=== PATIENT | male | born 1960 | race Caucasian/White ===

== ENCOUNTER → 2020-08-05 16:09 | Outpatient (REF) | payer OTHER, SELFPAY | LOC: ANHLAB 16:09 | PROVIDERS: PCP Family Medicine; Visit Provider Nurse Practitioner | DX: C44.519 Basal cell carcinoma of skin of other part of trunk (principal) | CPT/HCPCS: 88305 ==

== ENCOUNTER → 2020-09-22 07:48 | Outpatient (REF) | payer OTHER, SELFPAY | LOC: ANHLAB 07:48 | PROVIDERS: PCP Family Medicine; Visit Provider Nurse Practitioner | DX: C44.519 Basal cell carcinoma of skin of other part of trunk (principal) | CPT/HCPCS: 88305; 88331 ==

== ENCOUNTER → 2021-01-26 14:00 | Outpatient (REF) | payer OTHER, SELFPAY | LOC: ANHLAB 14:00 | PROVIDERS: PCP Family Medicine; Visit Provider Nurse Practitioner | DX: C44.629 Squamous cell carcinoma of skin of left upper limb, including shoulder (principal) | CPT/HCPCS: 88305 ==

== ENCOUNTER → 2021-05-07 03:27 | Outpatient (CLI) | payer OTHER, SELFPAY ==
[2021-05-07 20:01] LABS: SARS-CoV-2 RNA PCR Negative
== END ==
PROVIDERS: PCP Family Medicine; Visit Provider Family Medicine
DX: R05 Cough (principal); Z20.822 Contact with and (suspected) exposure to COVID-19
CPT/HCPCS: C9803; U0003; U0005

== ENCOUNTER → 2021-08-11 13:52 | Outpatient (REF) | payer OTHER, SELFPAY | LOC: ANHLAB 13:52 | PROVIDERS: PCP Family Medicine; Visit Provider Nurse Practitioner | DX: C44.311 Basal cell carcinoma of skin of nose (principal); C44.529 Squamous cell carcinoma of skin of other part of trunk; C44.209 Unspecified malignant neoplasm of skin of left ear and external auricular canal; L57.0 Actinic keratosis | CPT/HCPCS: 88305 ==

== ENCOUNTER → 2021-09-14 09:08 | Outpatient (REF) | payer OTHER, SELFPAY | LOC: ANHLAB 09:08 | PROVIDERS: PCP Family Medicine; Visit Provider Nurse Practitioner | DX: C44.629 Squamous cell carcinoma of skin of left upper limb, including shoulder (principal); C44.529 Squamous cell carcinoma of skin of other part of trunk | CPT/HCPCS: 88305; 88331 ==

== ENCOUNTER → 2021-09-28 07:02 | Outpatient (REF) | payer OTHER, SELFPAY | LOC: ANHLAB 07:02 | PROVIDERS: PCP Family Medicine; Visit Provider Nurse Practitioner | DX: C44.311 Basal cell carcinoma of skin of nose (principal); C44.229 Squamous cell carcinoma of skin of left ear and external auricular canal | CPT/HCPCS: 88305; 88331 ==

== ENCOUNTER → 2021-12-14 16:55 | Outpatient (REF) | payer OTHER, SELFPAY | LOC: ANHLAB 16:55 | PROVIDERS: PCP Family Medicine; Visit Provider Nurse Practitioner | DX: L57.0 Actinic keratosis (principal) | CPT/HCPCS: 88305 ==

== ENCOUNTER → 2022-03-23 10:36 | Outpatient (REF) | payer OTHER, SELFPAY | LOC: ANHLAB 10:36 | PROVIDERS: PCP Family Medicine; Visit Provider Nurse Practitioner | DX: C44.622 Squamous cell carcinoma of skin of right upper limb, including shoulder (principal) | CPT/HCPCS: 88305 ==

== ENCOUNTER 2022-06-14 13:00 | Outpatient (NON) | payer OTHER, SELFPAY | END 2022-06-14 13:01 | disposition home or self-care (01) | PROVIDERS: PCP Family Medicine; Visit Provider Nurse Practitioner | DX: C44.529 Squamous cell carcinoma of skin of other part of trunk (principal) | CPT/HCPCS: 88305 ==

== ENCOUNTER 2022-07-26 12:34 | Outpatient (NON) | payer OTHER, SELFPAY | END 2022-07-26 12:35 | disposition home or self-care (01) | LOC: ANHLAB 12:35 | PROVIDERS: PCP Family Medicine; Visit Provider Nurse Practitioner | DX: C44.519 Basal cell carcinoma of skin of other part of trunk (principal) | CPT/HCPCS: 88305; 88331 ==

== ENCOUNTER 2022-10-12 08:00 | Outpatient (NON) | payer OTHER, SELFPAY | END 2022-10-12 08:01 | disposition home or self-care (01) | PROVIDERS: PCP Family Medicine; Visit Provider Nurse Practitioner | DX: C44.222 Squamous cell carcinoma of skin of right ear and external auricular canal (principal) | CPT/HCPCS: 88305 ==

== ENCOUNTER 2022-12-06 13:31 | Outpatient (NON) | payer OTHER, SELFPAY | END 2022-12-06 13:32 | disposition home or self-care (01) | LOC: ANHLAB 13:31 | PROVIDERS: PCP Family Medicine; Visit Provider Nurse Practitioner | DX: C44.222 Squamous cell carcinoma of skin of right ear and external auricular canal (principal) | CPT/HCPCS: 88305; 88331 ==

== ENCOUNTER 2022-12-21 10:12 | Outpatient (NON) | payer OTHER, SELFPAY | END 2022-12-21 10:13 | disposition home or self-care (01) | LOC: ANHLAB 12-22 10:13 | PROVIDERS: PCP Family Medicine; Visit Provider Nurse Practitioner | DX: D49.2 Neoplasm of unspecified behavior of bone, soft tissue, and skin (principal) | CPT/HCPCS: 88305 ==

== ENCOUNTER 2023-01-03 09:29 | Outpatient (NON) | payer OTHER, SELFPAY | END 2023-01-03 09:30 | disposition home or self-care (01) | LOC: ANHLAB 09:33 | PROVIDERS: PCP Family Medicine; Visit Provider Nurse Practitioner | DX: C44.319 Basal cell carcinoma of skin of other parts of face (principal) | CPT/HCPCS: 88305; 88331 ==

== ENCOUNTER 2023-04-05 11:56 | Outpatient (NON) | payer OTHER, SELFPAY | END 2023-04-05 11:57 | disposition home or self-care (01) | PROVIDERS: PCP Family Medicine; Visit Provider Nurse Practitioner | DX: C44.622 Squamous cell carcinoma of skin of right upper limb, including shoulder (principal) | CPT/HCPCS: 88305 ==

== ENCOUNTER 2023-06-01 12:36 | Outpatient (CLI) | payer OTHER, SELFPAY ==
[2023-06-01 13:30] LABS: Basophils Percent Auto 0.2 % (0.2-1.2); Eosinophils Percent Auto 0.6 % (0-4.4); Hematocrit 40.2 % (42.0-52.0); Hemoglobin 12.8 g/dL (14.0-18.0); Immature Granulocyte Absolute 0.04 K/mm3 (0.00-0.031); Immature Granulocyte Percent A 0.6 % (0-0.5); Lymphocytes Absolute Auto 2.47 K/mm3 (0.9-3.2); Lymphocytes Percent Auto 39.7 % (18.3-44.2); Mean Corpuscular HGB Conc 31.8 g/dl (32-36); Mean Corpuscular Hemoglobin 28.1 pg (26-34); Mean Corpuscular Volume 88.4 fl (80-100); Mean Platelet Volume 11.2 fl (7.4-10.4); Monocytes Absolute Auto 0.3 K/mm3 (0.1-0.6); Monocytes Percent Auto 5.3 % (2.6-8.5); Neutrophils Absolute Auto 3.3 K/mm3 (1.3-6.7); Neutrophils Percent Auto 53.6 % (45.5-73.1); Platelet Count Result 185 k/mm3 (150-375); Red Blood Count 4.55 M/mm3 (4.6-6.20); Red Cell Distribution Width 15.9 % (11.5-14.5); White Blood Count 6.2 K/mm3 (4.5-10.0)
[2023-06-01 20:05] LABS: Alanine Aminotransferase 31 U/L (6-50); Albumin Level 4.4 g/dL (3.5-5.1); Alkaline Phosphatase 75 U/L (38-126); Anion Gap 4 mmol/L (8-16); Aspartate Amino Transferase 36 U/L (17-59); Bilirubin,Total 0.9 mg/dL (0.2-1.3); Blood Urea Nitrogen 15 mg/dL (9-20); Calcium 9.3 mg/dL (8.4-10.2); Carbon Dioxide 30 mmol/L (22-30); Chloride 104 mmol/L (98-107); Cholesterol 154 mg/dL (0-200); Estimated Glomerular Filt Rate > 60; Glucose 86 mg/dL (65-110); HDL Direct 40 mg/dL; Potassium 4.1 mmol/L (3.4-5.0); Sodium 138 mmol/L (137-145); Triglycerides 169 mg/dL (<150)
[2023-06-01 20:16] LABS: LDL Cholesterol Direct 79 mg/dL
[2023-06-01 20:52] LABS: Thyroid Stimulating Hormone Reflex 0.791 uIU/mL (0.465-4.68)
[2023-06-01 21:03] LABS: Vitamin B12 > 1000.0 pg/mL (239-931)
[2023-06-03 18:08] LABS: Prostate Specific Antigen 2.8 ng/mL (< OR = 4.0)
[2023-06-05 16:47] LABS: Testosterone Free 49.4 pg/mL (35.0-155.0); Testosterone Total 494 ng/dL (250-1100)
== END 2023-06-01 12:37 | disposition home or self-care (01) ==
LOC: ANHGOSHLAB 12:39
PROVIDERS: PCP Family Medicine; Visit Provider Family Medicine
DX: Z00.00 Encounter for general adult medical examination without abnormal findings (principal); E78.5 Hyperlipidemia, unspecified; Z12.5 Encounter for screening for malignant neoplasm of prostate; E53.8 Deficiency of other specified B group vitamins; E55.9 Vitamin D deficiency, unspecified; G47.00 Insomnia, unspecified; Z13.29 Encounter for screening for other suspected endocrine disorder; R53.83 Other fatigue
CPT/HCPCS: 36415; 80053; 80061; 82306; 82607; 84153; 84402; 84403; 84443; 85025; G0103

== ENCOUNTER 2023-06-21 09:13 | Outpatient (CLI) | payer OTHER, SELFPAY ==
[2023-06-21 10:05] LABS: IFOB Positive Control Positive; Immunochemical Fecal Occult Bl Negative (N)
== END 2023-06-21 09:14 | disposition home or self-care (01) ==
LOC: ANHLAB 09:14
PROVIDERS: PCP Family Medicine; Visit Provider Nurse Practitioner Family
DX: K52.9 Noninfective gastroenteritis and colitis, unspecified (principal)
CPT/HCPCS: 82274; 87045; 87427; 87449

== ENCOUNTER 2023-07-07 02:24 | Day surgery (SDC) | payer OTHER, SELFPAY ==
[2023-06-30 11:17] VITALS: BMI 27.3
[2023-07-07 12:02] VITALS: BP 119/91; PULSE 98; RESP 18; TEMP 36.3; O2SAT 97
[2023-07-07] MEDS: LACTATED RINGERS 1,000 ML 150 ML IV CONT (12:15)
--- NOTE | 2023-07-07 12:27 | WPDHPUPDATE1 ---
History and Physical Update Update Date/Time: 07/07/23 12:27 History and Physical has been reviewed, including an updated exam of the patient. There are NO changes in the patient's condition. Risks, benefits, and alternatives have been discussed and questions answered. Patient agrees to proceed with procedure.
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
--- NOTE | 2023-07-07 13:33 | SUR.OPER ---
EGD: Start 13:22, End 13:25 Colonoscopy: Start 13:31, End 13:43
[2023-07-07 13:46] VITALS: BP 103/64; PULSE 80; RESP 18; O2SAT 93
[2023-07-07 13:56] VITALS: BP 105/70; PULSE 83; RESP 19; O2SAT 96
[2023-07-07 14:06] VITALS: BP 119/73; PULSE 72; RESP 19; O2SAT 96
== END 2023-07-07 14:30 | disposition home or self-care (01) ==
PROVIDERS: PCP Family Medicine; Visit Provider Internal Medicine Gastroenterology
PROC: 0DJ08ZZ Inspection of Upper Intestinal Tract, Via Natural or Artificial Opening Endoscopic (ICD-10-PCS; CPT 43235; principal; 2023-07-07 13:00)
DX: R19.7 Diarrhea, unspecified (principal); D12.3 Benign neoplasm of transverse colon; K63.5 Polyp of colon; K62.1 Rectal polyp; K64.8 Other hemorrhoids; K22.2 Esophageal obstruction; K21.00 Gastro-esophageal reflux disease with esophagitis, without bleeding; K29.80 Duodenitis without bleeding; J44.9 Chronic obstructive pulmonary disease, unspecified; Z79.51 Long term (current) use of inhaled steroids; F17.210 Nicotine dependence, cigarettes, uncomplicated
CPT/HCPCS: 45385; 45380; 43450; 43239; 88305; J2704; J7120

== ENCOUNTER 2023-08-10 10:39 | Outpatient (CLI) | payer OTHER, SELFPAY ==
--- NOTE | 2023-08-10 11:15 | NEURO_ITS ---
Impression: # Complains of inability to close left hand. # No Carpal Tunnel Syndrome. # Moderate left ulnar neuropathy across the elbow. # Mildly abnormal needle/EMG exam. Nerve Conduction Studies Anti Sensory Summary Table Stim Site NR Peak (ms) P-T Amp (?V) Site1 Site2 Delta-P (ms) Dist (cm) Eder (m/s) Left Median Anti Sensory (2-3nd Digit) Wrist 3.3 26.2 Wrist 2-3nd Digit 3.3 14.0 42 Wrist 3.2 23.6 Wrist 2-3nd Digit 3.3 14.0 42 Left Radial Anti Sensory (Base 1st Digit) Wrist 2.0 11.6 Wrist Base 1st Digit 2.0 0.0 Left Ulnar Anti Sensory (5th Digit) Wrist 2.3 18.8 Wrist 5th Digit 2.3 14.0 61 Motor Summary Table Stim Site NR Onset (ms) O-P Amp (mV) Site1 Site2 Delta-0 (ms) Dist (cm) Eder (m/s) Left Median Motor (Abd Poll Brev) Wrist 3.8 1.8 Elbow Wrist 5.0 30.0 60 Elbow 8.8 2.0 Left Ulnar Motor (Abd Dig Minimi) Wrist 2.5 7.8 A Elbow Wrist 6.6 32.0 48 A Elbow 9.1 5.9 B Elbow Wrist 4.0 24.0 60 B Elbow 6.5 6.5 F Wave Studies NR F-Lat (ms) L-R F-Lat (ms) Left Median (Mrkrs) (Abd Poll Brev) 26.86 Left Ulnar (Mrkrs) (Abd Dig Min) 30.28 EMG Side Muscle Nerve Root Ins Act Fibs Amp Dur Recrt Comment Left 1stDorInt Ulnar C8-T1 Nml Nml Nml >12ms Reduced Left Ext Indicis Radial (Post Int) C7-8 Nml Nml Nml Nml Nml Left Ext Digitorum Radial (Post Int) C7-8 Nml Nml Nml Nml Nml Left BrachioRad Radial C5-6 Nml Nml Nml Nml Nml Left PronatorTeres Median C6-7 Nml Nml Nml Nml Nml Left Abd Poll Brev Median C8-T1 Nml Nml Nml Nml Nml Left ABD Dig Min Ulnar C8-T1 Nml Nml Nml >12ms Reduced MTDD
== END 2023-08-10 10:40 | disposition home or self-care (01) ==
LOC: ANHNEURO 10:40
PROVIDERS: PCP Family Medicine; Visit Provider Physician Assistant
DX: G56.22 Lesion of ulnar nerve, left upper limb (principal)
CPT/HCPCS: 95886; 95909

== ENCOUNTER 2024-08-07 11:22 | Outpatient (CLI) | payer OTHER, SELFPAY ==
[2024-08-07 12:06] LABS: Basophils Percent Auto 0.4 % (0.2-1.2); Eosinophils Absolute Auto 0.1 K/mm3 (0-0.3); Eosinophils Percent Auto 1.2 % (0-4.4); Hematocrit 39.3 % (42.0-52.0); Hemoglobin 12.5 g/dL (14.0-18.0); Immature Granulocyte Absolute 0.03 K/mm3 (0.00-0.031); Immature Granulocyte Percent A 0.6 % (0-0.5); Lymphocytes Absolute Auto 1.84 K/mm3 (0.9-3.2); Lymphocytes Percent Auto 36.4 % (18.3-44.2); Mean Corpuscular HGB Conc 31.8 g/dl (32-36); Mean Corpuscular Hemoglobin 27.8 pg (26-34); Mean Corpuscular Volume 87.3 fl (80-100); Mean Platelet Volume 10.2 fl (7.4-10.4); Monocytes Absolute Auto 0.5 K/mm3 (0.1-0.6); Monocytes Percent Auto 8.9 % (2.6-8.5); Neutrophils Absolute Auto 2.7 K/mm3 (1.3-6.7); Neutrophils Percent Auto 52.5 % (45.5-73.1); Platelet Count Result 190 k/mm3 (150-375); Red Cell Distribution Width 15.9 % (11.5-14.5); White Blood Count 5.1 K/mm3 (4.5-10.0)
[2024-08-07 12:22] LABS: Alanine Aminotransferase 17 U/L (6-50); Albumin Level 4.1 g/dL (3.5-5.1); Alkaline Phosphatase 74 U/L (38-126); Anion Gap 4 mmol/L (4-12); Aspartate Amino Transferase 31 U/L (17-59); Bilirubin,Total 0.5 mg/dL (0.2-1.3); Blood Urea Nitrogen 14 mg/dL (9-20); Carbon Dioxide 29 mmol/L (22-30); Chloride 107 mmol/L (98-107); Cholesterol 185 mg/dL (0-200); Estimated Glomerular Filt Rate > 60; Glucose 103 mg/dL (65-110); HDL Direct 38 mg/dL; Potassium 4.1 mmol/L (3.4-5.0); Sodium 140 mmol/L (137-145); Triglycerides 310 mg/dL (<150)
[2024-08-07 12:34] LABS: LDL Cholesterol Direct 83 mg/dL
[2024-08-07 12:51] LABS: Prostate Specific Antigen 2.5 ng/mL (< OR = 4.0)
[2024-08-07 13:10] LABS: Vitamin D 25 Hydroxy 30.1 ng/mL
== END 2024-08-07 11:23 | disposition home or self-care (01) ==
LOC: ANHGOSHLAB 11:23
PROVIDERS: PCP Nurse Practitioner Family; Visit Provider Nurse Practitioner Family
DX: I10 Essential (primary) hypertension (principal); E55.9 Vitamin D deficiency, unspecified; Z12.5 Encounter for screening for malignant neoplasm of prostate; Z00.00 Encounter for general adult medical examination without abnormal findings; E78.5 Hyperlipidemia, unspecified
CPT/HCPCS: 36415; 80053; 80061; 82306; 84153; 84443; 85025; G0103

== ENCOUNTER 2024-10-04 15:19 | Outpatient (CLI) | payer OTHER, SELFPAY ==
--- NOTE | ~2024-10-04 | CT_ITS ---
EXAMINATION: CT soft tissue neck w con DATE: 10/04/2024 16:01 INDICATION: Localized enlarged lymph nodes. TECHNIQUE: Computed tomography (CT) of the neck was performed with 75 mL Omnipaque-350 intravenous co ntrast. Automated exposure control and iterative reconstruction technique were employed. The dose-angel gth product was 671.75 mGy-cm. COMPARISON: None FINDINGS: There is mild scarring at the lung apices. There is moderate emphysema. There is right high internal jugular chain lymphadenopathy with cystic areas with the largest node measuring 2.4 x 2.0 c m. There is asymmetric mucosal thickening in the pharynx on the right. There is plaque in the proxima l internal carotid arteries with less than 50% stenosis relative to normal distal artery lumen diamet ers. There is an old blowout fracture of floor of left orbit. There is mild mucosal thickening in the paranasal sinuses. The mastoid air cells are normal. There is severe cervical spondylosis. IMPRESSION: 1. 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 Ultr asound-guided core needle biopsy is recommended. Reviewed, dictated and finalized at location B. 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 Right internal jugular chain lymphadenopathy, most likely metastatic squamou s cell carcinoma. Ultrasound-guided core needle biopsy is recommended.
[2024-10-04 15:54] LABS: Estimated Glomerular Filt Rate > 60
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
== END 2024-10-04 15:20 | disposition home or self-care (01) ==
PROVIDERS: PCP Nurse Practitioner Family; Visit Provider Nurse Practitioner Family
DX: R59.0 Localized enlarged lymph nodes (principal)
CPT/HCPCS: 70491; Q9967

== ENCOUNTER 2024-10-25 12:21 | Outpatient (CLI) | payer OTHER, SELFPAY ==
--- NOTE | ~2024-10-25 | PE_ITS ---
EXAMINATION: PET skull to mid thigh DATE: 10/25/2024 14:03 INDICATION: Non-Hodgkin's lymphoma. TECHNIQUE: Blood glucose level was 97 mg/dL. 9.774 mCi of 18-fluorodeoxyglucose (18-FDG) was administ ered i.v. Low dose computed tomography (CT) images were acquired from the base of the brain to the pr oximal thighs for attenuation correction and anatomic localization. Automated exposure control was em ployed. Dose-length product (DLP) was 1242 mGy-cm. Positron emission tomography (PET) images were acq uired in the same distribution. COMPARISON: Neck CT 10/04/2024 FINDINGS: Head/neck: There is mucosal thickening in the oropharynx on the right with increased activity. There is high right internal jugular chain lymphadenopathy with increased activity. For example, a 2.1 x 1. 8 cm node demonstrates maximum SUV of 14.9. Chest: There is moderate emphysema. There is mild atelectasis bilaterally. No pleural effusion. The h eart size is normal. No pericardial effusion. Abdomen/pelvis/proximal thighs: The liver and spleen are normal. The gallbladder is contracted. The p ancreas, adrenal glands, and kidneys are normal. The prostate is moderately enlarged. There is divert iculosis of the colon without evidence of diverticulitis. There are no dilated loops of bowel. The ap pendix is normal. A penile prosthesis is noted. There are no pathologically enlarged lymph nodes. The re is no free intraperitoneal fluid. There is no osseous malignancy. There are changes of posterior f usion procedure in lumbar spine. IMPRESSION: 1. High right internal jugular chain lymphadenopathy with increased activity, most likely metastatic squamous cell carcinoma. Ultrasound-guided core needle biopsy is recommended. 2. Mucosal thickening with increased activity in the right oropharynx suspicious for primary squamous cell carcinoma. Reviewed, dictated and finalized at location [facility] IMPRESSION: 1. High right internal jugular chain lymphadenopathy with increased activity, m ost likely metastatic squamous cell carcinoma. Ultrasound-guided core needle bi opsy is recommended. 2. Mucosal thickening with increased activity in the right oropharynx suspiciou s for primary squamous cell carcinoma.
--- OUTSIDE RECORDS SUMMARY | 2024-10-25 12:25 | XMS_ITS | Encounter Summary ---
Author Organization [facility] Address [address] [place] [address] Care Team Providers Care Night Coordinator Name Role Phone Unavailable Primary Care Provider Unavailabl e Encounter Details Date Type Department Care Team (Late Contact Info) Description 10/25/2024 Orders Only [facility] [address] [place] [address] Markell Godfrey MD [facility] [employer] [address] [place] [phone] Lymphadenopathy of head and neck region (Primary Dx) Social History Tobacco Use Types Packs/Day Years Used Date Smoking Tobacco: Every Day Cigarettes 0.5 50 Started: 10/15/1974 Alcohol Use Standard Drinks/Week Comments Yes 0 (1 standard drink = 0.6 oz pur e alcohol) ONLY DURING HOLIDAYS Sex and Gender Information Value Date Recorded Sex Assigned at Not on file Legal Sex Male 1:20 PM COKE LOADER Gender Identity Not on file Sexual Orientation Not on file documented as of this encounter Plan of Treatment Upcoming Encounters Date Type Department Care Team (Late Contact Info) Description 11/01/2024 10:00 AM COKE LOADER Office Visit [facility] On[facility] Hematology - [place] [address] [place] [address] Markell Godfrey MD [facility] [employer] [address] [place] [phone] Scheduled Orders Name Type Priority Associated Diagnoses Orde r Schedule BIOPSY Procedures Routine Lymphadenopathy of head and neck region Expected: 10/25/2024, Expires: 10/25/2025 documented as of this encounter Visit Diagnoses Diagnosis Lymphadenopathy of head and neck region- Primary documented in this encounter
--- OUTSIDE RECORDS SUMMARY | 2024-10-25 12:25 | XMS_ITS | Referral Summary ---
Author Organization [facility] Address [address] [place] [address] Care Team Providers Care Automobile Sales Consultant Name Role Phone Mark Scott MD Primary Care Provider [phone] Encounters Date Type Department Care Team Description 09/20/2024 Orders Only [facility] [address] [place] [address] Unknown, Notinfile 08/08/2024 1:30 PM CROP CONSULTANT Office Visit [facility] Pulmonary at [address] [place] [address] Lisa Garcia NP Centrilobular emphysema (HCC) (Primary Dx); Cigarette nicotine dependence without complication from Last 3 Months Allergies Active Allergy Reactions Criticality Noted Date Comments Codeine Nausea & Vomiting Low 11/06/2018 Medications albuterol HFA (PROVENTIL HFA,VENTOLIN HFA,PROAIR HFA) 90 mcg/actuation inhaler Inhale 2 puffs every 6 (six) hours as needed for wheezing Active multivitamin tabletIndicatio ns:Vitamin Deficiency Prevention Take 1 tablet by mouth daily Active cholecalciferol (VITAMIN D3) 2,000 unit tablet Take 1 tablet (2,000 Units total) by mouth daily Active vitamin E 400 unit capsule Take 1 capsule (400 Units total) by mouth daily Active ascorbic acid (ascorbic acid with aubree hips) 500 mg tablet,chewable Take 1 tablet/chew tab (500 mg total) by mouth daily Active fluticasone-ume clidin-vilanter (Trelegy Ellipta) 200-62.5-25 mcg inhaler Inhale 1 puff daily Active albuterol 2.5 mg /3 mL (0.083 %) nebulizer solution Take 3 mL (2.5 mg total) by nebulization every 6 (six) hours as needed for wheezing Active losartan (COZAAR) 50 mg tablet Take 2 tablets (100 mg total) by mouth daily Active nicotine (NICODERM CQ) [address] 1 patch on the skin daily 3 Active fluticasone-ume clidin-vilanter (Trelegy Ellipta) 200-62.5-25 mcg inhalerIndicati ons:Centrilobul ar emphysema (HCC) Inhale 1 puff daily Rinse and spit after use 1 each 11 4 05/04/[address] (PROTONIX) 40 mg EC tablet Take 1 tablet (40 mg total) by mouth daily Active Active Problems Problem Noted Date Diagnosed Date Centrilobular emphysema 03/27/2024 Assessment & Plan (08/08/2024 3:04 PM CROP CONSULTANT): Continue Trelegy Ellipta 200 daily He has good bronchodilator response on pulmonary function testing, I do not have a recent CBC to assess eosinophilia Continue albuterol as needed only, we have discussed indications for use I continue to recommend pulmonary rehab after physical therapy is completed I filled out his papers for insurance after his last office visit and he anticipates this will need to be completed approximally every 3 months We have discussed signs and symptoms that would require earlier evaluation or change to his plan of care Assessment & Plan (05/04/2024 1:23 PM CDT): Continue Trelegy Ellipta 200 daily He has good bronchodilator response on pulmonary function testing, I am awaiting CBC to assess eosinophilia Continue albuterol as needed only, we have discussed indications for use I continue to recommend pulmonary rehab after physical therapy is completed Assessment & Plan (03/27/2024 11:43 AM CDT): Continue Trelegy Ellipta 200 once daily He has not had frequent exacerbations or pneumonias Requested CBC today, consider de-escalation of therapy Albuterol as needed PRN, discussed indications for use He is currently in physical therapy, I recommend ID after this is completed and he is released from his surgeon We have discussed that a return to his previous line of work will be unlikely Recheck PFT and walk testing Cigarette nicotine dependence without complicati on 03/27/2024 Assessment & Plan (08/08/2024 3:04 PM CROP CONSULTANT): He continues to smoke 1/2 to 3/4 pack cigarettes per day - Smoking cessation counseling and techniques reviewed at length - Avoid triggers and use distraction techniques - He is aware of the [place] Tobacco Quit line: 0-675-KBCG-YES for free services - 5 minutes spent discussing cessation He has nicotine patches at home and I have encouraged him to use these to cut down his current use He is due for annual lung cancer screening in December of 2024 Assessment & Plan (05/04/2024 1:24 PM CDT): - Smoking cessation counseling and techniques reviewed at length - Avoid triggers and use distraction techniques - He is aware of the [place] Tobacco Quit line: 5-648-LURM-YES for free services - 4 minutes spent discussing cessation He has nicotine patches at home He is due for annual lung cancer screening in December of 2024 Assessment & Plan (03/27/2024 11:43 AM CDT): - Smoking cessation counseling and techniques reviewed at length - Avoid triggers and use distraction techniques - Participate in support groups - Information given regarding [place] Tobacco Quit line: 0-560-HGEN-YES for free services - 4 minutes spent discussing cessation Continue nicotine patches, order sent today Annual LDCT due 12/2024 Dyspnea 02/22/2024 Social History Tobacco Use Types Packs/Day Years Used Date Smoking Tobacco: Every Day Cigarettes 0.5 52.1 Started: 1972 Smokeless Tobacco: Never Tobacco Cessation:Ready to Q uit: Not Asked; Counseling Given: Not Answered Alcohol Use Standard Drinks/Week Comments No 0 (1 standard drink = 0.6 oz pur e alcohol) Personal Safety Answer Date Recorded Have you ever been in or are you currently in a harmful physical or emotional relationship or is someone making you feel afraid or unsafe? Denies 03/06/2024 Sex and Gender Information Value Date Recorded Sex Assigned at Not on file Legal Sex Male 11:08 AM CROP CONSULTANT Gender Identity Not on file Sexual Orientation Not on file Last Filed Vital Signs Vital Sign Reading Time Taken Comments Blood Pressure 130/76 08/08/2024 1:38 PM CROP CONSULTANT Pulse 93 08/08/2024 1:38 PM CROP CONSULTANT Temperature 36.5 C (97.7 F) 08/08/2024 1:38 PM CROP CONSULTANT Respiratory Rate 18 03/06/2024 10:12 AM CDT Oxygen Saturation 94% 08/08/2024 1:38 PM CROP CONSULTANT Inhaled Oxygen Concentration - - Weight 91.7 kg (202 lb 1.6 oz) 08/08/2024 1:38 P M CROP CONSULTANT Height 175.3 cm (5' 9 ) 08/08/2024 1:38 PM CROP CONSULTANT Body Mass Index 29.84 08/08/2024 1:38 PM CROP CONSULTANT Plan of Treatment Not on file Medical Devices Implanted Type Area Simulation Specialist Device Identifier Shelf Expiration Date Model / Serial / Lot Coloplast Macy [id number] Titan Lock-Out Inflatable Self Contain Fluid Fill Tube Standard Latex Free - Sn/A - [id number] Implanted:Qty: 1 on 11/10/2018 by Rick Gil MD at [facility] Other - see comments N/A: Penis Coloplast Macy 07/11/2023 [id number] / N/A / [id number] Description:Assembly Kit Following select items implanted: Connectors Rear tip extenders Coloplast Macy [id number] Titan Coloplast Lock-Out Inflatable Self Contain Fluid Fill Valve Latex Free - Sn/A - [id number] Implanted:Qty: 1 on 11/10/2018 by Rick Gil MD at [facility] Other - see comments Right: Abdomen Coloplast Macy 08/17/2023 [id number] / N/A / [id number] Description:[place] Coloplast Macy [id number] Titan Coloplast Lock-Out 18cm Pump Set Inflatable Fluid Fill Soft Latex Free - Sn/A - [id number] Implanted:Qty: 1 on 11/10/2018 by Rick Gil MD at [facility] Other - see comments Right: Penis Coloplast Macy 02/13/2023 [id number] / N/A / [id number] Cordis Mynxgrip 5fr Balloon Catheter Integrate Sealant Lock Latex Free [id number] - [id number] Implanted:Qty: 1 on 03/06/2024 by Mat Byrne MD at [facility] 01/18/2026 [id number] / / [id number] Procedures Procedure Name Priority Date/Time Associated Diagnosis Comments SURGICAL PATHOLOGY Routine 09/20/2024 12 :00 AM CROP CONSULTANT from Last 3 Months Results * Surgical pathology (09/20/2024 12:00 AM CROP CONSULTANT) Skin, excision 09/20/2024 09/21/2024 8:35 AM CROP CONSULTANT Narrative 09/25/2024 1:05 PM CROP CONSULTANT EPIC results best viewed via link to PDF [facility] [address] [place] [address], [address], [place] [address] [email or web address] Note to Patients: This report may contain a detailed description of human tissue sent by a health care provider to the laboratory for pathologic evaluation. The content of this report is essential for diagnosis and may provide important critical findings. This information may be unfamiliar to patients to review without a medical professional present. It is advised that the patient review this report in the presence of a health care provider who can answer questions and explain the details. FINAL REPORT Patient Information: PATIENT NAME: ELIESER YOUNG SEX: M : 1960 (Age: 64) Specimen Information: COLLECTED: 09/20/2024 RECEIVED: 09/21/2024 REPORTED: 09/25/2024 Submitting Physician Information: Zamzam Plunkett [facility], [address] [place] [address], DERMATOPATHOLOGY REPORT RESULTS DIAGNOSIS: SKIN, STERNUM, EXCISION: SCAR FROM A PREVIOUS PROCEDURE Note: There is no evidence of malignancy. There is an incidental dermal melanocytic nevus. exr/lac By this signature, I attest that the above diagnosis is based upon my personal examination of the slides(and/or other material indicated in the diagnosis). Jackei Paris M.D. Report Electronically Reviewed and Signed Out By Jackie Paris M.D. 09/25/2024 13:05:14 CLINICAL INFORMATION WELL DIFFERENTIATED SCC SPECIMEN DATA MICROSCOPIC DESCRIPTION: There is a proliferation of fibroblasts aligned parallel to the skin surface interposed among linearly arranged, thickened collagen bundles and small blood vessels. There are uniform nests, cords and strands of small, monomorphous melanocytes within the dermis. (L90.5, D22.9) GROSS DESCRIPTION: Received in a formalin-containing bottle is an elliptical piece of pale donald, slightly wrinkled, mildly domed skin and adipose tissue measuring 2.8 by 1.3 by 0.3 cm. There is no orienting suture. The surgical margins are inked blue. The specimen is sectioned into 10 pieces and submitted in 4 cassettes with the tips in the first cassette. The tips are tagged orange for orienting purposes. Due to shrinkage, measurements may be different than those at time of procedure. exr/anc ICD-9 A; ZSD.808 ZSD.1387 Clerical Data A; 42936 The characteristics of special, immunohistochemical, and immunofluorescence stains and in-situ hybridization tests performed by the [facility] were deemed acceptable in ongoing quality rn measures and in compliance with regulations drawn from the Clinical Laboratory Improvement Act uj7656 (CLIA '88). Control reactions for all stains performed were deemed adequate and appropriate by a pathologist prior to evaluation of patient tissue. Some diagnoses were rendered with the assistance of laboratory-developed tests utilizing analyte-specific reagents; the performance characteristic of these tests were determined by [facility] and are not cleared or approved by the [place] Food an Drug administration. Laboratory developed test may only be performed in a facility that is certified by the [facility] as a high-complexity laboratory under CLIA '88. These tests are used for clinical purposes and are not investigational. us Notinfile Unknown LAB PATHOLOGY ORDERABLES Final Result from Last 3 Months Insurance [facility] Care Teams Automobile Sales Consultant Relationship Specialty Start Date End Date Mark Scott MD [address] [place] [address] PCP - General 11/10/18
--- OUTSIDE RECORDS SUMMARY | 2024-10-25 12:25 | XMS_ITS | Continuity of Care Document ---
Author Organization [facility] Address [address] [place] [address] Phone Care Team Providers Care Outpatient Dietitian Name Role Phone Drew WEIR, Usman Unavailable Unavaila ble Allergies, Adverse Reactions, Alerts Substance Reaction Status Criticality codeine Active No Information Medications Medication Instructions Dosage Effective Dates (start - stop) Status Comments oxycodone 10 mg tablet take 1 tablet by oral route every 4 - 6 hours as needed for Pain 10 MG - Active ondansetron [address] 1 tablet by translingual route 6 times every hours on top of the tongue where they will dissolve, then swallow as needed for nausea - Active Procedures Procedure Date REVISE ULNAR NERVE AT ELBOW OFFICE/OUTPATIENT VISIT EST OFFICE/OUTPATIENT VISIT EST POSTOP FOLLOW-UP VISIT POSTOP FOLLOW-UP VISIT POSTOP FOLLOW-UP VISIT ARTHROSCOP ROTATOR CUFF REPR Ultra Sling Advance Directives Directive Yes / No Effective Date File Name No Information Encounters Encounter Description Practice Location Reason(s) For Visit Diagnoses Date Provider Providers Copied on Encounter [facility], [address], [place], [address], [place] tel:[phone] [facility] Lesion of ulnar nerve, left upper limb 3 Drew Mary. [address], [place], [address]. tel:[phone] OFFICE/OUTPA TIENT VISIT EST [facility], [address], [place], [address], [place] tel:[phone] [facility] Cubital tunnel syndrome, leftBody mass index [BMI] 28.0-28.9, adult - 3 [address] Usman. [address], [place], [address]. tel:[phone] Referring Provider: Miguel Rene, [address] [facility] [address], [place], [address]. tel:[phone] OFFICE/OUTPA TIENT VISIT EST [facility], [address], [place], [address], [place] tel:[phone] [facility] S/P right rotator cuff repair 3 Cez[address] Wyman. [address], [place], [address]. tel:[phone] Referring Provider: Miguel Rene, [address] [facility] [address], [place], [address]. tel:[phone] [facility], [address], [place], [address], [place] tel:[phone] [facility] S/P right rotator cuff repair [address] Usman. [address], [place], [address]. tel:[phone] Referring Provider: Miguel Rene, [address] [facility] [address], [place], [address]. tel:[phone] [facility], [address], [place], [address], [place] tel:[phone] [facility] No Information [address] Usman. [address], [place], [address]. tel:[phone] [facility], [address], [place], [address], [place] tel:[phone] [facility] S/P right rotator cuff repair 3 Cezar Wyman. [address], [place], [address]. tel:[phone] Referring Provider: Miguel Rene [address] [place] [address] [address], [place], [address]. tel:[phone] [facility], [address], [place], [address], [place] tel:[phone] [facility] S/P right rotator cuff repair 3 [address], [place], [address]. tel:[phone] Referring Provider: Miguel Rene, [address] [facility] [address], [place], [address]. tel:[phone] [facility], [address], [place], [address], [place] tel:[phone] [facility] S/P right rotator cuff repair 3 Drew Mary. [address], [place], [address]. tel:[phone] [facility], [address] [address], [place], [address], [place] tel:[phone] [facility] Complete tear of right rotator cuff, unspecified whether traumaticRigh t bicipital tenosynovitis Degenerative superior labral kikalrsx-im-b osterior (SLAP) tear of right shoulderOther sprain of right shoulder joint, initial encounterStra in of muscle, fascia and tendon of long head of biceps, right arm, initial encounterImpi ngement syndrome of right shoulderOsteo phyte, right shoulder 3 Drew Mary. [address], [place], [address]. tel:[phone] [facility], [address], [place], [address], [place] tel:[phone] [facility] Incomplete tear of right rotator cuff, unspecified whether traumatic 3 Drew Mary. [address], [place], [address]. tel:[phone] [facility], [address] [facility] [address], [place], [address], [place] tel:[phone] [facility] Incomplete tear of right rotator cuff, unspecified whether traumaticBody mass index [BMI] 28.0-28.9, adult 3 Drew Mary. [address], [place], [address]. tel:[phone] Referring Provider: Miguel Rene, [address] [place] [address] [address], [place], [address]. tel:[phone] Family History Family Member Type Diagnosis Age At Onset No Information Payers Payer name Insurance type Covered republican ID [place] rosado(s) [facility] [employer] [facility] [place] [id number] Social History Type Description Quantity Date Captured Comments Alcohol Use Details Unknown Caffeine Use Details Unknown Tobacco Use Status Smoking Status No Information Sex Male Chief Complaint And Reason For Visit No Information Reason For Referral Reason For Referral No Information Plan Of Treatment Date Type Action Status Goal Tobacco cessation counseling completed History Of Present Illness Encounter Date Complaint History Of Prese nt Illness No Information Functional Status Date Functional Assessmen t No Information Instructions Date Instruction Additional Infor mation Weight loss from baseline weight Related to Body mass index [BMI] 28.0-28.9, adult Inform physician of any changes in symptoms or pain. Related to S/P right rotator cuff repair Take medications as directed. Re lated to S/P right rotator cuff repair Giving encouragement to exercise Related to Body mass index [BMI] 28.0-28.9, adult Assessments Type Assessment Date No Information Patient Care Teams Name Effective Dates (start - stop) Status Members No Information
--- OUTSIDE RECORDS SUMMARY | 2024-10-25 12:25 | XMS_ITS | Patient Health Record ---
Author Organization [facility] Billing Info Address [address] [place] [id number] Support Name Relationship Address Phone Lan Lucy Emergency Contact [address] [place] [address] Matias Benoit Guarantor Unknown Reason For Referral No Information Plan Of Treatment No Information
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
--- OUTSIDE RECORDS SUMMARY | 2024-10-25 12:25 | XMS_ITS | Patient Health Summary ---
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 kidneys enhance symmetrically. There is no evidence of hydronephrosis or nephrolithiasis. Gastrointestinal: The stomach is fluid-filled and moderately distended. The stomach and visualized loops of large and small bowel are otherwise unremarkable. Normal appendix. Mesentery/Peritoneum/Retroperitoneum: No free intraperitoneal air. No free fluid in the abdomen or pelvis. There is a implanted penile device, with the reservoir present within the rectus abdominis muscle within the right lower quadrant of the abdomen. The reservoir device appears to be rotated internally. There is some penial erection noted. Bladder: Normal. Reproductive Organs: The prostate is normal. Abdominal Vasculature: Atherosclerotic calcification of the aorta and its branch vessels. Bones: Bone windows demonstrate no suspicious lytic or blastic lesions. The visible osseous structures are intact. Degenerative changes are seen in the spine. Soft tissues: Normal. Procedure Note Angelina Squires MD - 07/19/2022 PROCEDURE: CT CHEST ABDOMEN PELVIS W CONT, DATE/TIME OF EXAM:07/19/2022 3:53 PM, LOCATION [facility] INDICATION: Trauma COMPARISON: None. TECHNIQUE: CT of the chest, abdomen, and pelvis was performed after the uneventful administration of 100 mL of Isovue 370 intravenous contrast according to standard protocol. Findings: Chest: Lower Neck and Axillae: There is a hypoattenuating right thyroid lobe nodule measuring approximately 7 mm in maximal diameter (series 3 image 10). Lungs: Centrilobular and paraseptal emphysema is present. No suspiciouspulmonary nodules are identified. No pleural fluid or pneumothorax is present. Heart and Pericardium: The cardiac chambers are normal in size. No pericardial fluid orthickening is present. Mediastinum and Maxine: No mediastinal hemorrhage is present. No enlarged lymph nodes arepresent. Thoracic Vasculature: No vascular abnormality is present. Abdomen/pelvis: Liver: Multiple subcentimeter hypoattenuating hepatic lesions are too small to characterize, but likely represent hepatic cysts. There is a focal hypoattenuation adjacent to the falciform ligament, likely representing focal fatty infiltration. Gallbladder and Bile Ducts: Normal. Spleen: Normal. Pancreas: Normal. Adrenals: Normal. Kidneys: Multiple subcentimeter hypoattenuating lesions in both kidneys are too small to characterize, but likely represent cysts. Otherwise, thebilateral kidneys enhance symmetrically. There is no evidence of hydronephrosis or nephrolithiasis. Gastrointestinal: The stomach is fluid-filled and moderately distended. The stomach and visualized loops of large and small bowel are otherwise unremarkable. Normal appendix. Mesentery/Peritoneum/Retroperitoneum: No free intraperitoneal air. No free fluid in the abdomen or pelvis.There is a implanted penile device, with the reservoir present within therectus abdominis muscle within the right lower quadrant of the abdomen. The reservoir device appears to be rotated internally. There is some penial erection noted. Bladder: Normal. Reproductive Organs: The prostate is normal. Abdominal Vasculature: Atherosclerotic calcification of the aorta and its branch vessels. Bones: Bone windows demonstrate no suspicious lytic or blastic lesions. The visible osseous structures are intact. Degenerative changes are seen inthe spine. Soft tissues: Normal. Impression: 1.No acute visceral, vascular, or osseus injury identified in the chest, abdomen, or pelvis. > Dictated by Guevara Banegas MD (president [employer]). I, Angelina Squires MD have personally reviewed and interpreted this examination/study. > Interpreting Provider: Angelina Squires MD on 24:10 PM Teo Steinberg MD CT ORDERABLES * CT LUMBAR SPINE WO CONTRAST - T/L-spine trauma, Spine fracture (07/19/2022 3:50 PM DATA ENTRY SUPERVISOR) Anatomical Region Laterality Modality Spine Computed Tomogra phy 07/19/2022 4:14 PM DATA ENTRY SUPERVISOR Impressions 07/19/2022 6:53 PM DATA ENTRY SUPERVISOR IMPRESSION: 1.No acute intracranial process. 2.No acute facial bone fractures identified. 3.No evidence of acute fracture in the cervical, thoracic, or lumbar spine. > Dictated by Larry Arce MD (advertising vice president) IGuevara MD have personally reviewed and interpreted this examination/study. > Interpreting Provider: Guevara Quintana MD on 07/19/2022 6:53 PM Narrative 07/19/2022 6:53 PM DATA ENTRY SUPERVISOR PROCEDURE: CT HEAD WO CONTRAST, CT FACIAL BONES WO CONTRAST, CT LUMBAR SPINE WO CONTRAST, CT THORACIC SPINE WO CONTRAST, CT CERVICAL SPINE WO CONTRAST, DATE/TIME OF EXAM: 07/19/2022 3:53 PM, LOCATION [facility] INDICATION: Trauma ADDITIONAL CLINICAL INFORMATION: Ordering Provider Reason For Exam: Trauma COMPARISON: None. TECHNIQUE: CT of the head, cervical spine, and maxillofacial bones, orbits, and paranasal sinuses was performed without contrast according to standard protocol. Reformatted axial, sagittal, and coronal images of the thoracic and lumbar spine were obtained by the technologist from a concurrently performed body CT and sent to the workstation for review. FINDINGS: Head: No acute intra- or extra-axial fluid collections are identified. The ventricles are of normal size, shape, and morphology. The basilar cisterns are patent. No mass effect or midline shift is seen. The lozada-white matter differentiation is normal. No acute calvarial fracture is identified. Maxillofacial: The orbits appear normal. There is mild paranasal sinus disease. The hard palate, mandible, and temporomandibular joints appear normal. No acute facial bone fractures are identified. There is a chronic left orbital floor fracture. The mastoid air cells are clear. There is mild soft tissue swelling in the left parietal and right frontal scalp. Chin laceration is noted. Cervical spine: Mild anterolisthesis of C2 on C3. Vertebral bodies are normal in height without evidence of acute fracture. Other than middle atlantoaxial joint osteoarthritis, the craniocervical junction appears normal. There is mild degenerative disc disease. No significant central canal stenosis is seen. There are varying degrees of mild facet osteoarthritis. The uncovertebral joints appear normal. No significant neural foraminal stenosis is seen. No soft tissue abnormality is identified. Thoracic spine: The alignment is normal. Vertebral bodies are normal in height without evidence of acute fracture. The intervertebral discs appear normal. No central canal stenosis is seen. The facets appear normal. No neural foraminal stenosis is seen. No soft tissue abnormality is identified. Lumbar spine: The alignment is normal. Vertebral bodies are normal in height without evidence of acute fracture. The intervertebral discs appear normal. No central canal stenosis is seen. The facets appear normal. No neural foraminal stenosis is seen. No soft tissue abnormality is identified. Implanted device seen between the L4 and L5 spinous processes. Procedure Note Guevara Quintana MD - 07/19/2022 PROCEDURE: CT HEAD WO CONTRAST, CT FACIAL BONES WO CONTRAST, CT LUMBAR SPINE WO CONTRAST, CT THORACIC SPINE WO CONTRAST, CT CERVICAL SPINE WO CONTRAST, DATE/TIME OF EXAM: 07/19/2022 3:53 PM, LOCATION [facility] INDICATION: Trauma ADDITIONAL CLINICAL INFORMATION: Ordering Provider Reason For Exam: Trauma COMPARISON: None. TECHNIQUE: CT of the head, cervical spine, and maxillofacial bones,orbits, and paranasal sinuses was performed without contrast according tostandard protocol. Reformatted axial, sagittal, and coronal images of thethoracic and lumbar spine were obtained by the technologist from a concurrently performed body CT and sent to the workstation for review. FINDINGS: Head: No acute intra- or extra-axial fluid collections are identified. The ventricles are of normal size, shape, and morphology. The basilarcisterns are patent. No mass effect or midline shift is seen. The lozada-whitematter differentiation is normal. No acute calvarial fracture is identified. Maxillofacial: The orbits appear normal. There is mild paranasal sinus disease. Thehard palate, mandible, and temporomandibular joints appear normal. No acute facial bone fractures are identified. There is a chronic left orbitalfloor fracture. The mastoid air cells are clear. There is mild soft tissue swelling in the left parietal and right frontal scalp. Chin lacerationis noted. Cervical spine: Mild anterolisthesis of C2 on C3. Vertebral bodies are normal in height without evidence of acute fracture. Other than middle atlantoaxial joint osteoarthritis, the craniocervical junction appears normal. There ismild degenerative disc disease. No significant central canal stenosis isseen. There are varying degrees of mild facet osteoarthritis. Theuncovertebral joints appear normal. No significant neural foraminal stenosis is seen.No soft tissue abnormality is identified. Thoracic spine: The alignment is normal. Vertebral bodies are normal in height without evidence of acute fracture. The intervertebral discs appear normal. No central canal stenosis is seen. The facets appear normal. No neural foraminal stenosis is seen. No soft tissue abnormality is identified. Lumbar spine: The alignment is normal. Vertebral bodies are normal in height without evidence of acute fracture. The intervertebral discs appear normal. No central canal stenosis is seen. The facets appear normal. No neural foraminal stenosis is seen. No soft tissue abnormality is identified. Implanted device seen between the L4 and L5 spinous processes. IMPRESSION: 1.No acute intracranial process. 2.No acute facial bone fractures identified. 3.No evidence of acute fracture in the cervical, thoracic, or lumbarspine. > Dictated by Larry Arce MD (advertising vice president) Guevara Melendez MD have personally reviewed and interpreted this examination/study. > Interpreting Provider: Guevara Quintana MD on 07/19/2022 6:53 PM Teo Steinberg MD CT ORDERABLES * CT THORACIC SPINE WO CONTRAST - T/L-spine trauma, spine fracture (07/19/2022 3:50 PM DATA ENTRY SUPERVISOR) Anatomical Region Laterality Modality Spine Computed Tomogra phy 07/19/2022 4:14 PM DATA ENTRY SUPERVISOR Impressions 07/19/2022 6:53 PM DATA ENTRY SUPERVISOR IMPRESSION: 1.No acute intracranial process. 2.No acute facial bone fractures identified. 3.No evidence of acute fracture in the cervical, thoracic, or lumbar spine. > Dictated by Larry Arce MD (advertising vice president) Guevara Melendez MD have personally reviewed and interpreted this examination/study. > Interpreting Provider: Guevara Quintana MD on 07/19/2022 6:53 PM Narrative 07/19/2022 6:53 PM DATA ENTRY SUPERVISOR PROCEDURE: CT HEAD WO CONTRAST, CT FACIAL BONES WO CONTRAST, CT LUMBAR SPINE WO CONTRAST, CT THORACIC SPINE WO CONTRAST, CT CERVICAL SPINE WO CONTRAST, DATE/TIME OF EXAM: 07/19/2022 3:53 PM, LOCATION [facility] INDICATION: Trauma ADDITIONAL CLINICAL INFORMATION: Ordering Provider Reason For Exam: Trauma COMPARISON: None. TECHNIQUE: CT of the head, cervical spine, and maxillofacial bones, orbits, and paranasal sinuses was performed without contrast according to standard protocol. Reformatted axial, sagittal, and coronal images of the thoracic and lumbar spine were obtained by the technologist from a concurrently performed body CT and sent to the workstation for review. FINDINGS: Head: No acute intra- or extra-axial fluid collections are identified. The ventricles are of normal size, shape, and morphology. The basilar cisterns are patent. No mass effect or midline shift is seen. The lozada-white matter differentiation is normal. No acute calvarial fracture is identified. Maxillofacial: The orbits appear normal. There is mild paranasal sinus disease. The hard palate, mandible, and temporomandibular joints appear normal. No acute facial bone fractures are identified. There is a chronic left orbital floor fracture. The mastoid air cells are clear. There is mild soft tissue swelling in the left parietal and right frontal scalp. Chin laceration is noted. Cervical spine: Mild anterolisthesis of C2 on C3. Vertebral bodies are normal in height without evidence of acute fracture. Other than middle atlantoaxial joint osteoarthritis, the craniocervical junction appears normal. There is mild degenerative disc disease. No significant central canal stenosis is seen. There are varying degrees of mild facet osteoarthritis. The uncovertebral joints appear normal. No significant neural foraminal stenosis is seen. No soft tissue abnormality is identified. Thoracic spine: The alignment is normal. Vertebral bodies are normal in height without evidence of acute fracture. The intervertebral discs appear normal. No central canal stenosis is seen. The facets appear normal. No neural foraminal stenosis is seen. No soft tissue abnormality is identified. Lumbar spine: The alignment is normal. Vertebral bodies are normal in height without evidence of acute fracture. The intervertebral discs appear normal. No central canal stenosis is seen. The facets appear normal. No neural foraminal stenosis is seen. No soft tissue abnormality is identified. Implanted device seen between the L4 and L5 spinous processes. Procedure Note Guevara Quintana MD - 07/19/2022 PROCEDURE: CT HEAD WO CONTRAST, CT FACIAL BONES WO CONTRAST, CT LUMBAR SPINE WO CONTRAST, CT THORACIC SPINE WO CONTRAST, CT CERVICAL SPINE WO CONTRAST, DATE/TIME OF EXAM: 07/19/2022 3:53 PM, LOCATION [facility] INDICATION: Trauma ADDITIONAL CLINICAL INFORMATION: Ordering Provider Reason For Exam: Trauma COMPARISON: None. TECHNIQUE: CT of the head, cervical spine, and maxillofacial bones,orbits, and paranasal sinuses was performed without contrast according tostandard protocol. Reformatted axial, sagittal, and coronal images of thethoracic and lumbar spine were obtained by the technologist from a concurrently performed body CT and sent to the workstation for review. FINDINGS: Head: No acute intra- or extra-axial fluid collections are identified. The ventricles are of normal size, shape, and morphology. The basilarcisterns are patent. No mass effect or midline shift is seen. The lozada-whitematter differentiation is normal. No acute calvarial fracture is identified. Maxillofacial: The orbits appear normal. There is mild paranasal sinus disease. Thehard palate, mandible, and temporomandibular joints appear normal. No acute facial bone fractures are identified. There is a chronic left orbitalfloor fracture. The mastoid air cells are clear. There is mild soft tissue swelling in the left parietal and right frontal scalp. Chin lacerationis noted. Cervical spine: Mild anterolisthesis of C2 on C3. Vertebral bodies are normal in height without evidence of acute fracture. Other than middle atlantoaxial joint osteoarthritis, the craniocervical junction appears normal. There ismild degenerative disc disease. No significant central canal stenosis isseen. There are varying degrees of mild facet osteoarthritis. Theuncovertebral joints appear normal. No significant neural foraminal stenosis is seen.No soft tissue abnormality is identified. Thoracic spine: The alignment is normal. Vertebral bodies are normal in height without evidence of acute fracture. The intervertebral discs appear normal. No central canal stenosis is seen. The facets appear normal. No neural foraminal stenosis is seen. No soft tissue abnormality is identified. Lumbar spine: The alignment is normal. Vertebral bodies are normal in height without evidence of acute fracture. The intervertebral discs appear normal. No central canal stenosis is seen. The facets appear normal. No neural foraminal stenosis is seen. No soft tissue abnormality is identified. Implanted device seen between the L4 and L5 spinous processes. IMPRESSION: 1.No acute intracranial process. 2.No acute facial bone fractures identified. 3.No evidence of acute fracture in the cervical, thoracic, or lumbarspine. > Dictated by Larry Arce MD (advertising vice president) IGuevara MD have personally reviewed and interpreted this examination/study. > Interpreting Provider: Guevara Quintana MD on 07/19/2022 6:53 PM Teo Steinberg MD CT ORDERABLES * CT CERVICAL SPINE WO CONTRAST - C-Spine Trauma, Spine fracture (07/19/2022 3:50 PM DATA ENTRY SUPERVISOR) Anatomical Region Laterality Modality Spine Computed Tomogra phy 07/19/2022 4:14 PM DATA ENTRY SUPERVISOR Impressions 07/19/2022 6:53 PM DATA ENTRY SUPERVISOR IMPRESSION: 1.No acute intracranial process. 2.No acute facial bone fractures identified. 3.No evidence of acute fracture in the cervical, thoracic, or lumbar spine. > Dictated by Larry Arce MD (advertising vice president) I, Guevara Quintana MD have personally reviewed and interpreted this examination/study. > Interpreting Provider: Guevara Quintana MD on 07/19/2022 6:53 PM Narrative 07/19/2022 6:53 PM DATA ENTRY SUPERVISOR PROCEDURE: CT HEAD WO CONTRAST, CT FACIAL BONES WO CONTRAST, CT LUMBAR SPINE WO CONTRAST, CT THORACIC SPINE WO CONTRAST, CT CERVICAL SPINE WO CONTRAST, DATE/TIME OF EXAM: 07/19/2022 3:53 PM, LOCATION [facility] INDICATION: Trauma ADDITIONAL CLINICAL INFORMATION: Ordering Provider Reason For Exam: Trauma COMPARISON: None. TECHNIQUE: CT of the head, cervical spine, and maxillofacial bones, orbits, and paranasal sinuses was performed without contrast according to standard protocol. Reformatted axial, sagittal, and coronal images of the thoracic and lumbar spine were obtained by the technologist from a concurrently performed body CT and sent to the workstation for review. FINDINGS: Head: No acute intra- or extra-axial fluid collections are identified. The ventricles are of normal size, shape, and morphology. The basilar cisterns are patent. No mass effect or midline shift is seen. The lozada-white matter differentiation is normal. No acute calvarial fracture is identified. Maxillofacial: The orbits appear normal. There is mild paranasal sinus disease. The hard palate, mandible, and temporomandibular joints appear normal. No acute facial bone fractures are identified. There is a chronic left orbital floor fracture. The mastoid air cells are clear. There is mild soft tissue swelling in the left parietal and right frontal scalp. Chin laceration is noted. Cervical spine: Mild anterolisthesis of C2 on C3. Vertebral bodies are normal in height without evidence of acute fracture. Other than middle atlantoaxial joint osteoarthritis, the craniocervical junction appears normal. There is mild degenerative disc disease. No significant central canal stenosis is seen. There are varying degrees of mild facet osteoarthritis. The uncovertebral joints appear normal. No significant neural foraminal stenosis is seen. No soft tissue abnormality is identified. Thoracic spine: The alignment is normal. Vertebral bodies are normal in height without evidence of acute fracture. The intervertebral discs appear normal. No central canal stenosis is seen. The facets appear normal. No neural foraminal stenosis is seen. No soft tissue abnormality is identified. Lumbar spine: The alignment is normal. Vertebral bodies are normal in height without evidence of acute fracture. The intervertebral discs appear normal. No central canal stenosis is seen. The facets appear normal. No neural foraminal stenosis is seen. No soft tissue abnormality is identified. Implanted device seen between the L4 and L5 spinous processes. Procedure Note Guevara Quintana MD - 07/19/2022 PROCEDURE: CT HEAD WO CONTRAST, CT FACIAL BONES WO CONTRAST, CT LUMBAR SPINE WO CONTRAST, CT THORACIC SPINE WO CONTRAST, CT CERVICAL SPINE WO CONTRAST, DATE/TIME OF EXAM: 07/19/2022 3:53 PM, LOCATION [facility] INDICATION: Trauma ADDITIONAL CLINICAL INFORMATION: Ordering Provider Reason For Exam: Trauma COMPARISON: None. TECHNIQUE: CT of the head, cervical spine, and maxillofacial bones,orbits, and paranasal sinuses was performed without contrast according tostandard protocol. Reformatted axial, sagittal, and coronal images of thethoracic and lumbar spine were obtained by the technologist from a concurrently performed body CT and sent to the workstation for review. FINDINGS: Head: No acute intra- or extra-axial fluid collections are identified. The ventricles are of normal size, shape, and morphology. The basilarcisterns are patent. No mass effect or midline shift is seen. The lozada-whitematter differentiation is normal. No acute calvarial fracture is identified. Maxillofacial: The orbits appear normal. There is mild paranasal sinus disease. Thehard palate, mandible, and temporomandibular joints appear normal. No acute facial bone fractures are identified. There is a chronic left orbitalfloor fracture. The mastoid air cells are clear. There is mild soft tissue swelling in the left parietal and right frontal scalp. Chin lacerationis noted. Cervical spine: Mild anterolisthesis of C2 on C3. Vertebral bodies are normal in height without evidence of acute fracture. Other than middle atlantoaxial joint osteoarthritis, the craniocervical junction appears normal. There ismild degenerative disc disease. No significant central canal stenosis isseen. There are varying degrees of mild facet osteoarthritis. Theuncovertebral joints appear normal. No significant neural foraminal stenosis is seen.No soft tissue abnormality is identified. Thoracic spine: The alignment is normal. Vertebral bodies are normal in height without evidence of acute fracture. The intervertebral discs appear normal. No central canal stenosis is seen. The facets appear normal. No neural foraminal stenosis is seen. No soft tissue abnormality is identified. Lumbar spine: The alignment is normal. Vertebral bodies are normal in height without evidence of acute fracture. The intervertebral discs appear normal. No central canal stenosis is seen. The facets appear normal. No neural foraminal stenosis is seen. No soft tissue abnormality is identified. Implanted device seen between the L4 and L5 spinous processes. IMPRESSION: 1.No acute intracranial process. 2.No acute facial bone fractures identified. 3.No evidence of acute fracture in the cervical, thoracic, or lumbarspine. > Dictated by Larry Arce MD (advertising vice president) Guevara Melendez MD have personally reviewed and interpreted this examination/study. > Interpreting Provider: Guevara Quintana MD on 07/19/2022 6:53 PM Teo Steinberg MD CT ORDERABLES * CT FACIAL BONES WO CONTRAST - Facial trauma, fx suspected, blunt (07/19/2022 3:50 PM DATA ENTRY SUPERVISOR) Anatomical Region Laterality Modality Head Computed Tomogra phy 07/19/2022 4:14 PM DATA ENTRY SUPERVISOR Impressions 07/19/2022 6:53 PM DATA ENTRY SUPERVISOR IMPRESSION: 1.No acute intracranial process. 2.No acute facial bone fractures identified. 3.No evidence of acute fracture in the cervical, thoracic, or lumbar spine. > Dictated by Larry Arce MD (advertising vice president) Guevara Melendez MD have personally reviewed and interpreted this examination/study. > Interpreting Provider: Guevara Quintana MD on 07/19/2022 6:53 PM Narrative 07/19/2022 6:53 PM DATA ENTRY SUPERVISOR PROCEDURE: CT HEAD WO CONTRAST, CT FACIAL BONES WO CONTRAST, CT LUMBAR SPINE WO CONTRAST, CT THORACIC SPINE WO CONTRAST, CT CERVICAL SPINE WO CONTRAST, DATE/TIME OF EXAM: 07/19/2022 3:53 PM, LOCATION [facility] INDICATION: Trauma ADDITIONAL CLINICAL INFORMATION: Ordering Provider Reason For Exam: Trauma COMPARISON: None. TECHNIQUE: CT of the head, cervical spine, and maxillofacial bones, orbits, and paranasal sinuses was performed without contrast according to standard protocol. Reformatted axial, sagittal, and coronal images of the thoracic and lumbar spine were obtained by the technologist from a concurrently performed body CT and sent to the workstation for review. FINDINGS: Head: No acute intra- or extra-axial fluid collections are identified. The ventricles are of normal size, shape, and morphology. The basilar cisterns are patent. No mass effect or midline shift is seen. The lozada-white matter differentiation is normal. No acute calvarial fracture is identified. Maxillofacial: The orbits appear normal. There is mild paranasal sinus disease. The hard palate, mandible, and temporomandibular joints appear normal. No acute facial bone fractures are identified. There is a chronic left orbital floor fracture. The mastoid air cells are clear. There is mild soft tissue swelling in the left parietal and right frontal scalp. Chin laceration is noted. Cervical spine: Mild anterolisthesis of C2 on C3. Vertebral bodies are normal in height without evidence of acute fracture. Other than middle atlantoaxial joint osteoarthritis, the craniocervical junction appears normal. There is mild degenerative disc disease. No significant central canal stenosis is seen. There are varying degrees of mild facet osteoarthritis. The uncovertebral joints appear normal. No significant neural foraminal stenosis is seen. No soft tissue abnormality is identified. Thoracic spine: The alignment is normal. Vertebral bodies are normal in height without evidence of acute fracture. The intervertebral discs appear normal. No central canal stenosis is seen. The facets appear normal. No neural foraminal stenosis is seen. No soft tissue abnormality is identified. Lumbar spine: The alignment is normal. Vertebral bodies are normal in height without evidence of acute fracture. The intervertebral discs appear normal. No central canal stenosis is seen. The facets appear normal. No neural foraminal stenosis is seen. No soft tissue abnormality is identified. Implanted device seen between the L4 and L5 spinous processes. Procedure Note Guevara Quintana MD - 07/19/2022 PROCEDURE: CT HEAD WO CONTRAST, CT FACIAL BONES WO CONTRAST, CT LUMBAR SPINE WO CONTRAST, CT THORACIC SPINE WO CONTRAST, CT CERVICAL SPINE WO CONTRAST, DATE/TIME OF EXAM: 07/19/2022 3:53 PM, LOCATION [facility] INDICATION: Trauma ADDITIONAL CLINICAL INFORMATION: Ordering Provider Reason For Exam: Trauma COMPARISON: None. TECHNIQUE: CT of the head, cervical spine, and maxillofacial bones,orbits, and paranasal sinuses was performed without contrast according tostandard protocol. Reformatted axial, sagittal, and coronal images of thethoracic and lumbar spine were obtained by the technologist from a concurrently performed body CT and sent to the workstation for review. FINDINGS: Head: No acute intra- or extra-axial fluid collections are identified. The ventricles are of normal size, shape, and morphology. The basilarcisterns are patent. No mass effect or midline shift is seen. The lozada-whitematter differentiation is normal. No acute calvarial fracture is identified. Maxillofacial: The orbits appear normal. There is mild paranasal sinus disease. Thehard palate, mandible, and temporomandibular joints appear normal. No acute facial bone fractures are identified. There is a chronic left orbitalfloor fracture. The mastoid air cells are clear. There is mild soft tissue swelling in the left parietal and right frontal scalp. Chin lacerationis noted. Cervical spine: Mild anterolisthesis of C2 on C3. Vertebral bodies are normal in height without evidence of acute fracture. Other than middle atlantoaxial joint osteoarthritis, the craniocervical junction appears normal. There ismild degenerative disc disease. No significant central canal stenosis isseen. There are varying degrees of mild facet osteoarthritis. Theuncovertebral joints appear normal. No significant neural foraminal stenosis is seen.No soft tissue abnormality is identified. Thoracic spine: The alignment is normal. Vertebral bodies are normal in height without evidence of acute fracture. The intervertebral discs appear normal. No central canal stenosis is seen. The facets appear normal. No neural foraminal stenosis is seen. No soft tissue abnormality is identified. Lumbar spine: The alignment is normal. Vertebral bodies are normal in height without evidence of acute fracture. The intervertebral discs appear normal. No central canal stenosis is seen. The facets appear normal. No neural foraminal stenosis is seen. No soft tissue abnormality is identified. Implanted device seen between the L4 and L5 spinous processes. IMPRESSION: 1.No acute intracranial process. 2.No acute facial bone fractures identified. 3.No evidence of acute fracture in the cervical, thoracic, or lumbarspine. > Dictated by Larry Arce MD (advertising vice president) Guevara Melendez MD have personally reviewed and interpreted this examination/study. > Interpreting Provider: Guevara Quintana MD on 07/19/2022 6:53 PM Teo Steinberg MD CT ORDERABLES * CT HEAD WO CONTRAST - Head Trauma, CSF leak, mental status changes (07/19/2022 3:50 PM DATA ENTRY SUPERVISOR) Anatomical Region Laterality Modality Head Computed Tomogra phy 07/19/2022 4:14 PM DATA ENTRY SUPERVISOR Impressions 07/19/2022 6:53 PM DATA ENTRY SUPERVISOR IMPRESSION: 1.No acute intracranial process. 2.No acute facial bone fractures identified. 3.No evidence of acute fracture in the cervical, thoracic, or lumbar spine. > Dictated by Larry Arce MD (advertising vice president) Guevara Melendez MD have personally reviewed and interpreted this examination/study. > Interpreting Provider: Guevara Quintana MD on 07/19/2022 6:53 PM Narrative 07/19/2022 6:53 PM DATA ENTRY SUPERVISOR PROCEDURE: CT HEAD WO CONTRAST, CT FACIAL BONES WO CONTRAST, CT LUMBAR SPINE WO CONTRAST, CT THORACIC SPINE WO CONTRAST, CT CERVICAL SPINE WO CONTRAST, DATE/TIME OF EXAM: 07/19/2022 3:53 PM, LOCATION [facility] INDICATION: Trauma ADDITIONAL CLINICAL INFORMATION: Ordering Provider Reason For Exam: Trauma COMPARISON: None. TECHNIQUE: CT of the head, cervical spine, and maxillofacial bones, orbits, and paranasal sinuses was performed without contrast according to standard protocol. Reformatted axial, sagittal, and coronal images of the thoracic and lumbar spine were obtained by the technologist from a concurrently performed body CT and sent to the workstation for review. FINDINGS: Head: No acute intra- or extra-axial fluid collections are identified. The ventricles are of normal size, shape, and morphology. The basilar cisterns are patent. No mass effect or midline shift is seen. The lozada-white matter differentiation is normal. No acute calvarial fracture is identified. Maxillofacial: The orbits appear normal. There is mild paranasal sinus disease. The hard palate, mandible, and temporomandibular joints appear normal. No acute facial bone fractures are identified. There is a chronic left orbital floor fracture. The mastoid air cells are clear. There is mild soft tissue swelling in the left parietal and right frontal scalp. Chin laceration is noted. Cervical spine: Mild anterolisthesis of C2 on C3. Vertebral bodies are normal in height without evidence of acute fracture. Other than middle atlantoaxial joint osteoarthritis, the craniocervical junction appears normal. There is mild degenerative disc disease. No significant central canal stenosis is seen. There are varying degrees of mild facet osteoarthritis. The uncovertebral joints appear normal. No significant neural foraminal stenosis is seen. No soft tissue abnormality is identified. Thoracic spine: The alignment is normal. Vertebral bodies are normal in height without evidence of acute fracture. The intervertebral discs appear normal. No central canal stenosis is seen. The facets appear normal. No neural foraminal stenosis is seen. No soft tissue abnormality is identified. Lumbar spine: The alignment is normal. Vertebral bodies are normal in height without evidence of acute fracture. The intervertebral discs appear normal. No central canal stenosis is seen. The facets appear normal. No neural foraminal stenosis is seen. No soft tissue abnormality is identified. Implanted device seen between the L4 and L5 spinous processes. Procedure Note Guevara Quintana MD - 07/19/2022 PROCEDURE: CT HEAD WO CONTRAST, CT FACIAL BONES WO CONTRAST, CT LUMBAR SPINE WO CONTRAST, CT THORACIC SPINE WO CONTRAST, CT CERVICAL SPINE WO CONTRAST, DATE/TIME OF EXAM: 07/19/2022 3:53 PM, LOCATION [facility] INDICATION: Trauma ADDITIONAL CLINICAL INFORMATION: Ordering Provider Reason For Exam: Trauma COMPARISON: None. TECHNIQUE: CT of the head, cervical spine, and maxillofacial bones,orbits, and paranasal sinuses was performed without contrast according tostandard protocol. Reformatted axial, sagittal, and coronal images of thethoracic and lumbar spine were obtained by the technologist from a concurrently performed body CT and sent to the workstation for review. FINDINGS: Head: No acute intra- or extra-axial fluid collections are identified. The ventricles are of normal size, shape, and morphology. The basilarcisterns are patent. No mass effect or midline shift is seen. The lozada-whitematter differentiation is normal. No acute calvarial fracture is identified. Maxillofacial: The orbits appear normal. There is mild paranasal sinus disease. Thehard palate, mandible, and temporomandibular joints appear normal. No acute facial bone fractures are identified. There is a chronic left orbitalfloor fracture. The mastoid air cells are clear. There is mild soft tissue swelling in the left parietal and right frontal scalp. Chin lacerationis noted. Cervical spine: Mild anterolisthesis of C2 on C3. Vertebral bodies are normal in height without evidence of acute fracture. Other than middle atlantoaxial joint osteoarthritis, the craniocervical junction appears normal. There ismild degenerative disc disease. No significant central canal stenosis isseen. There are varying degrees of mild facet osteoarthritis. Theuncovertebral joints appear normal. No significant neural foraminal stenosis is seen.No soft tissue abnormality is identified. Thoracic spine: The alignment is normal. Vertebral bodies are normal in height without evidence of acute fracture. The intervertebral discs appear normal. No central canal stenosis is seen. The facets appear normal. No neural foraminal stenosis is seen. No soft tissue abnormality is identified. Lumbar spine: The alignment is normal. Vertebral bodies are normal in height without evidence of acute fracture. The intervertebral discs appear normal. No central canal stenosis is seen. The facets appear normal. No neural foraminal stenosis is seen. No soft tissue abnormality is identified. Implanted device seen between the L4 and L5 spinous processes. IMPRESSION: 1.No acute intracranial process. 2.No acute facial bone fractures identified. 3.No evidence of acute fracture in the cervical, thoracic, or lumbarspine. > Dictated by Larry Arce MD (advertising vice president) I, Guevara Quintana MD have personally reviewed and interpreted this examination/study. > Interpreting Provider: Guevara Quintana MD on 07/19/2022 6:53 PM Teo Steinberg MD CT ORDERABLES * XR PELVIS 1 OR 2VW (07/19/2022 3:25 PM DATA ENTRY SUPERVISOR) Anatomical Region Laterality Modality Pelvis Radiographic Ana ging 07/19/2022 5:00 PM DATA ENTRY SUPERVISOR Impressions 07/19/2022 5:18 PM DATA ENTRY SUPERVISOR IMPRESSION: No acute fracture identified. Report dictated by Larry Arce MD (president college or [employer]). Angelina Melendez MD have personally reviewed and interpreted this examination/study. > Interpreting Provider: Angelina Squires MD on 07/19/2022 5:18 PM Narrative 07/19/2022 5:18 PM DATA ENTRY SUPERVISOR PROCEDURE: XR PELVIS 1 OR 2VW, DATE/TIME OF EXAM: 07/19/2022 3:25 PM, LOCATION [facility] INDICATION: Trauma Fracture suspected COMPARISON: CT chest abdomen pelvis from the same day. FINDINGS: Redemonstrated implanted penile device. No acute fracture is identified. The femoral heads appear well-seated within their respective acetabula. The pubic symphysis is intact. Bone density and texture are normal. The sacroiliac joints are normal. Procedure Note Angelina Squires MD - 07/19/2022 PROCEDURE: XR PELVIS 1 OR 2VW, DATE/TIME OF EXAM: 07/19/2022 3:25 PM, LOCATION [facility] INDICATION: Trauma Fracture suspected COMPARISON: CT chest abdomen pelvis from the same day. FINDINGS: Redemonstrated implanted penile device. No acute fracture is identified. The femoral heads appear well-seated within their respective acetabula.The pubic symphysis is intact. Bone density and texture are normal. The sacroiliac joints are normal. IMPRESSION: No acute fracture identified. Report dictated by Larry Arce MD (president college or [employer]). Angelina Melendez MD have personally reviewed and interpreted this examination/study. > Interpreting Provider: Angelina Squires MD on 25:18 PM Teo Steinberg MD DIAGNOSTIC IMAGING ORDERABLES * XR CHEST 1VW PORTABLE (07/19/2022 3:25 PM DATA ENTRY SUPERVISOR) Anatomical Region Laterality Modality Chest Radiographic Ana ging 07/19/2022 3:26 PM DATA ENTRY SUPERVISOR Narrative 07/19/2022 4:01 PM DATA ENTRY SUPERVISOR PROCEDURE: XR CHEST 1VW PORTABLE, DATE/TIME OF EXAM: 07/19/2022 3:25 PM, LOCATION [facility] INDICATION: Trauma ADDITIONAL CLINICAL INFORMATION: Ordering Provider Reason For Exam: Trauma COMPARISON: 07/07/2011. FINDINGS/IMPRESSION: There is no focal consolidation, pleural effusion, or pneumothorax. The cardiomediastinal silhouette is normal. The visible bony thorax is intact. Report dictated by Louis Pascal DO (president college or [employer]). Shelley Melendez MD have personally reviewed and interpreted this examination/study. > Interpreting Provider: Shelley Cassidy MD on 07/19/2022 4:01 PM Procedure Note Shelley Cassidy MD - 07/19/2022 PROCEDURE: XR CHEST 1VW PORTABLE, DATE/TIME OF EXAM: 07/19/2022 3:25PM, LOCATION [facility] INDICATION: Trauma ADDITIONAL CLINICAL INFORMATION: Ordering Provider Reason For Exam: Trauma COMPARISON: 07/07/2011. FINDINGS/IMPRESSION: There is no focal consolidation, pleural effusion, or pneumothorax. The cardiomediastinal silhouette is normal. The visible bony thorax isintact. Report dictated by Louis Pascal DO (president college or [employer]). Shelley Melendez MD have personally reviewed and interpreted this examination/study. > Interpreting Provider: Shelley Cassidy MD on 07/19/2022 4:01 PM Teo Steinberg MD DIAGNOSTIC IMAGING ORDERABLES * PTT [facility] (07/19/2022 3:18 PM DATA ENTRY SUPERVISOR) APTT 25.7 23.0 - 38.4 Seconds 07/19/2022 4:00 PM DATA ENTRY SUPERVISOR [facility] Comment:Suggested therapeuti c range for full dose I.V. unfractionated heparin therapy for venous thromboembolism is 71 to 109 seconds. Blood BLOOD SPECIMEN / Unknown Venipuncture / Unknown 07/19/2022 3:18 PM DATA ENTRY SUPERVISOR 07/19/2022 3:36 PM DATA ENTRY SUPERVISOR Teo Steinberg MD LAB - COAGULATION O RDERABLES [facility] [address] [place] [address], [facility] [phone] * (ABNORMAL) PT-INR [facility] (07/19/2022 3:18 PM DATA ENTRY SUPERVISOR) Pathologist [facility] PT 11.1(L) 12.1 - 14.8 Seconds 07/19/2022 3:59 PM DATA ENTRY SUPERVISOR [facility] INR 0.8 See Comment 07/19/2022 3:59 PM DATA ENTRY SUPERVISOR [facility] Comment:The suggested therap eutic range for standard coumadin (warfarin) therapy is an INR of 2.0-3.0. For high-risk patients (Mechanical Mitral Valve Prosthesis, etc.), the suggested prophylactic therapeutic range is an INR of 2.5-3.5. Blood BLOOD SPECIMEN / Unknown Venipuncture / Unknown 07/19/2022 3:18 PM DATA ENTRY SUPERVISOR 07/19/2022 3:36 PM DATA ENTRY SUPERVISOR Teo Steinberg MD LAB - COAGULATION O RDERABLES Performing Organization Address [facility]/ZIP Co de Phone Number [facility] [address] [place] [address], [facility] [phone] * TYPE + SCREEN PANEL (07/19/2022 3:18 PM DATA ENTRY SUPERVISOR) [facility] Antibody Screen NEG 4:21 PM DATA ENTRY SUPERVISOR [facility] ABO Rh A POS 07/19/2022 4:21 PM DATA ENTRY SUPERVISOR [facility] Blood Bank BLOOD SPECIMEN / Unknown Venipuncture / Unknown 07/19/2022 3:18 PM DATA ENTRY SUPERVISOR 07/19/2022 3:38 PM DATA ENTRY SUPERVISOR Teo Steinberg MD LAB - BLOOD BANK OR DERABLES Performing Organization Address [facility]/ZIP Co de Phone Number [facility] [address] [place] [address], [facility] [phone] * (ABNORMAL) CBC W AUTO DIFFERENTIAL (07/19/2022 3:18 PM DATA ENTRY SUPERVISOR) [facility] WBC 7.1 3.5 - 10.5 10 3/uL 07/19/2022 3:40 PM [facility] RBC 4.66 4.30 - 5.70 10 6/uL 07/19/2022 3:40 PM [facility] Hemoglobin 12.9 12.0 - 17.6 g/dL 07/19/2022 3:40 PM [facility] Hematocrit 40.1 35.2 - 51.7 % 07/19/2022 3:40 PM [facility] MCV 86.1 80.7 - 98.3 fL 07/19/2022 3:40 PM [facility] MCH 27.7 26.7 - 34.0 pg 07/19/2022 3:40 PM [facility] MCHC 32.2 30.8 - 35.9 g/dL 07/19/2022 3:40 PM [facility] RDW-SD 49.6 36.0 - 50.0 fL 07/19/2022 3:40 PM [facility] RDW-CV 15.8(H) 11.2 - 14.8 % 07/19/2022 3:40 PM [facility] Platelet Count 184 150 - 400 10 3/uL 07/19/2022 3:40 PM [facility] MPV 10.6 9.4 - 12.9 fL 07/19/2022 3:40 PM [facility] nRBC Absolute 0.00 0 10 3/uL 07/19/2022 3:40 PM [facility] nRBC Auto 0.0 0 /100 WBC 07/19/2022 3:40 PM [facility] Neutrophils % 55.5 35.0 - 70.0 % 07/19/2022 3:40 PM [facility] Lymphocytes % 38.6 20.0 - 43.0 % 07/19/2022 3:40 PM [facility] Monocytes % 4.7(L) 5.0 - 13.0 % 07/19/2022 3:40 PM [facility] Eosinophils % 0.8 0.0 - 6.0 % 07/19/2022 3:40 PM [facility] Basophil % 0.1 0.0 - 2.0 % 07/19/2022 3:40 PM [facility] Neutrophils Absolute 3.92 1.60 - 7.00 10 3/uL 07/19/2022 3:40 PM [facility] Lymphocyte Absolute 2.73 1.10 - 3.90 10 3/uL 07/19/2022 3:40 PM [facility] Monocytes Absolute 0.33 0.26 - 1.07 10 3/uL 07/19/2022 3:40 PM [facility] Eosinophils Absolute 0.06 0.00 - 0.47 10 3/uL 07/19/2022 3:40 PM [facility] Basophils Absolute 0.01 0.00 - 0.08 10 3/uL 07/19/2022 3:40 PM [facility] Immature Granulocytes % 0.3 0.0 - 1.0 % 07/19/2022 3:40 PM [facility] Immature Granulocytes Absolute 0.02 07/19/2022 3:40 PM [facility] Blood BLOOD SPECIMEN / Unknown Venipuncture / Unknown 07/19/2022 3:18 PM DATA ENTRY SUPERVISOR 07/19/2022 3:36 PM DATA ENTRY SUPERVISOR Teo Steinberg MD LAB - HEMATOLOGY OR DERABLES Performing Organization Address City/State/[facility] Co de Phone Number [facility] [address] [place] [address], [facility] [phone] * (ABNORMAL) BASIC METABOLIC PANEL (CALCIUM TOTAL) (07/19/2022 3:18 PM DATA ENTRY SUPERVISOR) BUN 13 7 - 26 mg/dL 07/19/2022 4:04 PM [facility] Creatinine 1.17(H) 0.71 - 1.16 mg/dL 07/19/2022 4:04 PM [facility] Sodium 140 136 - 145 mmol/L 07/19/2022 4:04 PM [facility] Potassium 3.9 3.5 - 4.5 mmol/L 07/19/2022 4:04 PM [facility] Chloride 108(H) 98 - 107 mmol/L 07/19/2022 4:04 PM [facility] CO2 23 22 - 29 mmol/L 07/19/2022 4:04 PM [facility] Glucose 95 70 - 115 mg/dL 07/19/2022 4:04 PM [facility] Calcium 9.1 8.4 - 10.2 mg/dL 07/19/2022 4:04 PM [facility] Anion Gap 13 8 - 18 07/19/2022 4:04 PM [facility] BUN/Creatinine Ratio 11 7 - 23 07/19/2022 4:04 PM [facility] Osmolality Calculated 290 270 - 300 mOsm/kg 07/19/2022 4:04 PM [facility] eGFR by CKD-EPI 70(L) >=90 mL/min/1.7 3 m2 07/19/2022 4:04 PM [facility] Blood BLOOD SPECIMEN / Unknown Venipuncture / Unknown 07/19/2022 3:18 PM DATA ENTRY SUPERVISOR 07/19/2022 3:36 PM [facility] Teo Steinberg MD LAB - CHEMISTRY ORD ERABLES [address] [address], [facility] [phone] * ALCOHOL ETHYL BLOOD (07/19/2022 3:18 PM DATA ENTRY SUPERVISOR) Ethanol (mg/dL) <10 <10 mg/dL 4:04 PM [facility] Ethanol Calculated (g/dL) <0.010 <=0.010 g/dL 07/19/2022 4:04 PM [facility] Blood BLOOD SPECIMEN / Unknown Venipuncture / Unknown 07/19/2022 3:18 PM DATA ENTRY SUPERVISOR 07/19/2022 3:36 PM [facility] - 07/19/2022 4:04 PM [facility] Ethanol Interp <10: None Detected. Depression of [employer]UCK [employer]: >100 mg/dl Potentially Critical: >250 mg/dl Potentially Fatal >400 mg/dl Ethanol in the patient's blood will contribute to the osmolar gap. Ethanol's contribution to the osmolar gap can be estimated by dividing the concentration of ethanol in mg/dL by 4.6. This test is for clinical use only and does not equal a ROD for legal purposes. Teo Steinberg MD LAB - CHEMISTRY ORD ERABLES [facility] [address] [place] [address], [facility] [phone] * PROSTATE SPECIFIC ANTIGEN SCREEN (08/31/2016 11:35 AM DATA ENTRY SUPERVISOR) Only the most recent of2 resultswithin the time period is included. PSA Total 0.6 < OR = 4.0 ng/mL [facility] Comment: This test was performed using the Siemens chemiluminescent method. Values obtained from different assay methods cannot be used interchangeably. PSA levels, regardless of value, should not be interpreted as absolute evidence of the presence or absence of disease. REPORT COMMENT: PLEASE FAX RESULTS TO [phone]! Test Performed at: [facility] [address] [place] [address] DEMARCO BEYER DO,MPH Venous blood specimen (specimen) 08/31/2016 11:35 AM DATA ENTRY SUPERVISOR 08/31/2016 11:36 AM DATA ENTRY SUPERVISOR Narrative [facility]) - 09/01/2016 6:00 AM DATA ENTRY SUPERVISOR PLEASE FAX RESULTS TO [phone]! Giuseppe Norton MD LAB - CHEMIS TRY ORDERABLES Performing Organization Address City/[facility]/ZIP Co de Phone Number [facility]) * URINALYSIS AUTO - POINT OF CARE (AMB) [facility] (08/23/2016 1:56 PM DATA ENTRY SUPERVISOR) Only the most recent of4 resultswithin the time period is included. Glucose UA neg [facility] Bilirubin UA POCT neg [facility] Ketones UA POCT neg [facility] Specific [place] UA 1.030 [facility] Blood Urine POCT neg [facility] pH UA 6.0 [facility] Protein UA neg [facility] Urobilinogen UA 3.5 [facility] Nitrite UA neg [facility] WBC UA neg [facility] Urine specimen (specimen) 08/23/2016 1:56 PM DATA ENTRY SUPERVISOR Giuseppe Norton MD LAB - POINT OF CARE ORDERABLES [facility] * URINALYSIS - POINT OF CARE (AMB) [facility] (09/01/2015) Glucose UA NEG [facility] Bilirubin UA POCT NEG [facility] Ketones UA POCT 0.5 [facility] Specific [place] UA 1.030 [facility] Blood Urine POCT NEG [facility] pH UA 5.5 [facility] Protein UA NEG [facility] Urobilinogen UA 3.5 [facility] Nitrite UA NEG [facility] WBC UA NEG [facility] Urine specimen (specimen) 09/01/2015 Giuseppe Norton MD LAB - POINT OF CARE ORDERABLES [facility] * PATHOLOGY REPORTS - [facility] HISTORICAL (01/05/2010 6:54 AM CDT) 01/05/2010 6:54 AM CDT Narrative [facility] - 01/05/2010 6:54 AM CDT Ean Conway MD LAB - PATHOLOGY/CYTO LOGY ORDERABLES [facility] Care Teams Zoology Teacher Relationship Specialty Start Date End Date Paul Rene MD [address] [place] [address] PCP - General 07/01/22
--- OUTSIDE RECORDS SUMMARY | 2024-10-25 12:25 | XMS_ITS | Clinical Summary ---
Author Organization [facility] [employer] Address [address] [place] [address] Care Team Providers Care Life Underwriter Name Role Phone Paul Rene MD Primary Care Provider Source Comments [facility] [employer],non-owned Affiliates and Associated Physician Practices is amultiple site organization consisting of ambulatory clinics and hospital sitesin [place], [place], [place] and [place]. This disclosure is being madepursuant to the Care Everywhere program and may not contain all information available regarding this patient. Last updated 18.[facility] [employer] Allergies Active Allergy Reactions Criticality Noted Date [...] Comments Blood Pressure 145/82 07/21/2022 12:24 PM DANCING MASTER Pulse 50 07/21/2022 12:24 PM DANCING MASTER Temperature 36.4 C (97.6 F) 07/21/2022 12:24 PM DANCING MASTER Respiratory Rate 18 07/21/2022 12:2 4 PM DANCING MASTER Oxygen Saturation 91% 07/21/2022 12: 24 PM DANCING MASTER Inhaled Oxygen Concentration - - Weight 86.1 kg (189 lb 13.1 oz) 07/20/2022 8:44 PM DANCING MASTER Height 173.5 cm (5' 8.31 ) 07/20/2022 8:44 PM CS T Body Mass Index 28.6 07/20/2022 8:44 PM DANCING MASTER Plan of Treatment Health Maintenance Due Date Last Done Comments COLOGUARD (AGES 45-75) - COL ON CA SCREENING 1960 COLON MONITORING 1960 COLONOSCOPY - COLON CA SCREENING 1960 CT COLONOGRAPHY - COLON CA SCREENING 1960 Colorectal Cancer Screening 1960 FIT - COLON CA SCREENING 1960 FLEX SIG - COLON CA SCREENING 1960 LIPID TESTING 1960 HIV SCREENING 01/10/1975 HEPATITIS C SCREENING 01/06/1978 PNEUMOCOCCAL VACCINE 50+ (1 of 2 - PCV) 01/10/1979 PNEUMOCOCCAL VACCINE (1 of 2 - PCV) 01/10/1979 ZOSTER VACCINE (1 of 2) 01/10/2010 COVID-19 VACCINE (2 - 2023-2 5 season) 2024 11/14/2020 INFLUENZA VACCINE (#1) 2024 0, 08/13/2014 DEPRESSION SCREENING 09/12/2024 SCREENING FOR DIABETES 07/19/2025 07/19/2022 DTAP/TDAP/TD VACCINES (2 - T d or Tdap) 07/19/2032 07/19/2022 Respiratory Syncytial Virus (RSV) Vaccine Pt: or over 60 yrs (1 - 1-dose 75+ series) 01/10/2035 HEPATITIS B VACCINE Aged Out No longe r eligible based on patient's age to complete this topic HIB VACCINE Aged Out No longer eligi ble based on patient's age to complete this topic HPV VACCINE Aged Out No longer eligi ble based on patient's age to complete this topic MENINGOCOCCAL (Group B) VACCINE Aged Out No longer eligible b ased on patient's age to complete this topic MENINGOCOCCAL VACCINE Aged Out No christy brenda eligible based on patient's age to complete this topic Procedures Procedure Name Priority Date/Time Associated Diagnosis Comments BASIC METABOLIC PANEL (CALCIUM TOTAL) STAT 07/19/2022 3:18 PM DANCING MASTER from Last 3 Months or Most Recently Relevant to Health Maintenance Results * (ABNORMAL) BASIC METABOLIC PANEL (CALCIUM TOTAL) (07/19/2022 3:18 PM DANCING MASTER) BUN 13 7 - 26 mg/dL 07/19/2022 4:04 PM [facility] Creatinine 1.17(H) 0.71 - 1.16 mg/dL 07/19/2022 4:04 PM [facility] Sodium 140 136 - 145 mmol/L 07/19/2022 4:04 PM [facility] Potassium 3.9 3.5 - 4.5 mmol/L 07/19/2022 4:04 PM [facility] Chloride 108(H) 98 - 107 mmol/L 07/19/2022 4:04 PM [facility] CO2 23 22 - 29 mmol/L 07/19/2022 4:04 PM [facility] Glucose 95 70 - 115 mg/dL 07/19/2022 4:04 PM [facility] Calcium 9.1 8.4 - 10.2 mg/dL 07/19/2022 4:04 PM [facility] Anion Gap 13 8 - 18 07/19/2022 4:04 PM [facility] BUN/Creatinine Ratio 11 07/19/2022 4:04 PM [facility] Osmolality Calculated 290 270 - 300 mOsm/kg 07/19/2022 4:04 PM [facility] eGFR by CKD-EPI 70(L) >=90 mL/min/1.7 3 m2 07/19/2022 4:04 PM [facility] Blood BLOOD SPECIMEN / Unknown Venipuncture / Unknown 07/19/2022 3:18 PM DANCING MASTER 07/19/2022 3:36 PM [facility] Teo Steinberg MD LAB - CHEMISTRY ORD ERABLES [facility] [address] [place] [address], [facility] [phone] from Last 3 Months or Most Recently Relevant to Health Maintenance Advance Directives * Full Code (Latest Code Status on File) Date Activated Date Inactivated Comments 07/20/2022 12:23 AM 07/21/2022 6:10 PM Care Teams Life Underwriter Relationship Specialty Start Date End Date Paul Rene MD [address] [place] [address] PCP - General 07/01/22
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
--- OUTSIDE RECORDS SUMMARY | 2024-10-25 12:25 | XMS_ITS | Continuity of Care Document ---
Author Organization [facility] Address [address] [place] [address] [address] [place] [address] Phone Care Team Providers Care Core Laying Machine Operator Name Role Phone Louann Hernandez Unavailable Unavailable Procedures Procedure Date Eye Exam & Treatment Refraction Advance Directives Directive Yes / No Effective Date File Name No Information Encounters Encounter Description Practice Location Reason(s) For Visit Diagnoses Date Provider Providers Copied on Encounter [facility], [address] [place] [address] [address], [place], [place], [address], [place] tel:[phone] [facility] No Information [address] Mary Lew. [address] , [address], [place], [address], [place]. tel:[phone] Family History Family Member Type Diagnosis Age At Onset No Information Payers Payer name Insurance type Covered republican ID Authoriza tion(s) [employer] SOI [id number] Social History Type Description Quantity Date Captured Comments Sex Male Smoking Status No Information Chief Complaint And Reason For Visit No Information Reason For Referral Reason For Referral No Information History Of Present Illness Encounter Date Complaint History Of Prese nt Illness No Information Functional Status Date Functional Assessmen t No Information Instructions Date Instruction Additional Infor mation No Information Assessments Type Assessment Date No Information Patient Care Teams Name Effective Dates (start - stop) Status Members No Information
--- OUTSIDE RECORDS SUMMARY | 2024-10-25 12:25 | XMS_ITS | Clinical Summary ---
Author Organization [facility] Address [address] [place] [address] Care Team Providers Care Applied Computer Science Professor Name Role Phone Mark Scott MD Primary Care Provider [phone]- [phone] Allergies Active Allergy Reactions Criticality Noted Date [...] 03/27/2024 Assessment & Plan (08/08/2024 3:04 PM VP PRODUCT): Continue Trelegy Ellipta 200 daily He has [...] is currently in physical therapy, I recommend [place] after this is completed and he is released from his surgeon We have discussed that a return to his previous line of work will be unlikely Recheck PFT and walk testing Cigarette nicotine dependence without complicati on 03/27/2024 Assessment & Plan (08/08/2024 3:04 PM VP PRODUCT): He continues to smoke 1/2 to 3/4 pack cigarettes per day - Smoking cessation counseling and techniques reviewed at length - Avoid triggers and use distraction techniques - He is aware of the [place] Tobacco Quit line: 2-808-YSWN-YES for free services - 5 minutes spent [...] techniques - He is aware of the [place] Tobacco Quit line: 1-228-JVJV-YES for free services - 4 minutes spent discussing cessation He has nicotine patches at home He is due for annual lung cancer screening in December of 2024 Assessment & Plan (03/27/2024 11:43 AM CDT): - Smoking cessation counseling and techniques reviewed at length - Avoid triggers and use distraction techniques - Participate in support groups - Information given regarding [place] Tobacco Quit line: 7-791-JDDH-YES for free services - 4 minutes spent discussing cessation Continue nicotine patches, order sent today Annual LDCT due 12/2024 Dyspnea 02/22/2024 Encounters Date Type Department Care Team Description 09/20/2024 Orders Only [facility] [address] [place] [address] Unknown, Notinfile 08/08/2024 1:30 PM VP PRODUCT Office Visit [facility] Pulmonary at [address] [place] [phone] Lisa Garcia NP Centrilobular emphysema (HCC) (Primary Dx); Cigarette nicotine dependence without complication from Last 3 Months Surgical History Surgery Date Site/Laterality Comments FOOT FRACTURE SURGERY Left WRIST FRACTURE SURGERY Right SKIN CANCER EXCISION back Medical History Medical History Date Comments COPD (chronic obstructive pulmonary disease) (HC C) Tobacco abuse Skin cancer Erectile dysfunction Asthma Hypertension Family History Medical History Relation Name Comments Arthritis Mother Relation Name Status Comments Mother Social History Tobacco Use Types Packs/Day Years [...] on file Legal Sex Male 11:08 AM VP PRODUCT Gender Identity Not on file Sexual Orientation Not on file Obstetrics History Last Filed Vital Signs Vital Sign Reading Time Taken Comments Blood Pressure 130/76 08/08/2024 1:38 PM VP PRODUCT Pulse 93 08/08/2024 1:38 PM VP PRODUCT Temperature 36.5 C (97.7 F) 08/08/2024 1:38 PM VP PRODUCT Respiratory Rate 18 03/06/2024 10:12 AM CDT Oxygen Saturation 94% 08/08/2024 1:38 PM VP PRODUCT Inhaled Oxygen Concentration - - Weight 91.7 kg (202 lb 1.6 oz) 08/08/2024 1:38 P M VP PRODUCT Height 175.3 cm (5' 9 ) 08/08/2024 1:38 PM VP PRODUCT Body Mass Index 29.84 08/08/2024 1:38 PM VP PRODUCT Plan of Treatment Health Maintenance Due Date Last Done Comments Colon Cancer Screening-Colonoscopy 1960 Depression Screening 1960 Hepatitis C Screening 1960 Prostate Cancer Screening-PSA 1960 Hepatitis B Screening 01/10/1978 Regular Well Visit/Exam 18-64 01/10/1978 Lung Cancer Screening 01/10/2010 Covid-19 Vaccine ( - season) 05/13/202401/2021 Influenza Vaccine (#1) 2024 , 06/23/2020, 08/13/2014 DTaP/Tdap/Td Vaccine (2 - Td or Tdap) 07/19/203203/2022 Pneumococcal vaccine <65 Completed 07/05/2023 Zoster Vaccine Completed 09/14/2023, 07/05/2023 Medical Devices Implanted Type Area Roll Panner Device Identifier Shelf Expiration Date Model / Serial / Lot Coloplast Macy [id number] Titan Lock-Out Inflatable Self Contain Fluid Fill Tube Standard Latex Free - Sn/A - [id number] Implanted:Qty: 1 on 11/10/2018 by Rick Gil MD at [facility] Other - see comments N/A: Penis Coloplast Macy 07/11/2023 [id number] / N/A / [id number] Description:Assembly Kit Following select items implanted: Connectors Rear tip extenders Coloplast Macy [id number] Titan Coloplast Lock-Out Inflatable Self Contain Fluid Fill Valve Latex Free - Sn/A - [id number] Implanted:Qty: 1 on 11/10/2018 by Rick Gil MD at [facility] Other - see comments Right: Abdomen Coloplast Macy 08/17/2023 [id number] / N/A / [id number] Description:[place] Coloplast Macy [id number] Titan Coloplast Lock-Out 18cm Pump Set Inflatable Fluid Fill Soft Latex Free - Sn/A - [id number] Implanted:Qty: 1 on 11/10/2018 by Rick Gil MD at [facility] Other - see comments Right: Penis Coloplast Macy 02/13/2023 [id number] / N/A / [id number] Cordis Mynxgrip 5fr Balloon Catheter Integrate Sealant Lock Latex Free [id number] - [id number] Implanted:Qty: 1 on 03/06/2024 by Mat Byrne MD at [facility] 01/18/2026 [id number] / / [id number] Procedures Procedure Name Priority Date/Time Associated Diagnosis Comments SURGICAL PATHOLOGY Routine 09/20/2024 12 :00 AM VP PRODUCT from Last 3 Months Results * Surgical pathology (09/20/2024 12:00 AM VP PRODUCT) Skin, excision 09/20/2024 09/21/2024 8:35 AM VP PRODUCT Narrative 09/25/2024 1:05 PM VP PRODUCT EPIC results best viewed via link to PDF [facility], [address], [place] [address] [email or web address] Note to Patients: This report may contain [...] 09/21/2024 REPORTED: 09/25/2024 Submitting Physician Information: Zamzam Plunkett, [facility] Skin [facility], [address] [place] [address], DERMATOPATHOLOGY REPORT RESULTS DIAGNOSIS: SKIN, STERNUM, EXCISION: SCAR FROM A PREVIOUS PROCEDURE Note: There is no evidence of malignancy. There is an incidental dermal melanocytic nevus. exr/lac By this signature, I attest that the above diagnosis is based upon my personal examination of the slides(and/or other material indicated in the diagnosis). Jackie Paris M.D. Report Electronically Reviewed and Signed [...] ICD-9 A; ZSD.808 ZSD.1387 Clerical Data A; 69853 The characteristics of special, immunohistochemical, and immunofluorescence stains and in-situ hybridization tests performed by the [facility] were deemed acceptable in ongoing quality assurance specialist measures and in compliance with regulations drawn from the Clinical Laboratory Improvement Act gj5784 (CLIA '88). Control reactions for all stains performed were deemed adequate and appropriate by a pathologist prior to evaluation of patient tissue. Some diagnoses were rendered with the assistance of laboratory-developed tests utilizing analyte-specific reagents; the performance characteristic of these tests were determined by [facility] and are not cleared or approved by the [place] Food an Drug administration. Laboratory developed test may only be performed in a facility that is certified by the [facility] as a high-complexity laboratory under CLIA '88. These tests are used for clinical purposes and are not investigational. us Notinfile Unknown LAB PATHOLOGY ORDERABLES Final Result from Last 3 Months Insurance [facility] Care Teams Applied Computer Science Professor Relationship Specialty Start Date End Date Mark Scott MD [address] [place] [address] PCP - General 11/10/18
--- OUTSIDE RECORDS SUMMARY | 2024-10-25 12:25 | XMS_ITS | Clinical Summary ---
Author Organization [facility] Herbie asencio Joshanthonywendi Address [address] [place] [address] Care Team Providers Care Marketing Analytics Specialist Name Role Phone Unavailable Primary Care Provider Unavailabl e Allergies Active Allergy Reactions Criticality Noted Date Comments Codeine Nausea and Vomiting High 11/06/2018 Medications ASCORBIC ACID, VITAMIN C, ORAL Take by mouth. Active acyclovir (ZOVIRAX) 400 mg tablet TAKE 1 TABLET BY MOUTH DAILY FOR RASH 10/07/19 25 Active albuterol (PROVENTIL,CORNELIUS JORDEN) 2.5 mg /3 mL (0.083 %) Solution for Nebulization Take 2.5 mg by inhalation. Active amLODIPine (NORVASC) 10 mg tablet amlodipine 10 mg tablet 09/21/19 25 Active cholecalciferol, Vitamin D3, 50 mcg (2,000 unit) Tablet Take 2,000 Units by mouth daily. Active clobetasoL (TEMOVATE) 0.05 % Cream Apply to affected area. 10/15/19 25 Active Trelegy Ellipta 200-62.5-25 mcg Disk with Device INHALE 1 PUFF DAILY DIRECTED Active multivitamin (DAILY-MARIYA) tablet Take 1 Tablet by mouth daily. Active nicotine (NICODERM CQ) 21 mg/24 hr patch Apply 1 Patch to skin as directed every 24 hours. Active pantoprazole (PROTONIX) 40 mg Tablet, Delayed Release (E.C.) Take 40 mg by mouth daily. Active losartan (COZAAR) 100 mg tablet Take 100 mg by mouth daily. Active hydroCHLOROthiaz rianna 25 mg tablet Take 25 mg by mouth daily. Active CALCIUM CARBONATE-VITAMI N D3 ORAL Take by mouth. 025 Discontinu ed(Alterna te therapy prescribed ) Active Problems No known active problems Encounters Date Type Department Care Team Description 10/25/2024 Orders Only [facility] Oncology and Hematology - [address] [place] [address] Markell Godfrey MD Lymphadenopathy of head and neck region (Primary Dx) 10/18/2024 Orders Only [facility] Oncology and Hematology - [address] [place] [address] Markell Godfrey MD Lymphadenopathy of head and neck region (Primary Dx) 10/18/2024 Orders Only [facility] Oncology and Hematology - [address] [place] [address] Markell Godfrey MD Lymphadenopathy of head and neck region (Primary Dx); Non-Hodgkin's lymphoma, unspecified body region, unspecified non-Hodgkin lymphoma type (CMS/HCC) 10/16/2024 External Device Data ST[facility] ABSTRACTION Provider, Abstract 10/16/2024 External Device Data STL ABSTRACTION Provider, Abstract 10/16/2024 External Device Data STL ABSTRACTION Provider, Abstract 10/15/2024 1:30 PM SHOE CEMENTER Office Visit [facility] Oncology and Hematology [facility] [address] [place] [address] Markell Godfrey MD Non-Hodgkin's lymphoma, unspecified body region, unspecified non-Hodgkin lymphoma type (CMS/HCC) (Primary Dx); Lymphadenopathy of head and neck region from Last 3 Months Family History Medical History Relation Name Comments No Known Problems Brother No Known Problems Child No Known Problems Father No Known Problems Mother No Known Problems Sister Relation Name Status Comments Brother Alive Child Alive Father Alive Mother Alive Sister Alive Social History Tobacco Use Types Packs/Day Years Used Date Smoking Tobacco: Every Day Cigarettes 0.5 50 Started: 10/15/1974 Alcohol Use Standard Drinks/Week Comments Yes 0 (1 standard drink = 0.6 oz pur e alcohol) ONLY DURING HOLIDAYS Sex and Gender Information Value Date Recorded Sex Assigned at Not on file Legal Sex Male 1:20 PM SHOE CEMENTER Gender Identity Not on file Sexual Orientation Not on file Last Filed Vital Signs Vital Sign Reading Time Taken Comments Blood Pressure 101/71 10/15/2024 1:25 PM SHOE CEMENTER Pulse 93 10/15/2024 1:25 PM SHOE CEMENTER Temperature 36.4 C (97.6 F) 10/15/2024 1:25 PM SHOE CEMENTER Respiratory Rate 16 10/15/2024 1:25 PM SHOE CEMENTER Oxygen Saturation 90% 10/15/2024 1:25 PM SHOE CEMENTER Inhaled Oxygen Concentration - - Weight 94.3 kg (208 lb) 10/15/2024 1:25 PM SHOE CEMENTER Height 175.3 cm (5' 9 ) 10/15/2024 1:25 PM SHOE CEMENTER Body Mass Index 30.72 10/15/2024 1:25 PM SHOE CEMENTER Plan of Treatment Upcoming Encounters Date Type Department Care Team (Late st Contact Info) Description 11/01/2024 10:00 AM SHOE CEMENTER Office Visit [facility] Oncology and Hematology - [place] [address] [facility] [address] [place] [address] Markell Godfrey MD [address] [facility] [address] [place] [address] Health Maintenance Due Date Last Done Comments Pre-Diabetes and Diabetes Screening 1960 Preventative Visit-Managed Medicaid 01/10/1979 COLORECTAL SCREENING 01/10/2005 Colorectal Cancer Screening 01/10/2005 FIT-DNA Q 3 years 01/10/2005 FIT/FOBT Q 1 year 01/10/2005 Flex Sig/CT Colonography Q 5 years 01/10/2005 Lung Cancer Screening 01/10/2010 ZOSTER VACCINE (1 of 2) 01/10/2010 RSV VACCINE (60+ or ) (1 - Risk 60-74 years 1-dose series) 2020 INFLUENZA VACCINE (#1) 2024 DTAP/TDAP/TD VACCINES (2 - Td or Tdap) 07/19/2032 Insurance MEDICAID [place]
[2024-10-25 12:41] LABS: Glucose Point of Care 97 mg/dl (65-105)
== END 2024-10-25 12:22 | disposition home or self-care (01) ==
LOC: ANHIMG 12:22
PROVIDERS: PCP Nurse Practitioner Family; Visit Provider Internal Medicine Hematology & Oncology
DX: K13.6 Irritative hyperplasia of oral mucosa (principal); R59.0 Localized enlarged lymph nodes; C85.90 Non-Hodgkin lymphoma, unspecified, unspecified site
CPT/HCPCS: 78815; A9552

== ENCOUNTER 2024-11-01 09:51 | Outpatient (CLI) | payer OTHER, SELFPAY ==
--- NOTE | ~2024-11-01 | US_ITS ---
EXAMINATION: US biopsy lymph node DATE: 11/01/2024 11:05 INDICATION: Cervical lymphadenopathy TECHNIQUE: The procedure including the risks and benefits was discussed with the patient. Risks discu ssed included bleeding and infection. The patient understood the risks and agreed to proceed. The sk in overlying the right neck was prepped and draped in usual sterile fashion. Anesthetic was administ ered with 1% lidocaine subcutaneously. An 18 gauge core biopsy needle was advanced under continuous ultrasound observation to the lesion of interest. 5 core biopsy specimens were obtained. The needle was removed and the entry site was cleaned and dressed. Post procedure ultrasound demonstrated no h emorrhage. FINDINGS: Ultrasound images demonstrate a couple enlarged right jugular chain lymph nodes with hypoec hoic solid component and anechoic fluid component suggesting either necrotic or suppurative lymph nod es. Subsequent images demonstrate the biopsy needle advanced into the more caudal of the 2 nodules wh ich measures 2.2 x 1.4 cm. IMPRESSION: 1. Successful Ultrasound-guided biopsy of an enlarged right jugular chain lymph node. Reviewed, dictated and finalized at location A. APPLIANCE WASHING MACHINE MECHANIC
--- OUTSIDE RECORDS SUMMARY | 2024-11-01 10:13 | XMS_ITS | Clinical Summary ---
Author Organization [facility] Address [address] [place] [address] Care Team Providers Care Puddler Pile Driving Name Role Phone Mark Scott MD Primary Care Provider +1- [phone] Allergies Active Allergy Reactions Criticality Noted Date [...] 03/27/2024 Assessment & Plan (08/08/2024 3:04 PM HEALTH SERVICE COORDINATOR): Continue Trelegy Ellipta 200 daily He has [...] is currently in physical therapy, I recommend [place] after this is completed and he is released from his surgeon We have discussed that a return to his previous line of work will be unlikely Recheck PFT and walk testing Cigarette nicotine dependence without complicati on 03/27/2024 Assessment & Plan (08/08/2024 3:04 PM HEALTH SERVICE COORDINATOR): He continues to smoke 1/2 to 3/4 pack cigarettes per day - Smoking cessation counseling and techniques reviewed at length - Avoid triggers and use distraction techniques - He is aware of the [place] Tobacco Quit line: 5-581-BTRQ-YES for free services - 5 minutes spent [...] techniques - He is aware of the [place] Tobacco Quit line: 6-076-SPYW-YES for free services - 4 minutes spent discussing cessation He has nicotine patches at home He is due for annual lung cancer screening in December of 2024 Assessment & Plan (03/27/2024 11:43 AM CDT): - Smoking cessation counseling and techniques reviewed at length - Avoid triggers and use distraction techniques - Participate in support groups - Information given regarding [place] Tobacco Quit line: 7-126-TEUU-YES for free services - 4 minutes spent discussing cessation Continue nicotine patches, order sent today Annual LDCT due 12/2024 Dyspnea 02/22/2024 Encounters Date Type Department Care Team Description 09/20/2024 Orders Only [facility] [address] [place] [address] Unknown, Notinfile 08/08/2024 1:30 PM HEALTH SERVICE COORDINATOR Office Visit [facility] Medical Group Pulmonary at [address] [place] [phone] Lisa Garcia NP Centrilobular emphysema (HCC) [...] on file Legal Sex Male 11:08 AM HEALTH SERVICE COORDINATOR Gender Identity Not on file Sexual Orientation Not on file Obstetrics History Last Filed Vital Signs Vital Sign Reading Time Taken Comments Blood Pressure 130/76 08/08/2024 1:38 PM HEALTH SERVICE COORDINATOR Pulse 93 08/08/2024 1:38 PM HEALTH SERVICE COORDINATOR Temperature 36.5 C (97.7 F) 08/08/2024 1:38 PM HEALTH SERVICE COORDINATOR Respiratory Rate 18 03/06/2024 10:12 AM CDT Oxygen Saturation 94% 08/08/2024 1:38 PM HEALTH SERVICE COORDINATOR Inhaled Oxygen Concentration - - Weight 91.7 kg (202 lb 1.6 oz) 08/08/2024 1:38 P M HEALTH SERVICE COORDINATOR Height 175.3 cm (5' 9 ) 08/08/2024 1:38 PM HEALTH SERVICE COORDINATOR Body Mass Index 29.84 08/08/2024 1:38 PM HEALTH SERVICE COORDINATOR Plan of Treatment Health Maintenance Due Date [...] 09/14/2023, 07/05/2023 Medical Devices Implanted Type Area Senior Gis Analyst Device Identifier Shelf Expiration Date Model / Serial / Lot Coloplast Macy [id number] Titan Lock-Out Inflatable Self Contain Fluid Fill Tube Standard Latex Free - Sn/A - [id number] Implanted:Qty: 1 on 11/10/2018 by Rick Gil MD at [facility] Other - see comments N/A: Penis Coloplast Macy 07/11/2023 [id number] / N/A / [id number] Description:Assembly Kit Following select items implanted: Connectors Rear tip extenders Coloplast Macy [id number] Titan Coloplast Lock-Out Inflatable Self Contain Fluid Fill Valve Latex Free - Sn/A - [id number] Implanted:Qty: 1 on 11/10/2018 by Rick Gil MD at [facility] Other - see comments Right: Abdomen Coloplast Macy 08/17/2023 [id number] / N/A / [id number] Description:[place] Coloplast Macy [id number] Titan Coloplast Lock-Out 18cm Pump Set Inflatable Fluid Fill Soft Latex Free - Sn/A - [id number] Implanted:Qty: 1 on 11/10/2018 by Rick Gil MD at [facility] Other - see comments Right: Penis Coloplast Macy 02/13/2023 [id number] / N/A / [id number] Cordis Mynxgrip 5fr Balloon Catheter Integrate Sealant Lock Latex Free [id number] - [id number] Implanted:Qty: 1 on 03/06/2024 by Mat Byrne MD at [facility] 01/18/2026 [id number] / / [id number] Procedures Procedure Name Priority Date/Time Associated Diagnosis Comments SURGICAL PATHOLOGY Routine 09/20/2024 12 :00 AM HEALTH SERVICE COORDINATOR from Last 3 Months Results * Surgical pathology (09/20/2024 12:00 AM HEALTH SERVICE COORDINATOR) Skin, excision 09/20/2024 09/21/2024 8:35 AM HEALTH SERVICE COORDINATOR Narrative 09/25/2024 1:05 PM HEALTH SERVICE COORDINATOR EPIC results best viewed via link to PDF [facility], [address], [place] [address] [email or web address] Note to Patients: This report may contain [...] REPORTED: 09/25/2024 Submitting Physician Information: Zamzam Plunkett, [facility] Skin Care Center [facility], [address] [place] [address], DERMATOPATHOLOGY REPORT RESULTS DIAGNOSIS: SKIN, STERNUM, EXCISION: [...] ICD-9 A; ZSD.808 ZSD.1387 Clerical Data A; 93243 The characteristics of special, immunohistochemical, and immunofluorescence stains and in-situ hybridization tests performed by the [facility] were deemed acceptable in ongoing quality control assessor measures and in compliance with regulations drawn from the Clinical Laboratory Improvement Act ap6512 (CLIA '88). Control reactions for all stains performed were deemed adequate and appropriate by a pathologist prior to evaluation of patient tissue. Some diagnoses were rendered with the assistance of laboratory-developed tests utilizing analyte-specific reagents; the performance characteristic of these tests were determined by [facility] and are not cleared or approved by the [place] Food an Drug administration. Laboratory developed test may only be performed in a facility that is certified by the [facility] as a high-complexity laboratory under CLIA '88. These tests are used for clinical purposes and are not investigational. us Notinfile Unknown LAB PATHOLOGY ORDERABLES Final Result from Last 3 Months Insurance [facility] Care Teams Puddler Pile Driving Relationship Specialty Start Date End Date Mark Scott MD [address] [place] [address] PCP - General 11/10/18
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
--- OUTSIDE RECORDS SUMMARY | 2024-11-01 10:13 | XMS_ITS | Patient Health Summary ---
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 07/19/2022 3:25 PM, LOCATION [facility] INDICATION: Trauma ADDITIONAL CLINICAL INFORMATION: Ordering Provider Reason For Exam: Trauma COMPARISON: 07/07/2011. FINDINGS/IMPRESSION: There is no focal consolidation, pleural effusion, or pneumothorax. The cardiomediastinal silhouette is normal. The visible bony thorax is intact. Report dictated by Louis Pascal DO (residential remodeling subcontractor). Shelley Melendez MD have personally reviewed and interpreted this examination/study. > Interpreting Provider: Shelley Cassidy MD on 07/19/2022 4:01 PM Procedure Note Shelley Cassidy MD - 07/19/2022 PROCEDURE: XR CHEST 1VW PORTABLE, DATE/TIME OF EXAM: 07/19/2022 3:25PM, LOCATION [facility] INDICATION: Trauma ADDITIONAL CLINICAL INFORMATION: Ordering Provider Reason For Exam: Trauma COMPARISON: 07/07/2011. FINDINGS/IMPRESSION: There is no focal consolidation, pleural effusion, or pneumothorax. The cardiomediastinal silhouette is normal. The visible bony thorax isintact. Report dictated by Louis Pascal DO (residential remodeling subcontractor). Shelley Melendez MD have personally reviewed and interpreted this examination/study. > Interpreting Provider: Shelley Cassidy MD on 07/19/2022 4:01 PM Teo Steinberg MD DIAGNOSTIC IMAGING ORDERABLES * PTT [facility] (07/19/2022 3:18 PM BLACKJACK SUPERVISOR) APTT 25.7 23.0 - 38.4 Seconds 07/19/2022 4:00 PM BLACKJACK SUPERVISOR [facility] Comment:Suggested therapeuti c range for full dose I.V. unfractionated heparin therapy for venous thromboembolism is 71 to 109 seconds. Blood BLOOD SPECIMEN / Unknown Venipuncture / Unknown 07/19/2022 3:18 PM BLACKJACK SUPERVISOR 07/19/2022 3:36 PM BLACKJACK SUPERVISOR Teo Steinberg MD LAB - COAGULATION O RDERABLES [facility] LABORATORY [facility] [address] [place] [address], [facility] [phone] * (ABNORMAL) PT-INR [facility] (07/19/2022 3:18 PM BLACKJACK SUPERVISOR) Pathologist [facility] PT 11.1(L) 12.1 - 14.8 Seconds 07/19/2022 3:59 PM BLACKJACK SUPERVISOR [facility] LABORATORY [facility] INR 0.8 See Comment 07/19/2022 3:59 PM BLACKJACK SUPERVISOR [facility] Comment:The suggested therap eutic range for standard coumadin (warfarin) therapy is an INR of 2.0-3.0. For high-risk patients (Mechanical Mitral Valve Prosthesis, etc.), the suggested prophylactic therapeutic range is an INR of 2.5-3.5. Blood BLOOD SPECIMEN / Unknown Venipuncture / Unknown 07/19/2022 3:18 PM BLACKJACK SUPERVISOR 07/19/2022 3:36 PM BLACKJACK SUPERVISOR Teo Steinberg MD LAB - COAGULATION O RDERABLES Performing Organization Address [facility]/ZIP Co de Phone Number [facility] [address] [place] [address], [facility] [phone] * TYPE + SCREEN PANEL (07/19/2022 3:18 PM BLACKJACK SUPERVISOR) [facility] Antibody Screen NEG 4:21 PM BLACKJACK SUPERVISOR [facility] BLOOD BANK LAB ABO Rh A POS 07/19/2022 4:21 PM BLACKJACK SUPERVISOR [facility] BLOOD BANK LAB Blood Bank BLOOD SPECIMEN / Unknown Venipuncture / Unknown 07/19/2022 3:18 PM BLACKJACK SUPERVISOR 07/19/2022 3:38 PM BLACKJACK SUPERVISOR Teo Steinberg MD LAB - BLOOD BANK OR DERABLES Performing Organization Address [facility]/ZIP Co de Phone Number [facility] BLOOD BANK LAB [address] [place] [address], [facility] [phone] * (ABNORMAL) CBC W AUTO DIFFERENTIAL (07/19/2022 3:18 PM BLACKJACK SUPERVISOR) [facility] WBC 7.1 3.5 - 10.5 10 3/uL 07/19/2022 3:40 PM [facility] RBC 4.66 4.30 - 5.70 10 6/uL 07/19/2022 3:40 PM [facility] Hemoglobin 12.9 12.0 - 17.6 g/dL 07/19/2022 3:40 PM [facility] Hematocrit 40.1 35.2 - 51.7 % 07/19/2022 3:40 PM [facility] MCV 86.1 80.7 - 98.3 fL 07/19/2022 3:40 PM [facility] MCH 27.7 26.7 - 34.0 pg 07/19/2022 3:40 PM [facility] MCHC 32.2 30.8 - 35.9 g/dL 07/19/2022 3:40 PM [facility] RDW-SD 49.6 36.0 - 50.0 fL 07/19/2022 3:40 PM [facility] RDW-CV 15.8(H) 11.2 - 14.8 % 07/19/2022 3:40 PM [facility] Platelet Count 184 150 - 400 10 3/uL 07/19/2022 3:40 PM [facility] MPV 10.6 9.4 - 12.9 fL 07/19/2022 3:40 PM [facility] nRBC Absolute 0.00 0 10 3/uL 07/19/2022 3:40 PM [facility] nRBC Auto 0.0 0 /100 WBC 07/19/2022 3:40 PM [facility] Neutrophils % 55.5 35.0 - 70.0 % 07/19/2022 3:40 PM [facility] Lymphocytes % 38.6 20.0 - 43.0 % 07/19/2022 3:40 PM [facility] Monocytes % 4.7(L) 5.0 - 13.0 % 07/19/2022 3:40 PM [facility] Eosinophils % 0.8 0.0 - 6.0 % 07/19/2022 3:40 PM [facility] Basophil % 0.1 0.0 - 2.0 % 07/19/2022 3:40 PM [facility] Neutrophils Absolute 3.92 1.60 - 7.00 10 3/uL 07/19/2022 3:40 PM [facility] Lymphocyte Absolute 2.73 1.10 - 3.90 10 3/uL 07/19/2022 3:40 PM [facility] Monocytes Absolute 0.33 0.26 - 1.07 10 3/uL 07/19/2022 3:40 PM [facility] Eosinophils Absolute 0.06 0.00 - 0.47 10 3/uL 07/19/2022 3:40 PM [facility] Basophils Absolute 0.01 0.00 - 0.08 10 3/uL 07/19/2022 3:40 PM [facility] Immature Granulocytes % 0.3 0.0 - 1.0 % 07/19/2022 3:40 PM [facility] Immature Granulocytes Absolute 0.02 07/19/2022 3:40 PM [facility] Blood BLOOD SPECIMEN / Unknown Venipuncture / Unknown 07/19/2022 3:18 PM BLACKJACK SUPERVISOR 07/19/2022 3:36 PM BLACKJACK SUPERVISOR Teo Steinberg MD LAB - HEMATOLOGY OR DERABLES Performing Organization Address City/State/[facility] Co de Phone Number [facility] [address] [place] [address], [facility] [phone] * (ABNORMAL) BASIC METABOLIC PANEL (CALCIUM TOTAL) (07/19/2022 3:18 PM BLACKJACK SUPERVISOR) BUN 13 7 - 26 mg/dL 07/19/2022 4:04 PM [facility] Creatinine 1.17(H) 0.71 - 1.16 mg/dL 07/19/2022 4:04 PM [facility] Sodium 140 136 - 145 mmol/L 07/19/2022 4:04 PM [facility] Potassium 3.9 3.5 - 4.5 mmol/L 07/19/2022 4:04 PM [facility] Chloride 108(H) 98 - 107 mmol/L 07/19/2022 4:04 PM [facility] CO2 23 22 - 29 mmol/L 07/19/2022 4:04 PM [facility] Glucose 95 70 - 115 mg/dL 07/19/2022 4:04 PM [facility] Calcium 9.1 8.4 - 10.2 mg/dL 07/19/2022 4:04 PM [facility] Anion Gap 13 8 - 18 07/19/2022 4:04 PM [facility] BUN/Creatinine Ratio 11 7 - 23 07/19/2022 4:04 PM [facility] Osmolality Calculated 290 270 - 300 mOsm/kg 07/19/2022 4:04 PM [facility] eGFR by CKD-EPI 70(L) >=90 mL/min/1.7 3 m2 07/19/2022 4:04 PM [facility] Blood BLOOD SPECIMEN / Unknown Venipuncture / Unknown 07/19/2022 3:18 PM BLACKJACK SUPERVISOR 07/19/2022 3:36 PM [facility] Teo Steinberg MD LAB - CHEMISTRY ORD ERABLES [address] [address], [facility] [phone] * ALCOHOL ETHYL BLOOD (07/19/2022 3:18 PM BLACKJACK SUPERVISOR) Ethanol (mg/dL) <10 <10 mg/dL 4:04 PM [facility] Ethanol Calculated (g/dL) <0.010 <=0.010 g/dL 07/19/2022 4:04 PM [facility] Blood BLOOD SPECIMEN / Unknown Venipuncture / Unknown 07/19/2022 3:18 PM BLACKJACK SUPERVISOR 07/19/2022 3:36 PM [facility] - 07/19/2022 4:04 PM [facility] Ethanol Interp <10: None Detected. Depression of GREEN BUILDING ARCHITECT: >100 mg/dl Potentially Critical: >250 mg/dl Potentially [...] Steinberg MD LAB - CHEMISTRY ORD ERABLES [facility] [address] [place] [address], [facility] [phone] * PROSTATE SPECIFIC ANTIGEN SCREEN (08/31/2016 11:35 AM BLACKJACK SUPERVISOR) Only the most recent of2 resultswithin the time period is included. PSA Total 0.6 < OR = 4.0 ng/mL [facility] ([facility]) Comment: This test was performed using the Siemens chemiluminescent method. Values obtained from different assay methods cannot be used interchangeably. PSA levels, regardless of value, should not be interpreted as absolute evidence of the presence or absence of disease. REPORT COMMENT: PLEASE FAX RESULTS TO [phone]! Test Performed at: [facility] [address] [place] [address] DEMARCO BEYER DO,MPH Venous blood specimen (specimen) 08/31/2016 11:35 AM BLACKJACK SUPERVISOR 08/31/2016 11:36 AM BLACKJACK SUPERVISOR Narrative [facility] ([facility]) - 09/01/2016 6:00 AM BLACKJACK SUPERVISOR PLEASE FAX RESULTS TO [phone]! Giuseppe Norton MD LAB - CHEMIS TRY ORDERABLES Performing Organization Address City/[facility]/ZIP Co de Phone Number [facility] ([facility]) * URINALYSIS AUTO - POINT OF CARE (AMB) [facility] (08/23/2016 1:56 PM BLACKJACK SUPERVISOR) Only the most recent of4 resultswithin the time period is included. Glucose UA neg [facility] Bilirubin UA POCT neg [facility] Ketones UA POCT neg [facility] Specific Atlantic UA 1.030 [facility] Blood Urine POCT neg [facility] pH UA 6.0 [facility] Protein UA neg [facility] Urobilinogen UA 3.5 [facility] Nitrite UA neg [facility] WBC UA neg [facility] Urine specimen (specimen) 08/23/2016 1:56 PM BLACKJACK SUPERVISOR Giuseppe Norton MD LAB - POINT OF CARE ORDERABLES [facility] * URINALYSIS - POINT OF CARE (AMB) [facility] (09/01/2015) Glucose UA NEG [facility] Bilirubin UA POCT NEG [facility] Ketones UA POCT 0.5 [facility] Specific [place] UA 1.030 [facility] Blood Urine POCT NEG [facility] pH UA 5.5 [facility] Protein UA NEG [facility] Urobilinogen UA 3.5 [facility] Nitrite UA NEG [facility] WBC UA NEG [facility] Urine specimen (specimen) 09/01/2015 Giuseppe Norton MD LAB - POINT OF CARE ORDERABLES [facility] * PATHOLOGY REPORTS - [facility] (01/05/2010 6:54 AM CDT) 01/05/2010 6:[address] [facility] - 01/05/2010 6:54 AM CDT Ean Conway MD LAB - PATHOLOGY/CYTO LOGY ORDERABLES [facility] Care Teams Medical Transcription Editor Relationship Specialty Start Date End Date Paul Rene MD [address] [place] [address] PCP - General 07/01/22
--- OUTSIDE RECORDS SUMMARY | 2024-11-01 10:13 | XMS_ITS | Referral Summary ---
Author Organization [facility] Address [address] [place] [address] Care Team Providers Care Bath Steward/Stewardess Name Role Phone Mark Scott MD Primary Care Provider [phone] Encounters Date Type Department Care Team Description 09/20/2024 Orders Only [facility] [address] [place] [address] Unknown, Notinfile 08/08/2024 1:30 PM PASTRY BAKER Office Visit [facility] Pulmonary at [address] [place] [address] Lisa Garcia NP Centrilobular emphysema [...] 03/27/2024 Assessment & Plan (08/08/2024 3:04 PM PASTRY BAKER): Continue Trelegy Ellipta 200 daily He has [...] is currently in physical therapy, I recommend AL after this is completed and he is released from his surgeon We have discussed that a return to his previous line of work will be unlikely Recheck PFT and walk testing Cigarette nicotine dependence without complicati on 03/27/2024 Assessment & Plan (08/08/2024 3:04 PM PASTRY BAKER): He continues to smoke 1/2 to 3/4 pack cigarettes per day - Smoking cessation counseling and techniques reviewed at length - Avoid triggers and use distraction techniques - He is aware of the [place] Tobacco Quit line: 2-847-HWLP-YES for free services - 5 minutes spent [...] aware of the [place] Tobacco Quit line: 3-705-PQPI-YES for free services - 4 minutes spent discussing cessation He has nicotine patches at home He is due for annual lung cancer screening in December of 2024 Assessment & Plan (03/27/2024 11:43 AM CDT): - Smoking cessation counseling and techniques reviewed at length - Avoid triggers and use distraction techniques - Participate in support groups - Information given regarding [place] Tobacco Quit line: 7-754-FTOH-YES for free services - 4 minutes spent [...] on file Legal Sex Male 11:08 AM PASTRY BAKER Gender Identity Not on file Sexual Orientation Not on file Last Filed Vital Signs Vital Sign Reading Time Taken Comments Blood Pressure 130/76 08/08/2024 1:38 PM PASTRY BAKER Pulse 93 08/08/2024 1:38 PM PASTRY BAKER Temperature 36.5 C (97.7 F) 08/08/2024 1:38 PM PASTRY BAKER Respiratory Rate 18 03/06/2024 10:12 AM CDT Oxygen Saturation 94% 08/08/2024 1:38 PM PASTRY BAKER Inhaled Oxygen Concentration - - Weight 91.7 kg (202 lb 1.6 oz) 08/08/2024 1:38 P M PASTRY BAKER Height 175.3 cm (5' 9 ) 08/08/2024 1:38 PM PASTRY BAKER Body Mass Index 29.84 08/08/2024 1:38 PM PASTRY BAKER Plan of Treatment Not on file Medical Devices Implanted Type Area Rn House Supervisor Device Identifier Shelf Expiration Date Model / Serial / Lot Coloplast Macy [id number] Titan Lock-Out Inflatable Self Contain Fluid Fill Tube Standard Latex Free - Sn/A - [id number] Implanted:Qty: 1 on 11/10/2018 by Rick Gil MD at [facility] Other - see comments N/A: Penis Coloplast Macy 07/11/2023 [id number] / N/A / [id number] Description:Assembly Kit Following select items implanted: Connectors Rear tip extenders Coloplast Macy [id number] Titan Coloplast Lock-Out Inflatable Self Contain Fluid Fill Valve Latex Free - Sn/A - [id number] Implanted:Qty: 1 on 11/10/2018 by Rick Gil MD at [facility] Other - see comments Right: Abdomen Coloplast Macy 08/17/2023 [id number] / N/A / [id number] Description:[place] Coloplast Macy [id number] Titan Coloplast Lock-Out 18cm Pump Set Inflatable Fluid Fill Soft Latex Free - Sn/A - [id number] Implanted:Qty: 1 on 11/10/2018 by Rick Gil MD at [facility] Other - see comments Right: Penis Coloplast Macy 02/13/2023 [id number] / N/A / [id number] Cordis Mynxgrip 5fr Balloon Catheter Integrate Sealant Lock Latex Free [id number] - [id number] Implanted:Qty: 1 on 03/06/2024 by Mat Byrne MD at [facility] 01/18/2026 [id number] / / [id number] Procedures Procedure Name Priority Date/Time Associated Diagnosis Comments SURGICAL PATHOLOGY Routine 09/20/2024 12 :00 AM PASTRY BAKER from Last 3 Months Results * Surgical pathology (09/20/2024 12:00 AM PASTRY BAKER) Skin, excision 09/20/2024 09/21/2024 8:35 AM PASTRY BAKER Narrative 09/25/2024 1:05 PM PASTRY BAKER EPIC results best viewed via link to PDF [facility] [address] [place] [address], [address], [place] [address] [email or web address] Note to Patients: This report may contain [...] REPORTED: 09/25/2024 Submitting Physician Information: Zamzam Plunkett [facility], [address] [place] [address], DERMATOPATHOLOGY REPORT RESULTS DIAGNOSIS: SKIN, STERNUM, EXCISION: [...] ICD-9 A; ZSD.808 ZSD.1387 Clerical Data A; 46171 The characteristics of special, immunohistochemical, and immunofluorescence stains and in-situ hybridization tests performed by the [facility] were deemed acceptable in ongoing quality process lead measures and in compliance with regulations drawn from the Clinical Laboratory Improvement Act mi6290 (CLIA '88). Control reactions for all stains performed were deemed adequate and appropriate by a pathologist prior to evaluation of patient tissue. Some diagnoses were rendered with the assistance of laboratory-developed tests utilizing analyte-specific reagents; the performance characteristic of these tests were determined by [facility] and are not cleared or approved by the [place] Food an Drug administration. Laboratory developed test may only be performed in a facility that is certified by the [facility] as a high-complexity laboratory under CLIA '88. These tests are used for clinical purposes and are not investigational. us Notinfile Unknown LAB PATHOLOGY ORDERABLES Final Result from Last 3 Months Insurance [facility] Care Teams Bath Steward/Stewardess Relationship Specialty Start Date End Date Mark Scott MD [address] [place] [address] PCP - General 11/10/18
--- OUTSIDE RECORDS SUMMARY | 2024-11-01 10:14 | XMS_ITS | Referral Summary ---
Author Organization [facility] Ram[facility] Address [address] [place] [address] Care Team Providers Care Labor Contractor Name Role Phone Paul Rene MD Primary Care Provider Source Comments [facility],non-owned Affiliates and Associated Physician Practices is amultiple site organization consisting of ambulatory clinics and hospital sitesin [place], [place], [place] and [place]. This disclosure is being madepursuant to the Care Everywhere program and may not contain all information available regarding this patient. Last updated 18.[facility] Allergies Active Allergy Reactions Criticality Noted Date [...] Comments Blood Pressure 145/82 07/21/2022 12:24 PM PLY BANDER Pulse 50 07/21/2022 12:24 PM PLY BANDER Temperature 36.4 C (97.6 F) 07/21/2022 12:24 PM PLY BANDER Respiratory Rate 18 07/21/2022 12:2 4 PM PLY BANDER Oxygen Saturation 91% 07/21/2022 12: 24 PM PLY BANDER Inhaled Oxygen Concentration - - Weight 86.1 kg (189 lb 13.1 oz) 07/20/2022 8:44 PM PLY BANDER Height 173.5 cm (5' 8.31 ) 07/20/2022 8:44 PM CS T Body Mass Index 28.6 07/20/2022 8:44 PM PLY BANDER Plan of Treatment Not on file Procedures Procedure Name Priority Date/Time Associated Diagnosis Comments BASIC METABOLIC PANEL (CALCIUM TOTAL) STAT 07/19/2022 3:18 PM PLY BANDER from Last 3 Months or Most Recently Relevant to Health Maintenance Results * (ABNORMAL) BASIC METABOLIC PANEL (CALCIUM TOTAL) (07/19/2022 3:18 PM PLY BANDER) BUN 13 7 - 26 mg/dL 07/19/2022 4:04 PM [facility] Creatinine 1.17(H) 0.71 - 1.16 mg/dL 07/19/2022 4:04 PM [facility] Sodium 140 136 - 145 mmol/L 07/19/2022 4:04 PM [facility] Potassium 3.9 3.5 - 4.5 mmol/L 07/19/2022 4:04 PM PLY BANDER [facility] Chloride 108(H) 98 - 107 mmol/L 07/19/2022 4:04 PM [facility] CO2 23 22 - 29 mmol/L 07/19/2022 4:04 PM [facility] Glucose 95 70 - 115 mg/dL 07/19/2022 4:04 PM [facility] Calcium 9.1 8.4 - 10.2 mg/dL 07/19/2022 4:04 PM [facility] Anion Gap 13 8 - 18 07/19/2022 4:04 PM [facility] BUN/Creatinine Ratio 11 7 - 23 07/19/2022 4:04 PM [facility] Osmolality Calculated 290 270 - 300 mOsm/kg 07/19/2022 4:04 PM [facility] eGFR by CKD-EPI 70(L) >=90 mL/min/1.7 3 m2 07/19/2022 4:04 PM [facility] Blood BLOOD SPECIMEN / Unknown Venipuncture / Unknown 07/19/2022 3:18 PM PLY BANDER 07/19/2022 3:36 PM PLY BANDER Teo Steinberg MD LAB - CHEMISTRY ORD ERABLES [facility] [address] [place] [address], [facility] [phone] from Last 3 Months or Most Recently Relevant to Health Maintenance Advance Directives * Full Code (Latest Code Status on File) Date Activated Date Inactivated Comments 07/20/2022 12:23 AM 07/21/2022 6:10 PM Care Teams Labor Contractor Relationship Specialty Start Date End Date Paul Rene MD [address] [place] [address] PCP - General 07/01/22
--- OUTSIDE RECORDS SUMMARY | 2024-11-01 10:14 | XMS_ITS | Clinical Summary ---
Author Organization [facility] Address [address] [place] [address] Care Team Providers Care Snow Blower Name Role Phone Paul Rene MD Primary Care Provider Source Comments [facility],non-owned Affiliates and Associated Physician Practices is amultiple site organization consisting of ambulatory clinics and hospital sitesin [place], [place], [place] and [place]. This disclosure is being madepursuant to the Care Everywhere program and may not contain all information available regarding this patient. Last updated 18.[facility] Allergies Active Allergy Reactions Criticality Noted Date [...] Comments Blood Pressure 145/82 07/21/2022 12:24 PM FORMING MACHINE UPKEEP MECHANIC Pulse 50 07/21/2022 12:24 PM FORMING MACHINE UPKEEP MECHANIC Temperature 36.4 C (97.6 F) 07/21/2022 12:24 PM FORMING MACHINE UPKEEP MECHANIC Respiratory Rate 18 07/21/2022 12:2 4 PM FORMING MACHINE UPKEEP MECHANIC Oxygen Saturation 91% 07/21/2022 12: 24 PM FORMING MACHINE UPKEEP MECHANIC Inhaled Oxygen Concentration - - Weight 86.1 kg (189 lb 13.1 oz) 07/20/2022 8:44 PM FORMING MACHINE UPKEEP MECHANIC Height 173.5 cm (5' 8.31 ) 07/20/2022 8:44 PM CS T Body Mass Index 28.6 07/20/2022 8:44 PM FORMING MACHINE UPKEEP MECHANIC Plan of Treatment Health Maintenance Due Date [...] PANEL (CALCIUM TOTAL) STAT 07/19/2022 3:18 PM FORMING MACHINE UPKEEP MECHANIC from Last 3 Months or Most Recently Relevant to Health Maintenance Results * (ABNORMAL) BASIC METABOLIC PANEL (CALCIUM TOTAL) (07/19/2022 3:18 PM FORMING MACHINE UPKEEP MECHANIC) BUN 13 7 - 26 mg/dL 07/19/2022 4:04 PM [facility] Creatinine 1.17(H) 0.71 - 1.16 mg/dL 07/19/2022 4:04 PM [facility] Sodium 140 136 - 145 mmol/L 07/19/2022 4:04 PM [facility] Potassium 3.9 3.5 - 4.5 mmol/L 07/19/2022 4:04 PM [facility] Chloride 108(H) 98 - 107 mmol/L 07/19/2022 4:04 PM [facility] CO2 23 22 - 29 mmol/L 07/19/2022 4:04 PM [facility] Glucose 95 70 - 115 mg/dL 07/19/2022 4:04 PM [facility] Calcium 9.1 8.4 - 10.2 mg/dL 07/19/2022 4:04 PM [facility] Anion Gap 13 8 - 18 07/19/2022 4:04 PM [facility] BUN/Creatinine Ratio 11 07/19/2022 4:04 PM [facility] Osmolality Calculated 290 270 - 300 mOsm/kg 07/19/2022 4:04 PM [facility] eGFR by CKD-EPI 70(L) >=90 mL/min/1.7 3 m2 07/19/2022 4:04 PM [facility] Blood BLOOD SPECIMEN / Unknown Venipuncture / Unknown 07/19/2022 3:18 PM FORMING MACHINE UPKEEP MECHANIC 07/19/2022 3:36 PM [facility] Teo Steinberg MD LAB - CHEMISTRY ORD ERABLES [facility] [address] [place] [address], [facility] [phone] from Last 3 Months or Most Recently Relevant to Health Maintenance Advance Directives * Full Code (Latest Code Status on File) Date Activated Date Inactivated Comments 07/20/2022 12:23 AM 07/21/2022 6:10 PM Care Teams Snow Blower Relationship Specialty Start Date End Date Paul Rene MD [address] [place] [address] PCP - General 07/01/22
--- OUTSIDE RECORDS SUMMARY | 2024-11-01 10:14 | XMS_ITS | Continuity of Care Document ---
Author Organization [facility] Address [address] [place] [address] Phone Care Team Providers Care Observation Assistant Name Role Phone Drew WEIR, Usman Unavailable [...] Providers Copied on Encounter [facility], [address], [place], [address], [place] tel:[phone] [facility] Lesion of ulnar nerve, left upper limb 3 Drew Mary. [address], [place], [address]. tel:[phone] OFFICE/OUTPA TIENT VISIT EST [facility], [address], [place], [address], [place] tel:[phone] [facility] Cubital tunnel syndrome, leftBody mass index [BMI] 28.0-28.9, adult - 3 Pinnamaneni Usman. [address], [place], [address]. tel:[phone] Referring Provider: Miguel Rene, [address] [facility] [address], [place], [address]. tel:[phone] OFFICE/OUTPA TIENT VISIT EST [facility], [address], [place], [address], [place] tel:[phone] [facility] S/P right rotator cuff repair 3 Cezar Wyman. [address], [place], [address]. tel:[phone] Referring Provider: Miguel Rene, [address] [facility] [address], [place], [address]. tel:[phone] [facility], [address], [place], [address], [place] tel:[phone] [facility] S/P right rotator cuff repair 3 [address] Usman. [address], [place], [address]. tel:[phone] Referring Provider: Miguel Rene, [address] [facility] [address], [place], [address]. tel:[phone] [facility], [address], [place], [address], [place] tel:[phone] [facility] No Information 3 Pinn[address] Usman. [address], [place], [address]. tel:[phone] [facility], [address], [place], [address], [place] tel:[phone] [facility] S/P right rotator cuff repair 3 Cezar Wyman. [address], [place], [address]. tel:[phone] Referring Provider: Miguel Rene [address] [place] [address] [address], [place], [address]. tel:[phone] [facility], [address], [place], [address], [place] tel:[phone] [facility] S/P right rotator cuff repair 3 [address] W[address], [place], [address]. tel:[phone] Referring Provider: Miguel Rene, [address] [facility] [address], [place], [address]. tel:[phone] [facility], [address], [place], [address], [place] tel:[phone] [facility] S/P right rotator cuff repair 3 Drew Mary. [address], [place], [address]. tel:[phone] [facility], [address] [address], [place], [address], [place] tel:[phone] [facility] Complete tear of right rotator cuff, unspecified whether traumaticRigh t bicipital tenosynovitis Degenerative superior labral hwehaytl-qx-q osterior (SLAP) tear of right shoulderOther sprain of right shoulder joint, initial encounterStra in of muscle, fascia and tendon of long head of biceps, right arm, initial encounterImpi ngement syndrome of right shoulderOsteo phyte, right shoulder 3 Drew Mary. [address], [place], [address]. tel:[phone] [facility], [address], [place], [address], [place] tel:[phone] [facility] Incomplete tear of right rotator cuff, unspecified whether traumatic 3 Drew Mary. [address], [place], [address]. tel:[phone] [facility], [address] [facility] [address], [place], [address], [place] tel:[phone] [facility] Incomplete tear of right rotator cuff, unspecified whether traumaticBody mass index [BMI] 28.0-28.9, adult 3 Drew Mary. [address], [place], [address]. tel:[phone] Referring Provider: Miguel Rene, [address] [place] [address] [address], [place], [address]. tel:[phone] Family History Family Member Type Diagnosis Age At Onset No Information Payers Payer name Insurance type Covered green party ID [place] rosado(s) [facility] OT [id number] Social History Type Description Quantity Date [...]
--- OUTSIDE RECORDS SUMMARY | 2024-11-01 10:14 | XMS_ITS | Clinical Summary ---
Author Organization [facility] Herbie asencio Wilberanthonywendi Address [address] [place] [address] Care Team Providers Care Nitro Worker Name Role Phone Unavailable Primary Care Provider [...] Department Care Team Description 10/25/2024 Orders Only [facility] Oncology and Hematology - [address] [place] [address] Markell Godfrey MD Lymphadenopathy of head and neck region (Primary Dx) 10/18/2024 Orders Only [facility] Oncology and Hematology - [address] [place] [address] Markell Godfrey MD Lymphadenopathy of head and neck region (Primary Dx) 10/18/2024 Orders Only [facility] Oncology and Hematology - [address] [place] [address] Markell Godfrey MD Lymphadenopathy of head and neck region (Primary Dx); Non-Hodgkin's lymphoma, unspecified body region, unspecified non-Hodgkin lymphoma type (CMS/HCC) 10/16/2024 External Device Data STL ABSTRACTION Provider, Abstract 10/16/2024 External Device Data STL ABSTRACTION Provider, Abstract 10/16/2024 External Device Data STL ABSTRACTION Provider, Abstract 10/15/2024 1:30 PM DEPLOYMENT MANAGER Office Visit [facility] Oncology and Hematology [facility] [address] [place] [address] Markell Godfrey MD Non-Hodgkin's lymphoma, unspecified body [...] on file Legal Sex Male 1:20 PM DEPLOYMENT MANAGER Gender Identity Not on file Sexual Orientation Not on file Last Filed Vital Signs Vital Sign Reading Time Taken Comments Blood Pressure 101/71 10/15/2024 1:25 PM DEPLOYMENT MANAGER Pulse 93 10/15/2024 1:25 PM DEPLOYMENT MANAGER Temperature 36.4 C (97.6 F) 10/15/2024 1:25 PM DEPLOYMENT MANAGER Respiratory Rate 16 10/15/2024 1:25 PM DEPLOYMENT MANAGER Oxygen Saturation 90% 10/15/2024 1:25 PM DEPLOYMENT MANAGER Inhaled Oxygen Concentration - - Weight 94.3 kg (208 lb) 10/15/2024 1:25 PM DEPLOYMENT MANAGER Height 175.3 cm (5' 9 ) 10/15/2024 1:25 PM DEPLOYMENT MANAGER Body Mass Index 30.72 10/15/2024 1:25 PM DEPLOYMENT MANAGER Plan of Treatment Upcoming Encounters Date Type Department Care Team (Late st Contact Info) Description 11/12/2024 2:45 PM DEPLOYMENT MANAGER Office Visit [facility] Oncology and Hematology [facility] [address] [facility] [address] [place] [address] Markell Godfrey MD [address] [facility] [address] [place] [address] Health Maintenance Due Date Last [...] (2 - Td or Tdap) 07/19/2032 Insurance [facility] MEDICAID
--- OUTSIDE RECORDS SUMMARY | 2024-11-01 10:14 | XMS_ITS | Continuity of Care Document ---
Author Organization [facility] Address [address] [place] [address] [address] [place] [address] Phone Care Team Providers Care Plant And Instrument Engineer Name Role Phone Louann Hernandez Unavailable Unavailable Procedures Procedure Date Eye Exam & Treatment Refraction Advance Directives Directive Yes / No Effective Date File Name No Information Encounters Encounter Description Practice Location Reason(s) For Visit Diagnoses Date Provider Providers Copied on Encounter [facility], [address] [place] [address] [address], [place], [place], [address], [place] tel:[phone] [facility] No Information [address] Mary Lew. [address], [place], [address], [place]. tel:[phone] Family History Family Member Type Diagnosis Age At Onset No Information Payers Payer name Insurance type Covered republican ID Authoriza tion(s) [employer]I [id number] Social History Type Description Quantity Date Captured [...]
== END 2024-11-01 09:52 | disposition home or self-care (01) ==
LOC: ANHIMG 09:57
PROVIDERS: PCP Nurse Practitioner Family; Visit Provider Internal Medicine Hematology & Oncology
DX: R59.0 Localized enlarged lymph nodes (principal)
CPT/HCPCS: 38505; 76942; 88305; 88342

== ENCOUNTER 2024-11-30 00:31 | Day surgery (SDC) | payer OTHER, SELFPAY ==
[2024-11-27 14:15] VITALS: BMI 29.5
--- NOTE | 2024-11-27 14:21 | SUR.PREOP ---
Report to the Outpatient Waiting Room, entrance under the green pavilion located off [facility], at time _0800_ on date 11/30/24. Planned Procedure Time: _1000__.? Time changes happen often and if your time is changed the preop area will call you the afternoon before. - You and your visitor will be asked to self-screen and do not enter if you have any COVID symptoms. Please call surgeon if you need to reschedule. - A mask is optional within the hospital at this time. Patients may have clear liquids (water, carbonated beverages, clear teas, apple juice) until 3 hours prior to surgery with a maximum of 20 ounces. - No food from midnight until time of surgery and no smoking, or chewing tobacco (or any form of nicotine). No chewing gum, candy or mints. - Infants may have breast milk until 4 hours before surgery, infant formula 6 hours prior to surgery. - Children will be allowed to drink immediately following surgery.? If applicable, please bring a bottle or sippy cup to assist with drinking. Juice, water, soda, and popsicles are readily available.? For infants on formula, please bring formula the day of surgery.? Pacifiers are allowed. Take only the following medications with a SIP of water on the morning of surgery: ____NA DO NOT STOP ANY OF YOUR OTHER PRESCRIPTION MEDICATIONS PRIOR TO SURGERY EXCEPT THE FOLLOWING Hold all vitamins and supplements for 3 days per anesthesiologist. Medications to discontinue per physician __LOSARTAN AND PROPANOLOL MORNING OF SURGERY Date to take last dose Please no make-up, nail faroese, hairspray, perfume, deodorant, or body powder the day of surgery.? No jewelry (including any body piercings) or valuables the day of surgery, leave them at home.? Please take a shower or bath the night before, or the morning of, surgery with an antibacterial soap.? Wear comfortable, loose fitting clothing.? Children are encouraged to wear pajamas. - Jewelry must be removed prior to entering the operating room.? Rings and piercings that are not removed may be cut off. - The hospital will not accept responsibility for valuables.? - Please leave all valuables, including medications, at home the day of surgery. If you are going home after surgery, a licensed driver manager must drive you home.? - NO public transportation without another adult if you receive anesthesia. - We recommend that an adult stay with you for 24 hours following discharge. - We also recommend that you do not drive, make important decision, drink alcoholic beverages, or take any drugs that were not prescribed by your health care provider for at least 24 hours after your discharge time. For Pediatric surgeries, we recommend two adults accompany the child home. Follow any additional instructions given to you from your surgeon. Telephone instructions given to __PATIENT___and asked if any additional questions and then verbalized understanding. Patient advised to call surgeon office or pre surgery nurse liaison [phone] if any additional questions.
[2024-11-30] VITALS (7 sets, daily range): BP systolic 119–143; BP diastolic 76–90; PULSE 69–78; RESP 11–18; TEMP 36.1–36.2; O2SAT 94–100
--- OUTSIDE RECORDS SUMMARY | 2024-11-30 00:33 | XMS_ITS | Continuity of Care Document ---
Author Organization [facility] Address [address] [place] [address] Phone Care Team Providers Care Radio Host Name Role Phone Drew WEIR, Usman Unavailable [...] Providers Copied on Encounter [facility], [address], [place], [address], [place] tel:[phone] [facility] Lesion of ulnar nerve, left upper limb 3 Drew Mary. [address], [place], [address]. tel:[phone] OFFICE/OUTPA TIENT VISIT EST [facility], [address], [place], [address], [place] tel:[phone] [facility] Cubital tunnel syndrome, leftBody mass index [BMI] 28.0-28.9, adult - 3 Pinn[address] Usman. [address], [place], [address]. tel:[phone] Referring Provider: Miguel Rene, [address] [facility] [address], [place], [address]. tel:[phone] OFFICE/OUTPA TIENT VISIT EST [facility], [address], [place], [address], [place] tel:[phone] [facility] S/P right rotator cuff repair 3 Cez[address] Wyman. [address], [place], [address]. tel:[phone] Referring Provider: Miguel Rene, [address] [facility] [address], [place], [address]. tel:[phone] [facility], [address], [place], [address], [place] tel:[phone] [facility] S/P right rotator cuff repair 3 [address] Usman. [address], [place], [address]. tel:[phone] Referring Provider: Miguel Rene, [address] [facility] [address], [place], [address]. tel:[phone] [facility], [address], [place], [address], [place] tel:[phone] [facility] No Information 3 [address] Usman. [address], [place], [address]. tel:[phone] [facility], [address], [place], [address], [place] tel:[phone] [facility] S/P right rotator cuff repair 3 Cez[address] Wyman. [address], [place], [address]. tel:[phone] Referring Provider: Miguel Rene [address] [place] [address] [address], [place], [address]. tel:[phone] [facility], [address] [facility] [address], [place], [address], [place] tel:[phone] [facility] S/P right rotator cuff repair 3 [address] Wyman. [address], [place], [address]. tel:[phone] Referring Provider: Miguel Rene, [address] [facility] [address], [place], [address]. tel:[phone] [facility], [address] [facility] [facility] [address], [place], [address], [place] tel:[phone] [facility] S/P right rotator cuff repair 3 Drew Mary. [address], [place], [address]. tel:[phone] [facility], [address] [address], [place], [address], [place] tel:[phone] [facility] Complete tear of right rotator cuff, unspecified whether traumaticRigh t bicipital tenosynovitis Degenerative superior labral rbweaotb-yg-z osterior (SLAP) tear of right shoulderOther sprain of right shoulder joint, initial encounterStra in of muscle, fascia and tendon of long head of biceps, right arm, initial encounterImpi ngement syndrome of right shoulderOsteo phyte, right shoulder 3 Drew Mary. [address], [place], [address]. tel:[phone] [facility], [address] [facility] [address], [place], [address], [place] tel:[phone] [facility] Incomplete tear of right rotator cuff, unspecified whether traumatic 3 Drew Mary. [address], [place], [address]. tel:[phone] [facility], [address] [facility] [address], [place], [address], [place] tel:[phone] [facility] Incomplete tear of right rotator cuff, unspecified whether traumaticBody mass index [BMI] 28.0-28.9, adult 3 Drew Mary. [address], [place], [address]. tel:[phone] Referring Provider: Miguel Rene, [address] [place] [address] [address], [place], [address]. tel:[phone] Family History Family Member Type Diagnosis Age At Onset No Information Payers Payer name Insurance type Covered libertarian ID [place] rosado(s) [facility] OT [id number] Social History Type Description Quantity Date [...] to Body mass index [BMI] 28.0-28.9, adult Take medications as directed. Re lated to S/P right rotator cuff repair Inform physician of any changes in symptoms or pain. Related to S/P right rotator cuff repair Giving encouragement to exercise Related to Body mass index [BMI] 28.0-28.9, adult Assessments Type Assessment Date No Information Patient Care Teams Name Effective Dates (start - stop) Status Members No Information
--- OUTSIDE RECORDS SUMMARY | 2024-11-30 00:33 | XMS_ITS | Clinical Summary ---
Author Organization [facility] Address [address] [place] [address] Care Team Providers Care Land Surveying Survey Worker Name Role Phone Mark Scott MD Primary Care Provider [phone] Allergies Active Allergy Reactions Criticality Noted Date [...] 03/27/2024 Assessment & Plan (08/08/2024 3:04 PM AIRPLANE CLEANER): Continue Trelegy Ellipta 200 daily He has [...] is currently in physical therapy, I recommend [place] after this is completed and he is released from his surgeon We have discussed that a return to his previous line of work will be unlikely Recheck PFT and walk testing Cigarette nicotine dependence without complicati on 03/27/2024 Assessment & Plan (08/08/2024 3:04 PM AIRPLANE CLEANER): He continues to smoke 1/2 to 3/4 pack cigarettes per day - Smoking cessation counseling and techniques reviewed at length - Avoid triggers and use distraction techniques - He is aware of the [place] Tobacco Quit line: 0-077-EIXC-YES for free services - 5 minutes spent [...] techniques - He is aware of the [place] Tobacco Quit line: 9-232-TOQP-YES for free services - 4 minutes spent discussing cessation He has nicotine patches at home He is due for annual lung cancer screening in December of 2024 Assessment & Plan (03/27/2024 11:43 AM CDT): - Smoking cessation counseling and techniques reviewed at length - Avoid triggers and use distraction techniques - Participate in support groups - Information given regarding [place] Tobacco Quit line: 8-679-DXCR-YES for free services - 4 minutes spent discussing cessation Continue nicotine patches, order sent today Annual LDCT due 12/2024 Dyspnea 02/22/2024 Encounters Date Type Department Care Team Description 09/20/2024 Orders Only [facility] [address] [place] [address] Unknown, Notinfile from Last 3 Months Surgical History Surgery [...] Date Smoking Tobacco: Every Day Cigarettes 0.5 52.2 Started: 1972 Smokeless Tobacco: Never Tobacco Cessation:Ready [...] on file Legal Sex Male 11:08 AM AIRPLANE CLEANER Gender Identity Not on file Sexual Orientation Not on file Obstetrics History Last Filed Vital Signs Vital Sign Reading Time Taken Comments Blood Pressure 130/76 08/08/2024 1:38 PM AIRPLANE CLEANER Pulse 93 08/08/2024 1:38 PM AIRPLANE CLEANER Temperature 36.5 C (97.7 F) 08/08/2024 1:38 PM AIRPLANE CLEANER Respiratory Rate 18 03/06/2024 10:12 AM CDT Oxygen Saturation 94% 08/08/2024 1:38 PM AIRPLANE CLEANER Inhaled Oxygen Concentration - - Weight 91.7 kg (202 lb 1.6 oz) 08/08/2024 1:38 P M AIRPLANE CLEANER Height 175.3 cm (5' 9 ) 08/08/2024 1:38 PM AIRPLANE CLEANER Body Mass Index 29.84 08/08/2024 1:38 PM AIRPLANE CLEANER Plan of Treatment Health Maintenance Due Date Last Done Comments Colon Cancer Screening-Colonoscopy 1960 Depression Screening 1960 Hepatitis C Screening 1960 Prostate Cancer Screening-PSA 1960 Hepatitis B Screening 01/10/1978 Regular Well Visit/Exam 18-64 01/10/1978 Lung Cancer Screening 01/10/2010 Covid-19 Vaccine ( season) 05/13/202401/2021 Influenza Vaccine (#1) 2024 , 06/23/2020, 08/13/2014 DTaP/Tdap/Td Vaccine (2 - Td or Tdap) 07/19/203203/2022 Pneumococcal vaccine <65 Completed 07/05/2023 Zoster Vaccine Completed 09/14/2023, 07/05/2023 Medical Devices Implanted Type Area Research Nurse Device Identifier Shelf Expiration Date Model / Serial / Lot Coloplast Macy [id number] Titan Lock-Out Inflatable Self Contain Fluid Fill Tube Standard Latex Free - Sn/A - [id number] Implanted:Qty: 1 on 11/10/2018 by Rick Gil MD at [facility] Other - see comments N/A: Penis Coloplast Macy 07/11/2023 [id number] / N/A / [id number] Description:Assembly Kit Following select items implanted: Connectors Rear tip extenders Coloplast Macy [id number] Titan Coloplast Lock-Out Inflatable Self Contain Fluid Fill Valve Latex Free - Sn/A - [id number] Implanted:Qty: 1 on 11/10/2018 by Rick Gil MD at [facility] Other - see comments Right: Abdomen Coloplast Macy 08/17/2023 [id number] / N/A / [id number] Description:[place] Coloplast Macy [id number] Titan Coloplast Lock-Out 18cm Pump Set Inflatable Fluid Fill Soft Latex Free - Sn/A - [id number] Implanted:Qty: 1 on 11/10/2018 by Rick Gil MD at [facility] Other - see comments Right: Penis Coloplast Macy 02/13/2023 [id number] / N/A / [id number] Cordis Mynxgrip 5fr Balloon Catheter Integrate Sealant Lock Latex Free [id number] - [id number] Implanted:Qty: 1 on 03/06/2024 by Mat Byrne MD at [facility] 01/18/2026 [id number] / / [id number] Procedures Procedure Name Priority Date/Time Associated Diagnosis Comments SURGICAL PATHOLOGY Routine 09/20/2024 12 :00 AM AIRPLANE CLEANER from Last 3 Months Results * Surgical pathology (09/20/2024 12:00 AM AIRPLANE CLEANER) Skin, excision 09/20/2024 09/21/2024 8:35 AM AIRPLANE CLEANER Narrative 09/25/2024 1:05 PM AIRPLANE CLEANER EPIC results best viewed via link to PDF [facility] [address] [place] [address], [address], [place] [address] [email or web address] Note to Patients: This report may contain [...] REPORTED: 09/25/2024 Submitting Physician Information: Zamzam Plunkett, [facility], [address] [place] [address], DERMATOPATHOLOGY REPORT RESULTS DIAGNOSIS: SKIN, STERNUM, EXCISION: [...] ICD-9 A; ZSD.808 ZSD.1387 Clerical Data A; 40005 The characteristics of special, immunohistochemical, and immunofluorescence stains and in-situ hybridization tests performed by the [facility] were deemed acceptable in ongoing fuel quality tech measures and in compliance with regulations drawn from the Clinical Laboratory Improvement Act pt3218 (CLIA '88). Control reactions for all stains performed were deemed adequate and appropriate by a pathologist prior to evaluation of patient tissue. Some diagnoses were rendered with the assistance of laboratory-developed tests utilizing analyte-specific reagents; the performance characteristic of these tests were determined by [facility] and are not cleared or approved by the [place] Food an Drug administration. Laboratory developed test may only be performed in a facility that is certified by the [facility] as a high-complexity laboratory under CLIA '88. These tests are used for clinical purposes and are not investigational. us Notinfile Unknown LAB PATHOLOGY ORDERABLES Final Result from Last 3 Months Insurance [facility] Care Teams Land Surveying Survey Worker Relationship Specialty Start Date End Date Mark Scott MD [address], [place] [id number] (work) PCP - General 11/10/18
--- OUTSIDE RECORDS SUMMARY | 2024-11-30 00:33 | XMS_ITS | Continuity of Care Document ---
Author Organization [facility] Address [address] [place] [address] [address] [place] [address] Phone Care Team Providers Care Operating Room Assistant Name Role Phone Louann Hernandez Unavailable Unavailable Procedures Procedure Date Eye Exam & Treatment Refraction Advance Directives Directive Yes / No Effective Date File Name No Information Encounters Encounter Description Practice Location Reason(s) For Visit Diagnoses Date Provider Providers Copied on Encounter [facility], [address] [place] [address] [address], [place], [place], [id number], [place] tel:[phone] [facility] No Information [address] , [address], [place], [address], [place]. tel:[phone] Family History Family Member Type Diagnosis Age At Onset No Information Payers Payer name Insurance type Covered libertarian ID Authoriza tion(s) [employer] SOI [id number] Social History Type Description Quantity Date Captured [...]
--- OUTSIDE RECORDS SUMMARY | 2024-11-30 00:33 | XMS_ITS | CONTINUITY OF CARE DOCUMENT ---
Author Name scott chavez Address Unknown Organization [facility] Address [address] [address] [place] [address] Phone [phone] Care Team Providers Care Furniture Finisher Apprentice Name Role Phone Mat Byrne MD Unavailable [phone] Paul Rene MD Unavailable Paul Rene MD Unavailable PROBLEMS Condition Status Date Provider Notes Shortness of breath active Mat Byrne MD COPD active Mat Byrne MD Edema active Mat Byrne MD Hypertension active Mat Byrne MD Tobacco abuse active Mat Byrne MD ENCOUNTERS Date Type Provider Location Encounter Diag nosis 0 - 1 In-person encounter Office Visit Mat Byrne MD [facility] Office 6 - 6 In-person encounter Office Visit Mat Byrne MD [place] [facility] 1 - 1 In-person encounter Office Visit Mat Byrne MD [place] [facility] 2 - 2 In-person encounter Office Visit Mat Byrne MD [place] [facility] 0 - 2 In-person encounter Office Visit Mat Byrne MD [place] [facility] Shortness of breathCOPDEdemaHypertensionTobacco abuse VITAL SIGNS Date Observation Value Provider Body Mass Index (Ratio) 30.06 kg/m2 Mat Byrne MD blood pressure, diastolic 84 mm[Hg] Girma cob t blood pressure, systolic 126 mm[Hg] Miller ob Nacht oxygen saturation, oximetry 98 % [facility] 95 /min Jairo Nacht weight E&M 203.6 [lb_av] Jairo Nacht height E&M 69 [in_i] [facility] Body Mass Index (Ratio) 29.24 kg/m2 Mat Byrne MD blood pressure, diastolic 104 mm[Hg] Malia yla [facility] blood pressure, systolic 168 mm[Hg] Freida la [facility] oxygen saturation, oximetry 95 % Scarlet [facility] weight E&M 198 [lb_av] Scarlet [facility] pulse rate 77 /min Scarlet [facility] blood pressure, cuff size regular Malia campos [facility] height E&M 69 [in_i] Scarlet [facility] Body Mass Index (Ratio) 28.65 kg/m2 Tomás Fernandez blood pressure, diastolic 87 mm[Hg] Girma rret blood pressure, systolic 129 mm[Hg] Jar ret pulse rate 91 /min Arnie y blood pressure, cuff size regular Girma rret oxygen saturation, oximetry 95 % Arnie respiratory rate E&M 16 /min Arnie weight E&M 194 [lb_av] Arnie y height E&M 69 [in_i] Arnie y Body Mass Index (Ratio) 29.24 kg/m2 Tomás Fernandez blood pressure, diastolic 66 mm[Hg] An di Delgado blood pressure, systolic 143 mm[Hg] Any a Danny pulse rate 84 /min Elisha Danny weight E&M 198 [lb_av] Elisha Danny oxygen saturation, oximetry 93 % Elisha Danny blood pressure, cuff size large An ya Danny height E&M 69 [in_i] Elisha Danny Body Mass Index (Ratio) 28.79 kg/m2 Tesha chavarria Soledad blood pressure, cuff size regular Fa [facility] blood pressure, diastolic 115 mm[Hg] Fa [facility] blood pressure, systolic 158 mm[Hg] [facility] 84 /min [facility] oxygen saturation, oximetry 95 % [facility] respiratory rate E&M 14 /min Vani Mackey iller weight E&M 195 [lb_av] [facility] height E&M 69 [in_i] [facility] ALLERGIES Allergy Name Onset Date Reaction Criticality Status CODEINE High Criticality active HISTORY OF MEDICATION USE Medication Status Instructions Dates Provider Indications Com ments hydrochlorothiazide 25 mg tablet active Take 1 tablet by mouth once a day Jairo Recio amlodipine 10 mg tablet active Take 1 t ablet by mouth once a day Jairo Recio losartan 100 mg tablet active TAKE 1 TA BLET BY MOUTH EVERY DAY DIRECTED Mat [place] Ellipta 200-62.5-25 mcg blister with device active INHALE 1 PUFF BY MOUTH EVERY DAY DIRECTED Mat Byrne MD pantoprazole 40 mg tablet,delayed release (DR/EC) active TAKE 1 TABLET BY MOUTH DAILY Mat Byrne MD SOCIAL HISTORY Date Observation Value Provider oral tobacco use per day nicotine patch Maureen Byrne MD chewing tobacco use Current Mat mariscal MD smoking status Current every day smoker Maureen Byrne MD oral tobacco use per day nicotine patch Arthur Fernandez chewing tobacco use Current Ventura beltran smoking status Current every day smoker D rachna Fernandez oral tobacco use per day nicotine patch A ac Delgado chewing tobacco use Current Elisha crenshaw smoking status Current every day smoker A ac Danny smoking status Current every day smoker G saman Rowe oral tobacco use per day nicotine patch F gee Marcelino chewing tobacco use Current [facility] INSURANCE PROVIDERS Payer name Policy type / Coverage type Devol red green party ID [employer] MEDICAID (2) Medicaid [id number] ADVANCE DIRECTIVES Name Date DISCUSSED - NO DECISION MADE TREATMENT PLAN Date Name Performer Cardiology:Monitor B P at home BP today: 168/104 P rior BP: 129/87 (03/12/2024) His updated medication list for this problem includes: Losartan 100 Mg Tablet (Losartan) ..... Take 1 tablet by mouth every day as directed Mat Byrne MD Cardiology:Reviewed cessation Tomasa Byrne MD Cardiology:following pulmonary G erna Byrne MD Cardiology: R +L heart cath were normal and cannot explain SOB. Pulmonary etiology Mat Byrne MD Cardiology:The Patient was reenc ouraged to stop smoking. Ventura Fernandez Cardiology:Bp 129/87 , we will increase losartan to 100 for better BP control. H is updated medication list for this problem includes: Losartan 100 Mg Tablet (Losartan) ..... Take 1 tablet by mouth every day as directed This visit has been a part of the consistent, comprehensive, and ongoing management of the chronic medical condition(s) listed above for the patient. Ventura Fernandez Cardiology Ventura Fernandez Cardiology:R+L heart cath were normal and cannot explain SOB. We will obtain PFT. He is going to see pulmonary organization development consultant on 03/27/2024. Ventura Fernandez Cardiology:He report ed progressive dyspnea with minimal exertion. Per pulmonary organization development consultant, COPD cannot explain his symptoms. We will schedule right and left heart cath to assess for possible CAD and proceed to revascularization if CAD is found. Ventura Fernandez Cardiology: B P today: 143/66 P rior BP: 158/115 (12/21/2023) His updated medication list for this problem includes: Losartan 50 Mg Tablet (Losartan) ..... Take 1 tablet by mouth once daily Ventura Wellingtoneris Cardiology Ventura Fernandez Cardiology:He was reencourraged to stop smoking Ventura Fernandez Cardiology:The Patie nt was reencouraged to stop smoking. Cristóbal Soledad Cardiology Cristóbal Soledad Cardiology:complains of shortness of breath at rest, dyspnea on exertion, orthopnea and edema, O btain echo, routine stress test, and lab work Cristóbal Crespoinari Cardiology:START Los roni 50mg daily for BP control B P today: 158/115 His updated medication list for this problem includes: Losartan 50 Mg Tablet (Losartan) ..... Take 1 tablet by mouth once daily Cristóbal Rowe Date Name DLCO - 84455 FRC - 81039 FVC - 66961 PROTHROMBIN TIME WIT H INR LIPID PANEL CBC (INCLUDES DIFF/P LT) BASIC METABOLIC PANE L W/EGFR CRP, high sensitivit y Lipoprotein (a) LIPID PANEL PROBNP, N TERMINAL Microalb/Creatinine Urine, Random HEMOGLOBIN A1c BASIC METABOLIC PANE L W/EGFR Stress Routine Complete Echo HISTORY OF PROCEDURES Procedure Date Procedure Name Provider Procedure Notes S tatus Complex e/m visit add on Mat Byrne MD completed Complex e/m visit add on Mat Byrne MD completed
--- OUTSIDE RECORDS SUMMARY | 2024-11-30 00:33 | XMS_ITS | Patient Health Record ---
Author Organization [facility] Billing Info Address [address] [place] [id number] Support Name Relationship Address Phone Lan Lucy Emergency Contact [address] [place] [address] Matias Benoit Guarantor Unknown [phone] Reason For Referral No Information Plan Of Treatment No Information
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
--- OUTSIDE RECORDS SUMMARY | 2024-11-30 00:33 | XMS_ITS | Referral Summary ---
Author Organization [facility] Address [address] [place] [address] Care Team Providers Care System Auditor Name Role Phone Mark Scott MD Primary Care Provider [phone]- [phone] Encounters Date Type Department Care Team Description 09/20/2024 Orders Only [facility] [address] [place] [address] Unknown, Notinfile from Last 3 Months Allergies Active Allergy [...] 03/27/2024 Assessment & Plan (08/08/2024 3:04 PM TICKET MAKER): Continue Trelegy Ellipta 200 daily He has [...] is currently in physical therapy, I recommend [place] after this is completed and he is released from his surgeon We have discussed that a return to his previous line of work will be unlikely Recheck PFT and walk testing Cigarette nicotine dependence without complicati on 03/27/2024 Assessment & Plan (08/08/2024 3:04 PM TICKET MAKER): He continues to smoke 1/2 to 3/4 pack cigarettes per day - Smoking cessation counseling and techniques reviewed at length - Avoid triggers and use distraction techniques - He is aware of the [place] Tobacco Quit line: 2-541-HRCO-YES for free services - 5 minutes spent [...] techniques - He is aware of the [place] Tobacco Quit line: 0-045-LIEL-YES for free services - 4 minutes spent discussing cessation He has nicotine patches at home He is due for annual lung cancer screening in December of 2024 Assessment & Plan (03/27/2024 11:43 AM CDT): - Smoking cessation counseling and techniques reviewed at length - Avoid triggers and use distraction techniques - Participate in support groups - Information given regarding [place] Tobacco Quit line: 5-209-FBHR-YES for free services - 4 minutes spent [...] on file Legal Sex Male 11:08 AM TICKET MAKER Gender Identity Not on file Sexual Orientation Not on file Last Filed Vital Signs Vital Sign Reading Time Taken Comments Blood Pressure 130/76 08/08/2024 1:38 PM TICKET MAKER Pulse 93 08/08/2024 1:38 PM TICKET MAKER Temperature 36.5 C (97.7 F) 08/08/2024 1:38 PM TICKET MAKER Respiratory Rate 18 03/06/2024 10:12 AM CDT Oxygen Saturation 94% 08/08/2024 1:38 PM TICKET MAKER Inhaled Oxygen Concentration - - Weight 91.7 kg (202 lb 1.6 oz) 08/08/2024 1:38 P M TICKET MAKER Height 175.3 cm (5' 9 ) 08/08/2024 1:38 PM TICKET MAKER Body Mass Index 29.84 08/08/2024 1:38 PM TICKET MAKER Plan of Treatment Not on file Medical Devices Implanted Type Area Color Dipper Device Identifier Shelf Expiration Date Model / Serial / Lot Coloplast Macy [id number] Titan Lock-Out Inflatable Self Contain Fluid Fill Tube Standard Latex Free - Sn/A - [id number] Implanted:Qty: 1 on 11/10/2018 by Rick Gil MD at [facility] Other - see comments N/A: Penis Coloplast Macy 07/11/2023 [id number] / N/A / [id number] Description:Assembly Kit Following select items implanted: Connectors Rear tip extenders Coloplast Macy [id number] Titan Coloplast Lock-Out Inflatable Self Contain Fluid Fill Valve Latex Free - Sn/A - [id number] Implanted:Qty: 1 on 11/10/2018 by Rick Gil MD at [facility] Other - see comments Right: Abdomen Coloplast Macy 08/17/2023 [id number] / N/A / [id number] Description:[place] Coloplast Macy [id number] Titan Coloplast Lock-Out 18cm Pump Set Inflatable Fluid Fill Soft Latex Free - Sn/A - [id number] Implanted:Qty: 1 on 11/10/2018 by Rick Gil MD at [facility] Other - see comments Right: Penis Coloplast Macy 02/13/2023 [id number] / N/A / [id number] Cordis Mynxgrip 5fr Balloon Catheter Integrate Sealant Lock Latex Free [id number] - [id number] Implanted:Qty: 1 on 03/06/2024 by Mat Byrne MD at [facility] 01/18/2026 [id number] / / [id number] Procedures Procedure Name Priority Date/Time Associated Diagnosis Comments SURGICAL PATHOLOGY Routine 09/20/2024 12 :00 AM TICKET MAKER from Last 3 Months Results * Surgical pathology (09/20/2024 12:00 AM TICKET MAKER) Skin, excision 09/20/2024 09/21/2024 8:35 AM TICKET MAKER Narrative 09/25/2024 1:05 PM TICKET MAKER EPIC results best viewed via link to PDF [facility] [address] [place] [address], [address], [place] [address] [email or web address] Note to Patients: This report [...] REPORTED: 09/25/2024 Submitting Physician Information: Zamzam Plunkett [facility], [address] [place] [address], DERMATOPATHOLOGY REPORT RESULTS DIAGNOSIS: SKIN, STERNUM, EXCISION: [...] ICD-9 A; ZSD.808 ZSD.1387 Clerical Data A; 93442 The characteristics of special, immunohistochemical, and immunofluorescence stains and in-situ hybridization tests performed by the [facility] were deemed acceptable in ongoing corporate quality assurance manager measures and in compliance with regulations drawn from the Clinical Laboratory Improvement Act ry9879 (CLIA '88). Control reactions for all stains performed were deemed adequate and appropriate by a pathologist prior to evaluation of patient tissue. Some diagnoses were rendered with the assistance of laboratory-developed tests utilizing analyte-specific reagents; the performance characteristic of these tests were determined by [facility] and are not cleared or approved by the [place] Food an Drug administration. Laboratory developed test may only be performed in a facility that is certified by the [facility] as a high-complexity laboratory under CLIA '88. These tests are used for clinical purposes and are not investigational. us Notinfile Unknown LAB PATHOLOGY ORDERABLES Final Result from Last 3 Months Insurance [facility] Care Teams System Auditor Relationship Specialty Start Date End Date Mark Scott MD [address] [place] [address] PCP - General 11/10/18
--- OUTSIDE RECORDS SUMMARY | 2024-11-30 00:34 | XMS_ITS | Clinical Summary ---
Author Organization [facility] Herbie Sánchez Address [address] [place] [address] Care Team Providers Care Rubber Press Tender Name Role Phone Unavailable Primary Care Provider Unavailabl e Allergies Active Allergy Reactions Criticality Noted Date Comments Codeine Nausea and Vomiting High 11/06/2018 Medications ASCORBIC ACID, VITAMIN C, ORAL Take by mouth. Active acyclovir (ZOVIRAX) 400 mg tablet TAKE 1 TABLET BY MOUTH DAILY FOR RASH 5 Active albuterol (PROVENTIL,VENTOL IN) 2.5 mg /3 mL (0.083 %) Solution for Nebulization Take 2.5 mg by inhalation. Active amLODIPine (NORVASC) 10 mg tablet amlodipine 10 mg tablet 5 Active cholecalciferol, Vitamin D3, 50 mcg (2,000 unit) Tablet Take 2,000 Units by mouth daily. Active clobetasoL (TEMOVATE) 0.05 % Cream Apply to affected area. 5 Active Trelegy Ellipta 200-62.5-25 mcg Disk with [...] Take 100 mg by mouth daily. Active hydroCHLOROthiazi de 25 mg tablet Take 25 mg by mouth daily. 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 FEEDER Office Visit [facility] Oncology and Hematology - [address] [place] [phone] Markell Godfrey MD Oropharyngeal cancer (CMS/HCC) (Primary Dx) 11/02/2024 Orders Only [facility] - [address] Markell Godfrey MD 10/25/2024 Orders Only [facility] - [address] [place] [id number] Markell Godfrey MD Lymphadenopathy of head and neck region (Primary Dx) 10/18/2024 Orders Only [facility]ology - [address] [place] [phone] Markell Godfrey MD Lymphadenopathy of head and neck region (Primary Dx) 10/18/2024 Orders Only [facility] - [address] [place] [phone] Markell Godfrey MD Lymphadenopathy of head and neck region (Primary Dx); Non-Hodgkin's lymphoma, unspecified body region, unspecified non-Hodgkin lymphoma type (CMS/HCC) 10/16/2024 External Device Data STL ABSTRACTION Provider, Abstract 10/16/2024 External Device Data STL ABSTRACTION Provider, Abstract 10/16/2024 External Device Data STL ABSTRACTION Provider, Abstract 10/15/2024 1:30 PM DYNAMITE PACKING MACHINE FEEDER Office Visit [facility]ology - [address] [place] [address] Markell Godfrey MD Non-Hodgkin's lymphoma, unspecified body [...] Date Smoking Tobacco: Every Day Cigarettes 0.5 50.1 Started: 10/15/1974 Tobacco Cessation:Ready to Q uit: Not Asked; Counseling Given: Not Answered Alcohol Use Standard Drinks/Week Comments Yes 0 (1 standard drink = 0.6 oz pur e alcohol) ONLY DURING HOLIDAYS Sex and Gender Information Value Date Recorded Sex Assigned at Not on file Legal Sex Male 1:20 PM DYNAMITE PACKING MACHINE FEEDER Gender Identity Not on file Sexual Orientation Not on file Last Filed Vital Signs Vital Sign Reading Time Taken Comments Blood Pressure 112/80 11/12/2024 2:56 PM DYNAMITE PACKING MACHINE FEEDER Pulse 105 11/12/2024 2:56 PM DYNAMITE PACKING MACHINE FEEDER Temperature 35.9 C (96.7 F) 11/12/2024 2:56 PM DYNAMITE PACKING MACHINE FEEDER Respiratory Rate 15 11/12/2024 2:56 PM DYNAMITE PACKING MACHINE FEEDER Oxygen Saturation 93% 11/12/2024 2:56 PM DYNAMITE PACKING MACHINE FEEDER Inhaled Oxygen Concentration - - Weight 91.4 kg (201 lb 9.6 oz) 11/12/2024 2:56 P M DYNAMITE PACKING MACHINE FEEDER Height 175.3 cm (5' 9 ) 10/15/2024 1:25 PM DYNAMITE PACKING MACHINE FEEDER Body Mass Index 29.77 10/15/2024 1:25 PM DYNAMITE PACKING MACHINE FEEDER Plan of Treatment Upcoming Encounters Date Type Department Care Team (Late st Contact Info) Description 12/03/2024 4:00 PM CDT Telephone Check Up [facility]ology - [address] [facility] [address] [place] [address] Markell Godfrey MD [address] [facility] [address] [place] [address] Health Maintenance Due Date Last [...] 1-dose series) 2020 INFLUENZA VACCINE (#1) 2024 08/04/2022, 2019 DTAP/TDAP/TD VACCINES (2 - Td or Tdap) 07/19/2032 Procedures Procedure Name Priority Date/Time Associated Diagnosis Comments PATHOLOGY REPORT Routine 11/01/2024 2:33 PM DYNAMITE PACKING MACHINE FEEDER from Last 3 Months Results * PATHOLOGY REPORT (11/01/2024 2:33 PM DYNAMITE PACKING MACHINE FEEDER) Markell Godfrey MD PATHOLOGY/CYTOLOGY ORDERABLES F inal Result from Last [address] [place] [address] [address] MEDICAID
--- OUTSIDE RECORDS SUMMARY | 2024-11-30 00:34 | XMS_ITS | Clinical Summary ---
Author Organization [facility] Address [address] [place] [address] Care Team Providers Care Senior Credit Analyst Name Role Phone Paul Rene MD Primary Care Provider Source Comments [facility],non-owned Affiliates and Associated Physician Practices is amultiple site organization consisting of ambulatory clinics and hospital sitesin [place], [place], [place] and [place]. This disclosure is being madepursuant to the Care Everywhere program and may not contain all information available regarding this patient. Last updated 18.[facility] Allergies Active Allergy Reactions Criticality Noted Date [...] Comments Blood Pressure 145/82 07/21/2022 12:24 PM OFFICE RUNNER Pulse 50 07/21/2022 12:24 PM OFFICE RUNNER Temperature 36.4 C (97.6 F) 07/21/2022 12:24 PM OFFICE RUNNER Respiratory Rate 18 07/21/2022 12:2 4 PM OFFICE RUNNER Oxygen Saturation 91% 07/21/2022 12: 24 PM OFFICE RUNNER Inhaled Oxygen Concentration - - Weight 86.1 kg (189 lb 13.1 oz) 07/20/2022 8:44 PM OFFICE RUNNER Height 173.5 cm (5' 8.31 ) 07/20/2022 8:44 PM CS T Body Mass Index 28.6 07/20/2022 8:44 PM OFFICE RUNNER Plan of Treatment Health Maintenance Due Date [...] 50+ (1 of 2 - PCV) 01/10/1979 ZOSTER VACCINE (1 of 2) 01/10/1979 Respiratory Syncytial Virus (RSV) Vaccine Pt: or over 60 yrs (1 - Risk 60-74 years 1-dose series) 2020 COVID-19 VACCINE (2 - Jansse n risk series) 12/12/2020 11/14/2020 INFLUENZA VACCINE (#1) 2024 0, 08/13/2014 DEPRESSION SCREENING 09/12/2024 SCREENING FOR DIABETES 07/19/2025 07/19/2022 DTAP/TDAP/TD VACCINES (2 - T d or Tdap) 07/19/2032 07/19/2022 HEPATITIS B VACCINE Aged Out No longe r eligible based on patient's age to complete this topic HIB VACCINE Aged Out No longer eligi ble based on patient's age to complete this topic HPV VACCINE Aged Out No longer eligi ble based on patient's age to complete this topic MENINGOCOCCAL (Group B) VACCINE SHARED DECISION-MAKING Aged Out No longer eligible based on patient's age to complete this topic MENINGOCOCCAL GROUPS A/C/Y/W VACCINE Aged Out No longer eligible b ased on patient's age to complete this topic Procedures Procedure Name Priority Date/Time Associated Diagnosis Comments BASIC METABOLIC PANEL (CALCIUM TOTAL) STAT 07/19/2022 3:18 PM OFFICE RUNNER from Last 3 Months or Most Recently Relevant to Health Maintenance Results * (ABNORMAL) BASIC METABOLIC PANEL (CALCIUM TOTAL) (07/19/2022 3:18 PM OFFICE RUNNER) BUN 13 7 - 26 mg/dL 07/19/2022 4:04 PM [facility] Creatinine 1.17(H) 0.71 - 1.16 mg/dL 07/19/2022 4:04 PM [facility] Sodium 140 136 - 145 mmol/L 07/19/2022 4:04 PM [facility] Potassium 3.9 3.5 - 4.5 mmol/L 07/19/2022 4:04 PM [facility] Chloride 108(H) 98 - 107 mmol/L 07/19/2022 4:04 PM [facility] CO2 23 22 - 29 mmol/L 07/19/2022 4:04 PM [facility] Glucose 95 70 - 115 mg/dL 07/19/2022 4:04 PM [facility] Calcium 9.1 8.4 - 10.2 mg/dL 07/19/2022 4:04 PM [facility] Anion Gap 13 8 - 18 07/19/2022 4:04 PM [facility] BUN/Creatinine Ratio 11 7 - 23 07/19/2022 4:04 PM OFFICE RUNNER [facility] Osmolality Calculated 290 270 - 300 mOsm/kg 07/19/2022 4:04 PM OFFICE RUNNER [facility] eGFR by CKD-EPI 70(L) >=90 mL/min/1.7 3 m2 07/19/2022 4:04 PM OFFICE RUNNER [facility] Blood BLOOD SPECIMEN / Unknown Venipuncture / Unknown 07/19/2022 3:18 PM OFFICE RUNNER 07/19/2022 3:36 PM OFFICE RUNNER Teo Steinberg MD LAB - CHEMISTRY ORD ERABLES [facility] [address] [place] [address], [facility] [phone] from Last 3 Months or Most Recently Relevant to Health Maintenance Advance Directives * Full Code (Latest Code Status on File) Date Activated Date Inactivated Comments 07/20/2022 12:23 AM 07/21/2022 6:10 PM Care Teams Senior Credit Analyst Relationship Specialty Start Date End Date Paul Rene MD [address] [place] [id number] PCP - General 07/01/22
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
--- NOTE | 2024-11-30 05:59 | ECG_ITS ---
Test Date: 2024-11-30 06:49:40 Measurements Intervals [place] Rate: 65 P: 40 LA: 197 QRS: 38 QRSD: 100 T: 42 QT: 407 QTc: 425 Interpretive Statements SINUS RHYTHM No previous ECG available for comparison Electronically Signed On 11-30-2024 18:32:[address] Barrientos M.D.
[2024-11-30] MEDS: LACTATED RINGERS 1,000 ML 30 ML IV CONT (06:30)
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
--- NOTE | 2024-11-30 07:12 | WPDHPUPDATE1 ---
History and Physical Update Update Date/Time: 11/30/24 07:12 History and Physical has been reviewed, including an updated exam of the patient. There are NO changes in the patient's condition. Risks, benefits, and alternatives have been discussed and questions answered. Patient agrees to proceed with procedure.
[2024-11-30] MEDS: EPINEPHrine HCL INJ 1 MG/ML AMPUL IRRIGATION (07:44)
--- NOTE | 2024-11-30 08:00 | SUR.OPER ---
Fresh Orophayngeal specimen sent with STEFANY Gao and received in pathology by Serena
--- NOTE | 2024-11-30 08:11 | P.OP_ITS ---
Procedure Note - Detailed Date of Procedure 11/30/24 Pre-op Diagnosis Right side oropharyngeal mass (tonsil fossa) Post-op Diagnosis Same Procedure Performed Direct laryngoscopy and right oropharyngeal mass biopsy Surgeon Ramila Shaffer MD Anesthesia General Indications Right oropharyngeal mass Findings 1-mass originating from the right tonsillar fossa Description of Procedure The patient was seen in the preoperative area. Informed consent was checked and confirmed. The patient was taken to the operating room, sedated and placed under general anesthesia using an endotracheal tube. Eyes were taped and was prepped and draped in the usual sterile fashion, then appropriately positioned for planned surgical procedure. [place] Gar[place] mouth gag was used to expose the oropharynx, a mass ? was noted in the right tonsil fossa ,which was biopsied and sent for pathology exam,left side tongue base biopsy was done using cup forceps . Using laryngoscope which was introduced through the oral cavity to oropharynx then to hypopharynx, right side vocal cord biopsy was taken using cup forceps, the raw area? of the vocal cord was covered by neighboring mucosal flap ,l,,no bleeding was noted and the rest of the hypopharynx was free of any other lesions. Laryngoscope was removed without any apparent injury to the hypopharynx, oropharynx, oral cavity, or teeth. Patient was turned to anesthesia for awakening. Drains No Packing No Pathology Yes (right side tonsil fossa ,right side vocal cord, left side tongue base ) Complications No immediate complications Condition Stable Disposition PACU [facility] Billing Surgery - Charge Forward: Surgery Billing
[2024-11-30] MEDS: oxyCODONE HCL (*CRX) 5 MG TAB IR PO (09:06)
== END 2024-11-30 09:17 | disposition home or self-care (01) ==
PROVIDERS: PCP Family Medicine; Visit Provider Otolaryngology Otolaryngology/Facial Plastic Surgery
PROC: 0CJS8ZZ Inspection of Larynx, Via Natural or Artificial Opening Endoscopic (ICD-10-PCS; CPT 31535; principal; 2024-11-30 07:30)
DX: C09.0 Malignant neoplasm of tonsillar fossa (principal); F17.210 Nicotine dependence, cigarettes, uncomplicated
CPT/HCPCS: 31535; 41105; 42800; 88304; 88305; 93005; A9270; J0171; J0330; J1100; J2405; J2704; J3010; J7120

== ENCOUNTER → 2024-12-04 11:44 | Outpatient (REF) | payer OTHER, SELFPAY ==
--- OUTSIDE RECORDS SUMMARY | 2024-12-04 13:57 | XMS_ITS | Clinical Summary ---
Author Organization [facility] Address [address] [place] [address] Care Team Providers Care Broomcorn Press Feeder Name Role Phone Mark Scott MD Primary Care Provider [phone] Allergies Active Allergy Reactions Criticality Noted Date [...] (40 mg total) by mouth daily Active Trelegy Ellipta 200-62.5-25 mcg inhaler INHALE 1 PUFF DAILY DIRECTED 180 each 1 5 Active Active Problems Problem Noted Date Diagnosed Date Centrilobular emphysema 03/27/2024 Assessment & Plan (08/08/2024 3:04 PM RANCH HELPER): Continue Trelegy Ellipta 200 daily He has [...] is currently in physical therapy, I recommend NM after this is completed and he is released from his surgeon We have discussed that a return to his previous line of work will be unlikely Recheck PFT and walk testing Cigarette nicotine dependence without complicati on 03/27/2024 Assessment & Plan (08/08/2024 3:04 PM RANCH HELPER): He continues to smoke 1/2 to 3/4 pack cigarettes per day - Smoking cessation counseling and techniques reviewed at length - Avoid triggers and use distraction techniques - He is aware of the [place] Tobacco Quit line: 0-627-UMZR-YES for free services - 5 minutes spent [...] aware of the [place] Tobacco Quit line: 1-119-EOFK-YES for free services - 4 minutes spent discussing cessation He has nicotine patches at home He is due for annual lung cancer screening in December of 2024 Assessment & Plan (03/27/2024 11:43 AM CDT): - Smoking cessation counseling and techniques reviewed at length - Avoid triggers and use distraction techniques - Participate in support groups - Information given regarding [place] Tobacco Quit line: 4-839-QQKR-YES for free services - 4 minutes spent discussing cessation Continue nicotine patches, order sent today Annual LDCT due 12/2024 Dyspnea 02/22/2024 Encounters Date Type Department Care Team Description 09/20/2024 Orders Only [facility] [address] [place] [address] Unknown, Notinfile from Last 3 Months Surgical [...] on file Legal Sex Male 11:08 AM RANCH HELPER Gender Identity Not on file Sexual Orientation Not on file Obstetrics History Last Filed Vital Signs Vital Sign Reading Time Taken Comments Blood Pressure 130/76 08/08/2024 1:38 PM RANCH HELPER Pulse 93 08/08/2024 1:38 PM RANCH HELPER Temperature 36.5 C (97.7 F) 08/08/2024 1:38 PM RANCH HELPER Respiratory Rate 18 03/06/2024 10:12 AM CDT Oxygen Saturation 94% 08/08/2024 1:38 PM RANCH HELPER Inhaled Oxygen Concentration - - Weight 91.7 kg (202 lb 1.6 oz) 08/08/2024 1:38 P M RANCH HELPER Height 175.3 cm (5' 9 ) 08/08/2024 1:38 PM RANCH HELPER Body Mass Index 29.84 08/08/2024 1:38 PM RANCH HELPER Plan of Treatment Health Maintenance Due Date Last Done Comments Colon Cancer Screening-Colonoscopy 1960 Depression Screening 1960 Hepatitis C Screening 1960 Prostate Cancer Screening-PSA 1960 Hepatitis B Screening 01/10/1978 Regular Well Visit/Exam 18-64 01/10/1978 Lung Cancer Screening 01/10/2010 Covid-19 Vaccine ( season) 05/13/202401/2021 Influenza Vaccine (#1) 2024 2, 06/23/2020, 08/13/2014 DTaP/Tdap/Td Vaccine (2 - Td or Tdap) 07/19/203203/2022 Pneumococcal vaccine <65 Completed 07/05/2023 Zoster Vaccine Completed 09/14/2023, 07/05/2023 Medical Devices Implanted Type Area Java Designer Device Identifier Shelf Expiration Date Model / Serial / Lot Coloplast Macy [id number] Titan Lock-Out Inflatable Self Contain Fluid Fill Tube Standard Latex Free - Sn/A - [id number] Implanted:Qty: 1 on 11/10/2018 by Rick Gil MD at [facility] Other - see comments N/A: Penis Coloplast Macy 07/11/2023 [id number] / N/A / [id number] Description:Assembly Kit Following select items implanted: Connectors Rear tip extenders Coloplast Macy [id number] Titan Coloplast Lock-Out Inflatable Self Contain Fluid Fill Valve Latex Free - Sn/A - [id number] Implanted:Qty: 1 on 11/10/2018 by Rick Gil MD at [facility] Other - see comments Right: Abdomen Coloplast Macy 08/17/2023 [id number] / N/A / [id number] Description:[place] Coloplast Macy [id number] Titan Coloplast Lock-Out 18cm Pump Set Inflatable Fluid Fill Soft Latex Free - Sn/A - [id number] Implanted:Qty: 1 on 11/10/2018 by Rick Gil MD at [facility] Other - see comments Right: Penis Coloplast Macy 02/13/2023 [id number] / N/A / [id number] Cordis Mynxgrip 5fr Balloon Catheter Integrate Sealant Lock Latex Free [id number] - [id number] Implanted:Qty: 1 on 03/06/2024 by Mat Byrne MD at [facility] 01/18/2026 [id number] / / [id number] Procedures Procedure Name Priority Date/Time Associated Diagnosis Comments SURGICAL PATHOLOGY Routine 09/20/2024 12 :00 AM RANCH HELPER from Last 3 Months Results * Surgical pathology (09/20/2024 12:00 AM RANCH HELPER) Skin, excision 09/20/2024 09/21/2024 8:35 AM RANCH HELPER Narrative 09/25/2024 1:05 PM RANCH HELPER [facility] results best viewed via link to PDF [facility] [address] [place] [address], [address], [place] [address] [email or web address] Note to Patients: This report may contain [...] REPORTED: 09/25/2024 Submitting Physician Information: Zamzam Plunkett, [facility], [address] [place] [address], DERMATOPATHOLOGY REPORT RESULTS DIAGNOSIS: SKIN, STERNUM, EXCISION: [...] ICD-9 A; ZSD.808 ZSD.1387 Clerical Data A; 04936 The characteristics of special, immunohistochemical, and immunofluorescence stains and in-situ hybridization tests performed by the [facility] were deemed acceptable in ongoing senior quality manager measures and in compliance with regulations drawn from the Clinical Laboratory Improvement Act yh3144 (CLIA '88). Control reactions for all stains performed were deemed adequate and appropriate by a pathologist prior to evaluation of patient tissue. Some diagnoses were rendered with the assistance of laboratory-developed tests utilizing analyte-specific reagents; the performance characteristic of these tests were determined by [facility] and are not cleared or approved by the [place] Food an Drug administration. Laboratory developed test may only be performed in a facility that is certified by the [facility] as a high-complexity laboratory under CLIA '88. These tests are used for clinical purposes and are not investigational. us Notinfile Unknown LAB PATHOLOGY ORDERABLES Final Result from Last 3 Months Insurance [facility] Care Teams Broomcorn Press Feeder Relationship Specialty Start Date End Date Mark Scott MD [address] [place] [address] PCP - General 11/10/18
--- OUTSIDE RECORDS SUMMARY | 2024-12-04 13:57 | XMS_ITS | CONTINUITY OF CARE DOCUMENT ---
Author Name scott chavez Address Unknown Organization [facility] Address [address] [place] [address] Phone [phone] Care Team Providers Care Fuel Manager Name Role Phone Mat Byrne MD Unavailable [phone] Paul Rene MD Unavailable Paul Rene MD Unavailable [phone] PROBLEMS Condition Status Date Provider Notes Shortness of breath active Mat Byrne MD COPD active Mat Byrne MD Edema active Mat Byrne MD Hypertension active Mat Byrne MD Tobacco abuse active Mat Byrne MD ENCOUNTERS Date Type Provider Location Encounter Diag nosis 0 - 1 In-person encounter Office Visit Mat Byrne MD [facility] Office 6 - 6 In-person encounter Office Visit Mat Byrne MD [place] [facility] 1 - 1 In-person encounter Office Visit Mat Byrne MD [place] [facility] 2 - 2 In-person encounter Office Visit Mat Byrne MD [place] [facility] 0 - 2 In-person encounter Office Visit Mat Byrne MD [place] [facility] Shortness of breathCOPDEdemaHypertensionTobacco abuse VITAL SIGNS Date Observation Value Provider Body Mass Index (Ratio) 30.06 kg/m2 Mat Byrne MD blood pressure, diastolic 84 mm[Hg] Girma cob t blood pressure, systolic 126 mm[Hg] Miller ob Nacht oxygen saturation, oximetry 98 % [facility] pulse [facility] 95 /min Jairo Nacht weight E&M 203.6 [lb_av] Jairo [place] height E&M 69 [in_i] [facility] Body Mass Index (Ratio) 29.24 kg/m2 Mat Byrne MD blood pressure, diastolic 104 mm[Hg] Malia yla [facility] blood pressure, systolic 168 mm[Hg] Freida la [facility] oxygen saturation, oximetry 95 % Scarlet [facility] weight E&M 198 [lb_av] Scarlet [facility] pulse rate 77 /min Scarlet [facility] blood pressure, cuff size regular Malia campos [facility] height E&M 69 [in_i] Scarlet [facility] Body Mass Index (Ratio) 28.65 kg/m2 Tomás [...] blood pressure, cuff size regular Fa [facility] blood pressure, diastolic 115 mm[Hg] Fa [facility] blood pressure, systolic 158 mm[Hg] [facility] pulse rate 84 /min [facility] oxygen saturation, oximetry 95 % [facility] respiratory rate E&M 14 /min Vani Mackey iller weight E&M 195 [lb_av] [facility] height E&M 69 [in_i] [facility] ALLERGIES Allergy Name Onset Date Reaction Criticality [...] F gee Marcelino chewing tobacco use Current [facility] INSURANCE PROVIDERS Payer name Policy type / Coverage type [place] red green party ID [place] MEDICAID (2) Medicaid [id number] ADVANCE DIRECTIVES Name Date DISCUSSED - NO [...] PFT. He is going to see pulmonary healthcare management consultant on 03/27/2024. Ventura Fernandez Cardiology:He report ed progressive dyspnea with minimal exertion. Per pulmonary healthcare management consultant, COPD cannot explain his symptoms. We [...] daily Cristóbal Rowe Date Name DLCO - [id number] FRC - [id number] FVC - [id number] PROTHROMBIN TIME WIT H INR LIPID PANEL [...]
--- OUTSIDE RECORDS SUMMARY | 2024-12-04 13:57 | XMS_ITS | Referral Summary ---
Author Organization [facility] Address [address] [place] [address] Care Team Providers Care Oil Boiler Name Role Phone Mark Scott MD Primary Care Provider [phone] Encounters Date Type Department Care Team Description 09/20/2024 Orders Only [facility] [address] [place] [address] Unknown, Notinfile from Last 3 Months Allergies [...] 03/27/2024 Assessment & Plan (08/08/2024 3:04 PM MEDICAL INFORMATION SPECIALIST): Continue Trelegy Ellipta 200 daily He has [...] is currently in physical therapy, I recommend PA after this is completed and he is released from his surgeon We have discussed that a return to his previous line of work will be unlikely Recheck PFT and walk testing Cigarette nicotine dependence without complicati on 03/27/2024 Assessment & Plan (08/08/2024 3:04 PM MEDICAL INFORMATION SPECIALIST): He continues to smoke 1/2 to 3/4 pack cigarettes per day - Smoking cessation counseling and techniques reviewed at length - Avoid triggers and use distraction techniques - He is aware of the [place] Tobacco Quit line: 3-246-SMKL-YES for free services - 5 minutes spent [...] techniques - He is aware of the [place] Tobacco Quit line: 4-047-XGDJ-YES for free services - 4 minutes spent discussing cessation He has nicotine patches at home He is due for annual lung cancer screening in December of 2024 Assessment & Plan (03/27/2024 11:43 AM CDT): - Smoking cessation counseling and techniques reviewed at length - Avoid triggers and use distraction techniques - Participate in support groups - Information given regarding [place] Tobacco Quit line: 3-166-CPGH-YES for free services - 4 minutes spent [...] on file Legal Sex Male 11:08 AM MEDICAL INFORMATION SPECIALIST Gender Identity Not on file Sexual Orientation Not on file Last Filed Vital Signs Vital Sign Reading Time Taken Comments Blood Pressure 130/76 08/08/2024 1:38 PM MEDICAL INFORMATION SPECIALIST Pulse 93 08/08/2024 1:38 PM MEDICAL INFORMATION SPECIALIST Temperature 36.5 C (97.7 F) 08/08/2024 1:38 PM MEDICAL INFORMATION SPECIALIST Respiratory Rate 18 03/06/2024 10:12 AM CDT Oxygen Saturation 94% 08/08/2024 1:38 PM MEDICAL INFORMATION SPECIALIST Inhaled Oxygen Concentration - - Weight 91.7 kg (202 lb 1.6 oz) 08/08/2024 1:38 P M MEDICAL INFORMATION SPECIALIST Height 175.3 cm (5' 9 ) 08/08/2024 1:38 PM MEDICAL INFORMATION SPECIALIST Body Mass Index 29.84 08/08/2024 1:38 PM MEDICAL INFORMATION SPECIALIST Plan of Treatment Not on file Medical Devices Implanted Type Area Home Based Assistant Device Identifier Shelf Expiration Date Model / Serial / Lot Coloplast Macy [id number] Titan Lock-Out Inflatable Self Contain Fluid Fill Tube Standard Latex Free - Sn/A - [id number] Implanted:Qty: 1 on 11/10/2018 by Rick Gil MD at [facility] Other - see comments N/A: Penis Coloplast Macy 07/11/2023 [id number] / N/A / [id number] Description:Assembly Kit Following select items implanted: Connectors Rear tip extenders Coloplast Macy [id number] Titan Coloplast Lock-Out Inflatable Self Contain Fluid Fill Valve Latex Free - Sn/A - [id number] Implanted:Qty: 1 on 11/10/2018 by Rick Gil MD at [facility] Other - see comments Right: Abdomen Coloplast Macy 08/17/2023 [id number] / N/A / [id number] Description:[place] Coloplast Macy [id number] Titan Coloplast Lock-Out 18cm Pump Set Inflatable Fluid Fill Soft Latex Free - Sn/A - [id number] Implanted:Qty: 1 on 11/10/2018 by Rick Gil MD at [facility] Other - see comments Right: Penis Coloplast Macy 02/13/2023 [id number] / N/A / [id number] Cord Mynxgrip 5fr Balloon Catheter Integrate Sealant Lock Latex Free [id number] - [id number] Implanted:Qty: 1 on 03/06/2024 by Mat Byrne MD at [facility] 01/18/2026 [id number] / / [id number] Procedures Procedure Name Priority Date/Time Associated Diagnosis Comments SURGICAL PATHOLOGY Routine 09/20/2024 12 :00 AM MEDICAL INFORMATION SPECIALIST from Last 3 Months Results * Surgical pathology (09/20/2024 12:00 AM MEDICAL INFORMATION SPECIALIST) Skin, excision 09/20/2024 09/21/2024 8:35 AM MEDICAL INFORMATION SPECIALIST Narrative 09/25/2024 1:05 PM MEDICAL INFORMATION SPECIALIST EPIC results best viewed via link to PDF [facility] [address] [place] [address], [address], [place] [address] [email or web address] Note to Patients: This report [...] REPORTED: 09/25/2024 Submitting Physician Information: Zamzam Plunkett [facility], [address] [place] [address], DERMATOPATHOLOGY REPORT RESULTS DIAGNOSIS: SKIN, STERNUM, EXCISION: [...] ICD-9 A; ZSD.808 ZSD.1387 Clerical Data A; 39466 The characteristics of special, immunohistochemical, and immunofluorescence stains and in-situ hybridization tests performed by the [facility] were deemed acceptable in ongoing quality reviewer measures and in compliance with regulations drawn from the Clinical Laboratory Improvement Act fv3221 (CLIA '88). Control reactions for all stains performed were deemed adequate and appropriate by a pathologist prior to evaluation of patient tissue. Some diagnoses were rendered with the assistance of laboratory-developed tests utilizing analyte-specific reagents; the performance characteristic of these tests were determined by [facility] and are not cleared or approved by the [place] Food an Drug administration. Laboratory developed test may only be performed in a facility that is certified by the [facility] as a high-complexity laboratory under CLIA '88. These tests are used for clinical purposes and are not investigational. us Notinfile Unknown LAB PATHOLOGY ORDERABLES Final Result from Last 3 Months Insurance [facility] Care Teams Oil Boiler Relationship Specialty Start Date End Date Mark Scott MD [address] [place] [address] PCP - General 11/10/18
--- OUTSIDE RECORDS SUMMARY | 2024-12-04 13:57 | XMS_ITS | Clinical Summary ---
Author Organization [facility] Herbie asencio Cosmo Address [address] [place] [address] Care Team Providers Care Oil Driller Name Role Phone Unavailable Primary Care Provider [...] Encounters Date Type Department Care Team Description 12/03/2024 4:00 PM CDT Office Visit [facility] Oncology and Hematology - [address] Markell Godfrey MD Oropharyngeal cancer (CMS/HCC) (Primary Dx) 11/20/2024 Chart Note Ventura Grant [facility] Radiation Therapy [address] [place] [address] Quinten Serrano MD 11/12/2024 2:45 PM NITROGLYCERIN SUPERVISOR Office Visit [facility] Oncology and Hematology - [address] [place] [phone] Markell Godfrey MD Oropharyngeal cancer (CMS/HCC) (Primary Dx) 11/02/2024 Orders Only [facility] Oncology and Hematology - [address] [place] [id number] Markell Godfrey MD 10/25/2024 Orders Only [facility] Oncology and Hematology - [address] Markell Godfrey MD Lymphadenopathy of head and neck region (Primary Dx) 10/18/2024 Orders Only [facility] Oncology and Hematology - [address] Markell Godfrey MD Lymphadenopathy of head and neck region (Primary Dx) 10/18/2024 Orders Only [facility] Oncology and Hematology - [address] Markell Godfrey MD Lymphadenopathy of head and neck region (Primary Dx); Non-Hodgkin's lymphoma, unspecified body region, unspecified non-Hodgkin lymphoma type (CMS/HCC) 10/16/2024 External Device Data STL ABSTRACTION Provider, Abstract 10/16/2024 External Device Data STL ABSTRACTION Provider, Abstract 10/16/2024 External Device Data STL ABSTRACTION Provider, Abstract 10/15/2024 1:30 PM NITROGLYCERIN SUPERVISOR Office Visit [facility] Oncology and Hematology - [address] [place] [phone] Markell Godfrey MD Non-Hodgkin's lymphoma, unspecified body [...] Types Packs/Day Years Used Date Smoking Tobacco: Former Cigarettes 0.5 50.1 0 10/15/1974 - 11/30/2024 Alcohol Use Standard Drinks/Week Comments Yes 0 (1 standard drink = 0.6 oz pur e alcohol) ONLY DURING HOLIDAYS Sex and Gender Information Value Date Recorded Sex Assigned at Not on file Legal Sex Male 1:20 PM NITROGLYCERIN SUPERVISOR Gender Identity Not on file Sexual Orientation Not on file Last Filed Vital Signs Vital Sign Reading Time Taken Comments Blood Pressure 132/77 12/03/2024 3:24 PM CDT Pulse 101 12/03/2024 3:24 PM CDT Temperature 36.4 C (97.6 F) 12/03/2024 3:24 PM CDT Respiratory Rate 15 12/03/2024 3:24 PM CDT Oxygen Saturation 93% 12/03/2024 3:24 PM CDT Inhaled Oxygen Concentration - - Weight 89.5 kg (197 lb 6.4 oz) 12/03/2024 3:24 P M CDT Height 175.3 cm (5' 9 ) 10/15/2024 1:25 PM NITROGLYCERIN SUPERVISOR Body Mass Index 29.15 10/15/2024 1:25 PM NITROGLYCERIN SUPERVISOR Plan of Treatment Upcoming Encounters Date Type Department Care Team (Late st Contact Info) Description 01/28/2025 10:00 AM CDT Office Visit [facility] Oncology and Hematology - Luis [address] [facility] [address] [place] [address] Markell Godfrey MD [address] [facility] [address] [place] [address] Health Maintenance Due Date Last [...] Comments PATHOLOGY REPORT Routine 11/01/2024 2:33 PM NITROGLYCERIN SUPERVISOR from Last 3 Months Results * PATHOLOGY REPORT (11/01/2024 2:33 PM NITROGLYCERIN SUPERVISOR) Markell Godfrey MD PATHOLOGY/CYTOLOGY ORDERABLES F inal Result from Last [address] [place] [place] [address] MEDICAID
--- OUTSIDE RECORDS SUMMARY | 2024-12-04 13:57 | XMS_ITS | Encounter Summary ---
Author Organization [facility] [employer] Address [address] [place] [address] Care Team Providers Care Referral Nurse Name Role Phone Unavailable Primary Care Provider Unavailabl e Reason for Visit * Reason Comments Cancer Follow Up Encounter Details Date Type Department Care Team ([facility] st Contact Info) Description 12/03/2024 4:00 PM CDT Office Visit [facility] Oncology and Hematology - Luis [address] [facility] [address] [place] [address] Markell Godfrey MD [address] [facility] [address] [place] [address] Oropharyngeal cancer (CMS/HCC) (Primary Dx) Social History Tobacco Use Types Packs/Day Years Used Date Smoking Tobacco: Former Cigarettes 0.5 50.1 0 10/15/1974 - 11/30/2024 Alcohol Use Standard Drinks/Week Comments Yes 0 (1 standard drink = 0.6 oz pur e alcohol) ONLY DURING HOLIDAYS Sex and Gender Information Value Date Recorded Sex Assigned at Not on file Legal Sex Male 1:20 PM DINNER COOK Gender Identity Not on file Sexual Orientation Not on file documented as of this encounter Last Filed Vital Signs Vital Sign Reading [...] oz) 12/03/2024 3:24 P M CDT Height - - Body Mass Index 29.15 10/15/2024 1:25 PM DINNER COOK documented in this encounter Progress Notes * Markell Godfrey MD - 12/03/2024 3:24 PM CDT HEMATOLOGY / ONCOLOGY PROGRESS NOTE Patient Identification: Name: Matias Benoit Age: 64 y.o. 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 CURRENT TREATMENT Expectant TREATMENT HISTORY SUBJECTIVE Patient came to the office for follow-up visit after ENT appointment. He has already seen radiationoncologist. He has no new complaints. Review of system Constitutional: Patient did not mention fevers, sweats, fatigue, malaise, weight loss HEENT: Patient did not mention sinus congestion, hearing or vision problems Respiratory: Patient did not mention cough, dyspnea, wheeze Cardiovascular: Patient did not mention chest pain, exertional chest pressure/discomfort, nausea, syncope, shortness of breath GI: Patient did not mention constipation, diarrhea, dsyphagia, reflux symptoms, vomiting, melena : Patient did not mention dysuria, frequency, incontinence, urgency Integumentary system: no lymphadenopathy, sweats, flushing Musculoskeletal: Patient not mention: myalgia, arthralgia Neurological: Patient did not mention blurry or disturbed vision, numbness/weakness, dizziness Skin: No lumps, bumps or rashes. 12 point review of system was reviewed Objective: Vital signs in last 24 hours: As per nursing note Exam: General appearance: alert, cooperative, no distress, appears stated age Head: normocephalic, without obvious abnormality, atraumatic Eyes: conjunctivae/corneas clear, EOM's intact Ears: normal external ear canals AU Nose: Nares normal. Septum midline. Mucosa normal. No drainage or sinus tenderness Throat: Lips, mucosa, and tongue normal. Teeth and gums normal Neck: supple, symmetrical, trachea midline. Lungs: clear to auscultation bilaterally Heart: regular rate and rhythm, S1, S2 normal, no murmur, click, rub or gallop Abdomen: soft, non-tender. Bowel sounds normal. No masses, No organomegaly Extremities: extremities normal, atraumatic, no cyanosis or edema Skin: Skin color, texture, turgor normal. No rashes or lesions Lymph nodes: No lymphadenopathy Neuro: No obvious focal deficit Exam as above PATH LABS @IMAGEIMP@ Assessment: Plan: There are no active problems to display for this patient. 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 Likely T1 and 1 M0 stage I disease. PET scan done on October 25 showed right internal jugular chain lymphadenopathy with increased activity with SUV of 14.9 measures 2.1 x 1.8 cm along with mucosal thickening in the oropharynx on the right with increased activity likely the primary site. Patient had right oropharyngeal mass and right-sided tonsillar fossa mass biopsy done on November 30 came back positive for squamous cell carcinoma. I have discussed this case with the radiation oncologist today. He will receive definitive radiation therapy treatment based on the NCCN guidelines for single ipsilateral lymph node of less than 3 cmsize, N1 disease. I plan to see him back in 6 to 7 weeks. 12/03/2024 Markell Godfrey MD documented in this encounter Plan of Treatment Upcoming Encounters Date Type Department Care Team (Late st Contact Info) Description 01/28/2025 10:00 AM CDT Office Visit [facility] Oncology and Hematology [facility] [address] [facility] [address] [place] [address] Markell Godfrey MD [address] [facility] [address] [place] [address] Scheduled Orders Name Type Priority Associated Diagnoses Orde r Schedule CBC WITH DIFFERENTIAL Lab Stat Oropharyngeal cancer (CMS/HCC) Expected: 01/21/2025, Expires: 12/03/2025 COMPREHENSIVE METABOLIC PANEL Lab Stat Oropharyngeal cancer (CMS/HCC) Expected: 01/21/2025, Expires: 12/03/2025 documented as of this encounter Visit Diagnoses Diagnosis Oropharyngeal cancer (CMS/HCC)- Primary Malignant neoplasm of oropharynx, unspecified site documented in this encounter
--- OUTSIDE RECORDS SUMMARY | 2024-12-04 13:57 | XMS_ITS | Clinical Summary ---
Author Organization [facility] [employer] Address [address] [place] [address] Care Team Providers Care Division Traffic Superintendent Name Role Phone Paul Rene MD Primary Care Provider Source Comments [facility] [employer],non-owned Affiliates and Associated Physician Practices is amultiple site organization consisting of ambulatory clinics and hospital sitesin [place], [place], [place] and [place]. This disclosure is being madepursuant to the Care Everywhere program and may not contain all information available regarding this patient. Last updated 18.[facility] [employer] Allergies Active Allergy Reactions Criticality Noted Date [...] Comments Blood Pressure 145/82 07/21/2022 12:24 PM SET UP MECHANIC AUTOMATIC LINE Pulse 50 07/21/2022 12:24 PM SET UP MECHANIC AUTOMATIC LINE Temperature 36.4 C (97.6 F) 07/21/2022 12:24 PM SET UP MECHANIC AUTOMATIC LINE Respiratory Rate 18 07/21/2022 12:2 4 PM SET UP MECHANIC AUTOMATIC LINE Oxygen Saturation 91% 07/21/2022 12: 24 PM SET UP MECHANIC AUTOMATIC LINE Inhaled Oxygen Concentration - - Weight 86.1 kg (189 lb 13.1 oz) 07/20/2022 8:44 PM SET UP MECHANIC AUTOMATIC LINE Height 173.5 cm (5' 8.31 ) 07/20/2022 8:44 PM CS T Body Mass Index 28.6 07/20/2022 8:44 PM SET UP MECHANIC AUTOMATIC LINE Plan of Treatment Health Maintenance Due Date [...] PANEL (CALCIUM TOTAL) STAT 07/19/2022 3:18 PM SET UP MECHANIC AUTOMATIC LINE from Last 3 Months or Most Recently Relevant to Health Maintenance Results * (ABNORMAL) BASIC METABOLIC PANEL (CALCIUM TOTAL) (07/19/2022 3:18 PM SET UP MECHANIC AUTOMATIC LINE) BUN 13 7 - 26 mg/dL 07/19/2022 4:04 PM [facility] Creatinine 1.17(H) 0.71 - 1.16 mg/dL 07/19/2022 4:04 PM [facility] Sodium 140 136 - 145 mmol/L 07/19/2022 4:04 PM [facility] Potassium 3.9 3.5 - 4.5 mmol/L 07/19/2022 4:04 PM [facility] Chloride 108(H) 98 - 107 mmol/L 07/19/2022 4:04 PM [facility] CO2 23 22 - 29 mmol/L 07/19/2022 4:04 PM [facility] Glucose 95 70 - 115 mg/dL 07/19/2022 4:04 PM [facility] Calcium 9.1 8.4 - 10.2 mg/dL 07/19/2022 4:04 PM [facility] Anion Gap 13 8 - 18 07/19/2022 4:04 PM [facility] BUN/Creatinine Ratio 11 7 - 23 07/19/2022 4:04 PM SET UP MECHANIC AUTOMATIC LINE [facility] Osmolality Calculated 290 270 - 300 mOsm/kg 07/19/2022 4:04 PM SET UP MECHANIC AUTOMATIC LINE [facility] eGFR by CKD-EPI 70(L) >=90 mL/min/1.7 3 m2 07/19/2022 4:04 PM SET UP MECHANIC [employer]OMAT[employer] LINE [facility] Blood BLOOD SPECIMEN / Unknown Venipuncture / Unknown 07/19/2022 3:18 PM SET UP MECHANIC AUTOMATIC LINE 07/19/2022 3:36 PM SET UP MECHANIC AUTOMATIC LINE Teo Steinberg MD LAB - CHEMISTRY ORD ERABLES [facility] [address] [place] [address], [facility] [phone] from Last 3 Months or Most Recently Relevant to Health Maintenance Advance Directives * Full Code (Latest Code Status on File) Date Activated Date Inactivated Comments 07/20/2022 12:23 AM 07/21/2022 6:10 PM Care Teams Division Traffic Superintendent Relationship Specialty Start Date End Date Paul Rene MD [address] [place] [id number] PCP - General 07/01/22
== END ==
LOC: ANHLAB 11:44
PROVIDERS: PCP Family Medicine; Visit Provider Plastic Surgery
DX: C44.329 Squamous cell carcinoma of skin of other parts of face (principal)
CPT/HCPCS: 88305

== ENCOUNTER → 2024-12-10 08:51 | Outpatient (REF) | payer MEDICARE, MEDICAID, SELFPAY ==
--- OUTSIDE RECORDS SUMMARY | 2024-12-10 09:23 | XMS_ITS | Continuity of Care Document ---
Author Organization [facility] Address [address] [place] [address] Phone Care Team Providers Care Oil Mixer Name Role Phone Drew WEIR, Usman Unavailable [...] Providers Copied on Encounter [facility], [address], [place], [address], [place] tel:[phone] [facility] Lesion of ulnar nerve, left upper limb 3 Drew Mary. [address], [place], [address]. tel:[phone] OFFICE/OUTPA TIENT VISIT EST [facility], [address], [place], [address], [place] tel:[phone] [facility] Cubital tunnel syndrome, leftBody mass index [BMI] 28.0-28.9, adult - 3 Pinnamaneni Usman. [address], [place], [address]. tel:[phone] Referring Provider: Miguel Rene, Y[address] [facility] [address], [place], [address]. tel:[phone] OFFICE/OUTPA TIENT VISIT EST [facility], [address], [place], [address], [place] tel:[phone] [facility] S/P right rotator cuff repair 3 Cezar Wyman. [address], [place], [address]. tel:[phone] Referring Provider: Miguel Rene, [address] [facility] [address], [place], [address]. tel:[phone] [facility], [address], [place], [address], [place] tel:[phone] [facility] S/P right rotator cuff repair 3 Pinn[address] Usman. [address], [place], [address]. tel:[phone] Referring Provider: Miguel Rene, [address] [facility] [address], [place], [address]. tel:[phone] [facility], [address], [place], [address], [place] tel:[phone] [facility] No Information 3 Pinnamaneni Usman. [address], [place], [address]. tel:[phone] [facility], [address], [place], [address], [place] tel:[phone] [facility] S/P right rotator cuff repair 3 Cezar Wyman. [address], [place], [address]. tel:[phone] Referring Provider: Miguel Rene [address] [place] [address] [address], [place], [address]. tel:[phone] [facility], [address], [place], [address], [place] tel:[phone] [facility] S/P right rotator cuff repair 3 Cezar Wyman. [address], [place], [address]. tel:[phone] Referring Provider: Miguel Rene, [address] [facility] [address], [place], [address]. tel:[phone] [facility], [address], [place], [address], [place] tel:[phone] [facility] S/P right rotator cuff repair 3 Drew Mary. [address], [place], [address]. tel:[phone] [facility], [address] [address], [place], [address], [place] tel:[phone] [facility] Complete tear of right rotator cuff, unspecified whether traumaticRigh t bicipital tenosynovitis Degenerative superior labral jcwutsty-rb-h osterior (SLAP) tear of right shoulderOther sprain of right shoulder joint, initial encounterStra in of muscle, fascia and tendon of long head of biceps, right arm, initial encounterImpi ngement syndrome of right shoulderOsteo phyte, right shoulder 3 Drew Mary. [address], [place], [address]. tel:[phone] [facility], [address], [place], [address], [place] tel:[phone] [facility] Incomplete tear of right rotator cuff, unspecified whether traumatic 3 Drew Mary. [address], [place], [address]. tel:[phone] [facility], [address] [address], [place], [address], [place] tel:[phone] [facility] Incomplete tear of right rotator cuff, unspecified whether traumaticBody mass index [BMI] 28.0-28.9, adult 3 Drew Mary. [address], [place], [address]. tel:[phone] Referring Provider: Miguel Rene, [address] [place] [address] [address], [place], [address]. tel:[phone] Family History Family Member Type Diagnosis Age At Onset No Information Payers Payer name Insurance type Covered green party ID [place] rosado(s) [facility] [employer] [facility] OT [id number] Social History Type Description Quantity Date [...]
--- OUTSIDE RECORDS SUMMARY | 2024-12-10 09:23 | XMS_ITS ---
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 Centrilobular emphysema 03/27/2024 Assessment & Plan (12/05/2024 3:47 PM CDT): Continue Trelegy Ellipta 200 daily He has good bronchodilator response on pulmonary function testing I do not have a recent CBC to assess eosinophilia however he has done well on this dose without frequent pneumonias. Continue albuterol as needed only, we have discussed indications for use I continue to recommend pulmonary rehab after physical therapy is completed I filled out his papers for insurance I have sent an order for a new nebulizer today We have discussed signs and symptoms that would require earlier evaluation or change to his plan of care Assessment & Plan (08/08/2024 3:04 PM FIBROUS PLASTERER): Continue Trelegy Ellipta 200 daily He has [...] is currently in physical therapy, I recommend [place] after this is completed and he is released from his surgeon We have discussed that a return to his previous line of work will be unlikely Recheck PFT and walk testing Cigarette nicotine dependence without complicati on 03/27/2024 Assessment & Plan (12/05/2024 3:46 PM CDT): He continues to smoke 1-2 cigarettes per day - Smoking cessation counseling and techniques reviewed at length - Avoid triggers and use distraction techniques - He is aware of the [place] Tobacco Quit line: 2-219-PAPW-YES for free services - 5 minutes spent discussing cessation He has nicotine patches at home and I have ordered several of each strength for him. He is only smoking one per day - he has not smoked today at all. He is due for annual lung cancer screening in December of 2024 Assessment & Plan (08/08/2024 3:04 PM FIBROUS PLASTERER): He continues to smoke 1/2 to 3/4 pack cigarettes per day - Smoking cessation counseling and techniques reviewed at length - Avoid triggers and use distraction techniques - He is aware of the [place] Tobacco Quit line: 4-226-ZSNZ-YES for free services - 5 minutes spent [...] techniques - He is aware of the [place] Tobacco Quit line: 8-062-HHXU-YES for free services - 4 minutes spent discussing cessation He has nicotine patches at home He is due for annual lung cancer screening in December of 2024 Assessment & Plan (03/27/2024 11:43 AM CDT): - Smoking cessation counseling and techniques reviewed at length - Avoid triggers and use distraction techniques - Participate in support groups - Information given regarding [place] Tobacco Quit line: 6-352-HJRZ-YES for free services - 4 minutes spent discussing cessation Continue nicotine patches, order sent today Annual LDCT due 12/2024 Dyspnea 02/22/2024 Current Treatment and Therapy Plans No current plan information found. Past Treatment and Therapy Plans No past plan information found. Lifetime Dose Tracking * Chemical Lifetime Dose Automatic Entry Manual Entr y Air kerma at the reference point (Ka,r) 306 mGy 0 mGy 306 mGy
--- OUTSIDE RECORDS SUMMARY | 2024-12-10 09:23 | XMS_ITS | Clinical Summary ---
Author Organization [facility] Address [address] [place] [address] Care Team Providers Care Railroad Dining Car Stewardess Name Role Phone Mark Scott MD Primary Care Provider [phone] Allergies Active Allergy Reactions Criticality Noted Date Comments Codeine Nausea & Vomiting Low 11/06/2018 Medications albuterol HFA (PROVENTIL HFA,VENTOLIN HFA,PROAIR HFA) 90 mcg/actuation inhaler Inhale 2 puffs every 6 (six) hours as needed for wheezing Active multivitamin tabletIndicati ons:Vitamin Deficiency Prevention Take 1 tablet by mouth daily Active cholecalcifero l (VITAMIN D3) 2,000 unit tablet Take 1 tablet (2,000 Units total) by mouth daily Active vitamin E 400 unit capsule Take 1 capsule (400 Units total) by mouth daily Active ascorbic acid (ascorbic acid with aubree hips) 500 mg tablet,chewabl e Take 1 tablet/chew tab (500 mg total) by mouth daily Active fluticasone-um eclidin-vilant er (Trelegy Ellipta) 200-62.5-25 mcg inhaler Inhale 1 puff daily Active albuterol 2.5 mg /3 mL (0.083 %) nebulizer solution Take 3 mL (2.5 mg total) by nebulization every 6 (six) hours as needed for wheezing Active losartan (COZAAR) 50 mg tablet Take 2 tablets (100 mg total) by mouth daily Active nicotine (NICODERM CQ) [address] 1 patch on the skin daily 07/05/[address] (PROTONIX) 40 mg EC tablet Take 1 tablet (40 mg total) by mouth daily Active acetaminophen (TYLENOL) 325 mg tablet Take 2 tablets (650 mg total) by mouth every 6 (six) hours 07/21/20 Active acyclovir (ZOVIRAX) 400 mg tablet TAKE 1 TABLET BY MOUTH DAILY FOR RASH Active amLODIPine (NORVASC) 10 mg tablet amlodipine 10 mg tablet 09/21/19 Active clobetasoL (TEMOVATE) 0.05 % cream Apply topically 10/15/19 Active diazePAM (VALIUM) 10 mg tablet TAKE 1 TABLET BY MOUTH AT BEDTIME FOR 14 DAYS Active nicotine (NICODERM CQ) [address] 1 patch on the skin daily for 24 hours 90 patch 1 12/05/19 25 025 Active nicotine (NICODERM CQ) [address] 1 patch on the skin daily for 24 hours 90 patch 1 12/05/19 25 025 Active nicotine (NICODERM CQ) [address] 1 patch on the skin daily for 24 hours 90 patch 1 12/05/19 25 025 Active fluticasone-um eclidin-vilant er (Trelegy Ellipta) 200-62.5-25 mcg inhaler Inhale 1 puff daily Rinse and spit after use 90 each 3 12/05/19 25 026 Active albuterol 2.5 mg /3 mL (0.083 %) nebulizer solution Take 3 mL (2.5 mg total) by nebulization every 6 (six) hours as needed for wheezing or shortness of breath OK to fill day supply 360 mL 11 12/05/19 025 Active albuterol HFA (PROVENTIL HFA,VENTOLIN HFA,PROAIR HFA) 90 mcg/actuation inhaler Inhale 2 puffs every 6 (six) hours as needed for wheezing or shortness of breath 3 each 3 12/05/19 25 026 Active levoFLOXacin (LEVAQUIN) 750 mg tablet Take 1 tablet (750 mg total) by mouth daily for 7 days 7 tablet 12/05/19 25 025 Active fluticasone-um eclidin-vilant er (Trelegy Ellipta) 200-62.5-25 mcg inhalerIndicat ions:Centrilob ular emphysema (HCC) Inhale 1 puff daily Rinse and spit after use 1 each 11 05/04/20 24 025 Discontinu ed(Duplica te order) Trelegy Ellipta 200-62.5-25 mcg inhaler INHALE 1 PUFF DAILY DIRECTED 180 each 1 12/04/19 25 025 Discontinu ed(Duplica te order) predniSONE (DELTASONE) 20 mg tablet Take 2 tablets (40 mg) by mouth daily for 5 days 10 tablet 12/05/19 025 Active Problems Problem Noted Date Diagnosed Date [...] care Assessment & Plan (08/08/2024 3:04 PM BLOCK SAW OPERATOR): Continue Trelegy Ellipta 200 daily He has [...] is currently in physical therapy, I recommend [place] after this is completed and he is [...] techniques - He is aware of the [place] Tobacco Quit line: 5-878-ONAV-YES for free services - 5 minutes spent discussing cessation He has nicotine patches at home and I have ordered several of each strength for him. He is only smoking one per day - he has not smoked today at all. He is due for annual lung cancer screening in December of 2024 Assessment & Plan (08/08/2024 3:04 PM BLOCK SAW OPERATOR): He continues to smoke 1/2 to 3/4 pack cigarettes per day - Smoking cessation counseling and techniques reviewed at length - Avoid triggers and use distraction techniques - He is aware of the [place] Tobacco Quit line: 5-816-YLOU-YES for free services - 5 minutes spent [...] techniques - He is aware of the [place] Tobacco Quit line: 6-881-AUFZ-YES for free services - 4 minutes spent discussing cessation He has nicotine patches at home He is due for annual lung cancer screening in December of 2024 Assessment & Plan (03/27/2024 11:43 AM CDT): - Smoking cessation counseling and techniques reviewed at length - Avoid triggers and use distraction techniques - Participate in support groups - Information given regarding [place] Tobacco Quit line: 3-389-RPJR-YES for free services - 4 minutes spent discussing cessation Continue nicotine patches, order sent today Annual LDCT due 12/2024 Dyspnea 02/22/2024 Encounters Date Type Department Care Team Description 12/04/2024 2:00 PM CDT Office Visit [facility] at [address] [place] [address] Lisa Garcia, EMELY Centrilobular emphysema (HCC) (Primary Dx); Squamous cell carcinoma of oropharynx (HCC); Cigarette nicotine dependence without complication 09/20/2024 Orders Only [facility] [address] [place] [address] Unknown, Notinfile from Last 3 Months Surgical History Surgery Date Site/Laterality Comments FOOT FRACTURE SURGERY Left WRIST FRACTURE SURGERY Right SKIN CANCER EXCISION back Medical History Medical History Date Comments COPD (chronic obstructive pulmonary disease) (HC C) Tobacco abuse Skin cancer Erectile dysfunction Asthma Hypertension 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 Family History Medical History Relation Name Comments Arthritis Mother Relation Name Status Comments Mother Social History Tobacco Use Types Packs/Day Years Used Date Smoking Tobacco: Every Day Cigarettes 0.1 52.2 Started: 1972 Smokeless Tobacco: Never Tobacco Cessation:Ready to Q uit: Not Asked; Counseling Given: Not Answered Comments:12/04/2024 Patient says that he is down to one cig per day.tc Alcohol Use Standard Drinks/Week Comments No 0 [...] on file Legal Sex Male 11:08 AM BLOCK SAW OPERATOR Gender Identity Not on file Sexual Orientation Not on file Obstetrics History Last Filed Vital Signs Vital Sign Reading Time Taken Comments Blood Pressure 98/60 12/04/2024 2:02 PM CDT Pulse 90 12/04/2024 2:02 PM CDT Temperature 36.9 C (98.4 F) 12/04/2024 2:02 PM CDT Respiratory Rate 18 03/06/2024 10:12 AM CDT Oxygen Saturation 94% 12/04/2024 2:02 PM CDT Inhaled Oxygen Concentration - - Weight 90.1 kg (198 lb 9.6 oz) 12/04/2024 2:02 P M CDT Height 175.3 cm (5' 9 ) 12/04/2024 2:02 PM CDT Body Mass Index 29.33 12/04/2024 2:02 PM CDT Plan of Treatment Health Maintenance Due Date Last Done Comments Colon Cancer Screening-Colonoscopy 1960 Depression Screening 1960 Hepatitis C Screening 1960 Prostate Cancer Screening-PSA 1960 Hepatitis B Screening 01/10/1978 Regular Well Visit/Exam 18-64 01/10/1978 Covid-19 Vaccine (2 - Jansse n risk series) 12/12/2020 11/14/2020 Influenza Vaccine (#1) 2024 2, 06/23/2020, 08/13/2014 DTaP/Tdap/Td Vaccine (2 - Td or Tdap) 07/19/203203/2022 Pneumococcal vaccine <65 Completed 07/05/2023 Zoster Vaccine Completed 09/14/2023, 07/05/2023 Medical Devices Implanted Type Area Drop Forger Device Identifier Shelf Expiration Date Model / Serial / Lot Coloplast Macy [id number] Titan Lock-Out Inflatable Self Contain Fluid Fill Tube Standard Latex Free - Sn/A - [id number] Implanted:Qty: 1 on 11/10/2018 by Rick Gil MD at [facility] Other - see comments N/A: Penis Coloplast Macy 07/11/2023 [id number] / N/A / [id number] Description:Assembly Kit Following select items implanted: Connectors Rear tip extenders Coloplast Macy [id number] Titan Coloplast Lock-Out Inflatable Self Contain Fluid Fill Valve Latex Free - Sn/A - [id number] Implanted:Qty: 1 on 11/10/2018 by Rick Gil MD at [facility] Other - see comments Right: Abdomen Coloplast Macy 08/17/2023 [id number] / N/A / [id number] Description:Tushka Coloplast Macy [id number] Titan Coloplast Lock-Out 18cm Pump Set Inflatable Fluid Fill Soft Latex Free - Sn/A - [id number] Implanted:Qty: 1 on 11/10/2018 by Rick Gil MD at [facility] Other - see comments Right: Penis Coloplast Macy 02/13/2023 [id number] / N/A / [id number] [employer] Mynxgrip 5fr Balloon Catheter Integrate Sealant Lock Latex Free [id number] - [id number] Implanted:Qty: 1 on 03/06/2024 by Mat Byrne MD at [facility] 01/18/2026 [id number] / / [id number] Procedures Procedure Name Priority Date/Time Associated Diagnosis Comments SURGICAL PATHOLOGY Routine 09/20/2024 12 :00 AM BLOCK SAW OPERATOR from Last 3 Months Results * Surgical pathology (09/20/2024 12:00 AM BLOCK SAW OPERATOR) Skin, excision 09/20/2024 09/21/2024 8:35 AM BLOCK SAW OPERATOR Narrative 09/25/2024 1:05 PM BLOCK SAW OPERATOR EPIC results best viewed via link to PDF [facility] [address] [place] [address], [address], [place] [address] [email or web address] Note to Patients: This report may contain [...] REPORTED: 09/25/2024 Submitting Physician Information: Zamzam Plunkett, [facility], [address] [place] [address], DERMATOPATHOLOGY REPORT RESULTS DIAGNOSIS: SKIN, STERNUM, EXCISION: [...] ICD-9 A; ZSD.808 ZSD.1387 Clerical Data A; 54816 The characteristics of special, immunohistochemical, and immunofluorescence stains and in-situ hybridization tests performed by the [facility] were deemed acceptable in ongoing quality control technician measures and in compliance with regulations drawn from the Clinical Laboratory Improvement Act ux4161 (CLIA '88). Control reactions for all stains performed were deemed adequate and appropriate by a pathologist prior to evaluation of patient tissue. Some diagnoses were rendered with the assistance of laboratory-developed tests utilizing analyte-specific reagents; the performance characteristic of these tests were determined by [facility] and are not cleared or approved by the [place] Food an Drug administration. Laboratory developed test may only be performed in a facility that is certified by the [facility] as a high-complexity laboratory under CLIA '88. These tests are used for clinical purposes and are not investigational. us Notinfile Unknown LAB PATHOLOGY ORDERABLES Final Result from Last 3 Months Insurance [facility] Care Teams Railroad Dining Car Stewardess Relationship Specialty Start Date End Date Mark Scott MD [address] [place] [address] [facility] - General 11/10/18
--- OUTSIDE RECORDS SUMMARY | 2024-12-10 09:23 | XMS_ITS | Continuity of Care Document ---
Author Organization [facility] Address [address] [place] [address] [address] [place] [address] Phone Care Team Providers Care Armature Balancer Name Role Phone Louann Hernandez Unavailable Unavailable Procedures Procedure Date Eye Exam & Treatment Refraction Advance Directives Directive Yes / No Effective Date File Name No Information Encounters Encounter Description Practice Location Reason(s) For Visit Diagnoses Date Provider Providers Copied on Encounter [facility], [address] [place] [address] [address], [place], [place], [id number], [place] tel:[phone] [facility] No Information [address] Lew. [address], [place], [address], [place]. tel:[phone] Family History Family Member Type Diagnosis Age At Onset No Information Payers Payer name Insurance type Covered libertarian ID Authoriza tion(s) [employer] [id number] Social History Type Description Quantity Date Captured [...]
--- OUTSIDE RECORDS SUMMARY | 2024-12-10 09:23 | XMS_ITS | Clinical Summary ---
Author Organization [facility] Address [address] [place] [address] Care Team Providers Care Auditing Control Clerk Name Role Phone Paul Rene MD Primary Care Provider Source Comments [facility],non-owned Affiliates and Associated Physician Practices is amultiple site organization consisting of ambulatory clinics and hospital sitesin [place], [place], [place] and [place]. This disclosure is being madepursuant to the Care Everywhere program and may not contain all information available regarding this patient. Last updated 18.[facility] Allergies Active Allergy Reactions Criticality Noted Date [...] Comments Blood Pressure 145/82 07/21/2022 12:24 PM HAZARDOUS MATERIAL TECHNICIAN Pulse 50 07/21/2022 12:24 PM HAZARDOUS MATERIAL TECHNICIAN Temperature 36.4 C (97.6 F) 07/21/2022 12:24 PM HAZARDOUS MATERIAL TECHNICIAN Respiratory Rate 18 07/21/2022 12:2 4 PM HAZARDOUS MATERIAL TECHNICIAN Oxygen Saturation 91% 07/21/2022 12: 24 PM HAZARDOUS MATERIAL TECHNICIAN Inhaled Oxygen Concentration - - Weight 86.1 kg (189 lb 13.1 oz) 07/20/2022 8:44 PM HAZARDOUS MATERIAL TECHNICIAN Height 173.5 cm (5' 8.31 ) 07/20/2022 8:44 PM CS T Body Mass Index 28.6 07/20/2022 8:44 PM HAZARDOUS MATERIAL TECHNICIAN Plan of Treatment Health Maintenance Due Date [...] PANEL (CALCIUM TOTAL) STAT 07/19/2022 3:18 PM HAZARDOUS MATERIAL TECHNICIAN from Last 3 Months or Most Recently Relevant to Health Maintenance Results * (ABNORMAL) BASIC METABOLIC PANEL (CALCIUM TOTAL) (07/19/2022 3:18 PM HAZARDOUS MATERIAL TECHNICIAN) BUN 13 7 - 26 mg/dL 07/19/2022 4:04 PM [facility] Creatinine 1.17(H) 0.71 - 1.16 mg/dL 07/19/2022 4:04 PM [facility] Sodium 140 136 - 145 mmol/L 07/19/2022 4:04 PM [facility] Potassium 3.9 3.5 - 4.5 mmol/L 07/19/2022 4:04 PM [facility] Chloride 108(H) 98 - 107 mmol/L 07/19/2022 4:04 PM [facility] CO2 23 22 - 29 mmol/L 07/19/2022 4:04 PM [facility] Glucose 95 70 - 115 mg/dL 07/19/2022 4:04 PM [facility] Calcium 9.1 8.4 - 10.2 mg/dL 07/19/2022 4:04 PM [facility] Anion Gap 13 8 - 18 07/19/2022 4:04 PM [facility] BUN/Creatinine Ratio 11 7 - 23 07/19/2022 4:04 PM HAZARDOUS MATERIAL TECHNICIAN [facility] Osmolality Calculated 290 270 - 300 mOsm/kg 07/19/2022 4:04 PM HAZARDOUS MATERIAL TECHNICIAN [facility] eGFR by CKD-EPI 70(L) >=90 mL/min/1.7 3 m2 07/19/2022 4:04 PM HAZARDOUS MATERIAL TECHNICIAN [facility] Blood BLOOD SPECIMEN / Unknown Venipuncture / Unknown 07/19/2022 3:18 PM HAZARDOUS MATERIAL TECHNICIAN 07/19/2022 3:36 PM HAZARDOUS MATERIAL TECHNICIAN Teo tSeinberg MD LAB - CHEMISTRY ORD ERABLES [facility] [address] [place] [address], [facility] [phone] from Last 3 Months or Most Recently Relevant to Health Maintenance Advance Directives * Full Code (Latest Code Status on File) Date Activated Date Inactivated Comments 07/20/2022 12:23 AM 07/21/2022 6:10 PM Care Teams Auditing Control Clerk Relationship Specialty Start Date End Date Paul Rene MD [address] [place] [address] PCP - General 07/01/22
--- OUTSIDE RECORDS SUMMARY | 2024-12-10 09:23 | XMS_ITS | CONTINUITY OF CARE DOCUMENT ---
Author Name scott chavez Address Unknown Organization [facility] Address [address] [place] [address] Phone [phone] Care Team Providers Care Business Resiliency Manager Name Role Phone Mat Byrne MD Unavailable [phone] Paul Rene MD Unavailable [phone] Paul Rene MD Unavailable PROBLEMS Condition Status Date Provider Notes Tobacco abuse active Mat Byrne MD Hypertension active Mat Byrne MD Edema active Mat Byrne MD COPD active Mat Byrne MD Shortness of breath active Mat Byrne MD ENCOUNTERS Date Type Provider Location Encounter Diag nosis 0 - 1 In-person encounter Office Visit Mat Byrne MD [facility] Office 6 - 6 In-person encounter Office Visit Mat Byrne MD [place] [facility] 1 - 1 In-person encounter Office Visit Mat Byrne MD [place] [facility] 2 - 2 In-person encounter Office Visit Mat Byrne MD [place] [facility] 0 - 2 In-person encounter Office Visit Mat Byrne MD [place] [facility] Shortness of breathCOPDEdemaHypertensionTobacco abuse VITAL SIGNS Date Observation Value Provider Body Mass Index (Ratio) 30.06 kg/m2 Mat Byrne MD blood pressure, diastolic 84 mm[Hg] Girma cob t blood pressure, systolic 126 mm[Hg] Miller ob Nacht oxygen saturation, oximetry 98 % [facility] 95 /min [facility] weight E&M 203.6 [lb_av] [facility] height E&M 69 [in_i] [facility] Body Mass Index (Ratio) 29.24 kg/m2 Mat Byrne MD blood pressure, diastolic 104 mm[Hg] Malia yla [facility] blood pressure, systolic 168 mm[Hg] Freida la [facility] oxygen saturation, oximetry 95 % Scarlet [facility] weight E&M 198 [lb_av] Scarlet [facility] pulse rate 77 /min Scarlet [facility] blood pressure, cuff size regular Malia campos [facility] height E&M 69 [in_i] Scarlet [facility] Body Mass Index (Ratio) 28.65 kg/m2 [...] Soledad blood pressure, cuff size regular [facility] blood pressure, diastolic 115 mm[Hg] Fa [facility] blood pressure, systolic 158 mm[Hg] [facility] 84 /min [facility] oxygen saturation, oximetry 95 % [facility] respiratory rate E&M 14 /min Vani Mackey iller weight E&M 195 [lb_av] [facility] height E&M 69 [in_i] [facility] ALLERGIES Allergy Name Onset Date Reaction [...] F gee Marcelino chewing tobacco use Current [facility] INSURANCE PROVIDERS Payer name Policy type / Coverage type [place] red libertarian [place] MEDICAID (2) Medicaid [id number] ADVANCE DIRECTIVES Name Date DISCUSSED - NO [...] PFT. He is going to see pulmonary professional housing consultant on 03/27/2024. [facility] Fernandez Cardiology:He report ed progressive dyspnea with minimal exertion. Per pulmonary professional housing consultant, COPD cannot explain his symptoms. We [...] daily Cristóbal Rowe Date Name DLCO - 46938 FRC - 80074 FVC - 49230 PROTHROMBIN TIME WIT H INR LIPID PANEL [...]
--- OUTSIDE RECORDS SUMMARY | 2024-12-10 09:23 | XMS_ITS | Clinical Summary ---
Author Organization [facility] Herbie asencio Cosmo Address [address] [place] [address] Care Team Providers Care Applications Administrator Name Role Phone Unavailable Primary Care Provider [...] Description 12/03/2024 4:00 PM CDT Office Visit [facility] Oncology and Hematology - [place] [address] Markell Godfrey MD Oropharyngeal cancer (CMS/HCC) (Primary Dx) 11/20/2024 Chart Note [facility] Radiation Therapy [address] [place] [address] Quinten Serrano MD 11/12/2024 2:45 PM GROUND INTELLIGENCE OFFICER Office Visit [facility]cology [facility] Hematology - [place] [address] [place] [phone] Markell Godfrey MD Oropharyngeal cancer (CMS/HCC) (Primary Dx) 11/02/2024 Orders Only [facility]ematology - [place] [address] [place] [id number] Markell Godfrey MD 10/25/2024 Orders Only [facility]cology [facility] Hematology - [place] [address] Markell Godfrey MD Lymphadenopathy of head and neck region (Primary Dx) 10/18/2024 Orders Only [facility]cology and Hematology - [place] [address] Markell Godfrey MD Lymphadenopathy of head and neck region (Primary Dx) 10/18/2024 Orders Only [facility] Oncology and Hematology - [place] [address] Markell Godfrey MD Lymphadenopathy of head and neck region (Primary Dx); Non-Hodgkin's lymphoma, unspecified body region, unspecified non-Hodgkin lymphoma type (CMS/HCC) 10/16/2024 External Device Data STL ABSTRACTION Provider, Abstract 10/16/2024 External Device Data STL ABSTRACTION Provider, Abstract 10/16/2024 External Device Data STL ABSTRACTION Provider, Abstract 10/15/2024 1:30 PM GROUND INTELLIGENCE OFFICER Office Visit [facility] Oncology [facility] Hematology - [place] [address] [place] [phone] Markell Godfrey MD Non-Hodgkin's lymphoma, unspecified body [...] on file Legal Sex Male 1:20 PM GROUND INTELLIGENCE OFFICER Gender Identity Not on file Sexual Orientation [...] cm (5' 9 ) 10/15/2024 1:25 PM GROUND INTELLIGENCE OFFICER Body Mass Index 29.15 10/15/2024 1:25 PM GROUND INTELLIGENCE OFFICER Plan of Treatment Upcoming Encounters Date Type Department Care Team (Late st Contact Info) Description 01/28/2025 10:00 AM CDT Office Visit [facility]cology [facility] Hematology - [place] [address] [facility] [address] [place] [address] Markell Godfrey MD [address] [place] [address] Health Maintenance Due Date Last [...] Comments PATHOLOGY REPORT Routine 11/01/2024 2:33 PM GROUND INTELLIGENCE OFFICER from Last 3 Months Results * PATHOLOGY REPORT (11/01/2024 2:33 PM GROUND INTELLIGENCE OFFICER) Markell Godfrey MD PATHOLOGY/CYTOLOGY ORDERABLES F inal Result from Last [address] [place] [address] [place] [address] MEDICAID
--- OUTSIDE RECORDS SUMMARY | 2024-12-10 09:23 | XMS_ITS | Referral Summary ---
Author Organization [facility] Address [address] [place] [address] Care Team Providers Care Company Miner [employer]asting Name Role Phone Mark Scott MD Primary Care Provider [phone] Encounters Date Type Department Care Team Description 12/04/2024 2:00 PM CDT Office Visit [facility] Pulmonary at [address] [place] [address] Lisa Garcia NP Centrilobular emphysema (HCC) (Primary Dx); Squamous cell carcinoma of oropharynx (HCC); Cigarette nicotine dependence without complication 09/20/2024 Orders Only [facility] [address] [place] [address] Unknown, Notinfile from Last 3 Months Allergies [...] by mouth every 6 (six) hours 07/21/20 22 Active acyclovir (ZOVIRAX) 400 mg tablet TAKE [...] OK to fill day supply 360 mL 12/05/19 025 Active albuterol HFA (PROVENTIL HFA,VENTOLIN [...] daily for 5 days 10 tablet 12/05/19 25 025 Active Problems Problem Noted Date Diagnosed [...] care Assessment & Plan (08/08/2024 3:04 PM CARBON DIOXIDE OPERATOR): Continue Trelegy Ellipta 200 daily He [...] is currently in physical therapy, I recommend [place] after this is completed and he is [...] aware of the [place] Tobacco Quit line: 2-500-MWWQ-YES for free services - 5 minutes spent discussing cessation He has nicotine patches at home and I have ordered several of each strength for him. He is only smoking one per day - he has not smoked today at all. He is due for annual lung cancer screening in December of 2024 Assessment & Plan (08/08/2024 3:04 PM CARBON DIOXIDE OPERATOR): He continues to smoke 1/2 to 3/4 pack cigarettes per day - Smoking cessation counseling and techniques reviewed at length - Avoid triggers and use distraction techniques - He is aware of the [place] Tobacco Quit line: 9-836-CXJB-YES for free services - 5 minutes spent [...] aware of the [place] Tobacco Quit line: 0-500-BMIS-YES for free services - 4 minutes spent discussing cessation He has nicotine patches at home He is due for annual lung cancer screening in December of 2024 Assessment & Plan (03/27/2024 11:43 AM CDT): - Smoking cessation counseling and techniques reviewed at length - Avoid triggers and use distraction techniques - Participate in support groups - Information given regarding [place] Tobacco Quit line: 7-076-BOWH-YES for free services - 4 minutes spent [...] on file Legal Sex Male 11:08 AM CARBON DIOXIDE OPERATOR Gender Identity Not on file Sexual [...] 12/04/2024 2:02 PM CDT Plan of Treatment Not on file Medical Devices Implanted Type Area Rotary Envelope Machine Operator Device Identifier Shelf Expiration Date Model / Serial / Lot Coloplast Macy [id number] Titan Lock-Out Inflatable Self Contain Fluid Fill Tube Standard Latex Free - Sn/A - [id number] Implanted:Qty: 1 on 11/10/2018 by Rick Gil MD at [facility] Other - see comments N/A: Penis Coloplast Macy 07/11/2023 [id number] / N/A / [id number] Description:Assembly Kit Following select items implanted: Connectors Rear tip extenders Coloplast Macy [id number] Titan Coloplast Lock-Out Inflatable Self Contain Fluid Fill Valve Latex Free - Sn/A - [id number] Implanted:Qty: 1 on 11/10/2018 by Rick Gil MD at [facility] Other - see comments Right: Abdomen Coloplast Macy 08/17/2023 [id number] / N/A / [id number] Description:Bangs Coloplast Macy [id number] Titan Coloplast Lock-Out 18cm Pump Set Inflatable Fluid Fill Soft Latex Free - Sn/A - [id number] Implanted:Qty: 1 on 11/10/2018 by Rick Gil MD at [facility] Other - see comments Right: Penis Coloplast Macy 02/13/2023 [id number] / N/A / [id number] Cordis Mynxgrip 5fr Balloon Catheter Integrate Sealant Lock Latex Free [id number] - [id number] Implanted:Qty: 1 on 03/06/2024 by Mat Byrne MD at [facility] 01/18/2026 [id number] / / [id number] Procedures Procedure Name Priority Date/Time Associated Diagnosis Comments SURGICAL PATHOLOGY Routine 09/20/2024 12 :00 AM CARBON DIOXIDE OPERATOR from Last 3 Months Results * Surgical pathology (09/20/2024 12:00 AM CARBON DIOXIDE OPERATOR) Skin, excision 09/20/2024 09/21/2024 8:35 AM CARBON DIOXIDE OPERATOR Narrative 09/25/2024 1:05 PM CARBON DIOXIDE OPERATOR EPIC results best viewed via link to PDF [facility] [address] [place] [address], [address], [place] [address] [email or web address] Note to Patients: This report [...] REPORTED: 09/25/2024 Submitting Physician Information: Zamzam Plunkett [employer] MATH TUTOR- [facility], [address] [place] [address], DERMATOPATHOLOGY REPORT RESULTS DIAGNOSIS: SKIN, STERNUM, EXCISION: [...] ICD-9 A; ZSD.808 ZSD.1387 Clerical Data A; 76318 The characteristics of special, immunohistochemical, and immunofluorescence stains and in-situ hybridization tests performed by the [facility] [place] [facility] were deemed acceptable in ongoing quality control engineering technician measures and in compliance with regulations drawn from the Clinical Laboratory Improvement Act vk3734 (CLIA '88). Control reactions for all stains performed were deemed adequate and appropriate by a pathologist prior to evaluation of patient tissue. Some diagnoses were rendered with the assistance of laboratory-developed tests utilizing analyte-specific reagents; the performance characteristic of these tests were determined by [facility] and are not cleared or approved by the [place] Food an Drug administration. Laboratory developed test may only be performed in a facility that is certified by the [facility] as a high-complexity laboratory under CLIA '88. These tests are used for clinical purposes and are not investigational. us Notinfile Unknown LAB PATHOLOGY ORDERABLES Final Result from Last 3 Months Insurance [facility] Care Teams Company Min[employer] Relationship Specialty Start Date End Date Mark Scott MD [address] [place] [address] PCP - General 11/10/18
== END ==
LOC: ANHLAB 08:51
PROVIDERS: PCP Family Medicine; Visit Provider Plastic Surgery
DX: D48.5 Neoplasm of uncertain behavior of skin (principal)
CPT/HCPCS: 88305

== ENCOUNTER 2025-03-12 11:15 | Outpatient (CLI) | payer MEDICARE, SELFPAY ==
--- OUTSIDE RECORDS SUMMARY | 2025-03-12 11:23 | XMS_ITS | Clinical Summary ---
Author Organization [facility] Herbie Sánchez Address [address] [place] [address] Care Team Providers Care Dust Collector Operator Name Role Phone Unavailable Primary Care Provider [...] Encounters Date Type Department Care Team Description 03/01/2025 Telephone [facility] Radiation Therapy [address] [place] [address] Charlotte Varner RN 01/28/2025 8:45 AM CDT Office Visit [facility] Oncology and Hematology [facility] [address] [place] [address] Markell Godfrey MD Oropharyngeal cancer (CMS/HCC) (Primary Dx) from Last 3 Months Family History Medical [...] Cigarettes 0.5 50.1 0 10/15/1974 - 11/30/2024 Tobacco Cessation:Counseling Given: Not Answered Alcohol Use Standard Drinks/Week Comments Yes 0 (1 standard drink = 0.6 oz pur e alcohol) ONLY DURING HOLIDAYS Sex and Gender Information Value Date Recorded Sex Assigned at Not on file Legal Sex Male 1:20 PM STEAM HEATING INSTALLER Gender Identity Not on file Sexual Orientation Not on file Last Filed Vital Signs Vital Sign Reading Time Taken Comments Blood Pressure 136/85 01/28/2025 8:58 AM CDT Pulse 95 01/28/2025 8:58 AM CDT Temperature 36.9 C (98.4 F) 01/28/2025 8:58 AM CDT Respiratory Rate 15 01/28/2025 8:58 AM CDT Oxygen Saturation 95% 01/28/2025 8:58 AM CDT Inhaled Oxygen Concentration - - Weight 88 kg (194 lb) 01/28/2025 8:58 AM CDT Height 175.3 cm (5' 9) 10/15/2024 1:25 PM STEAM HEATING INSTALLER Body Mass Index 28.65 10/15/2024 1:25 PM STEAM HEATING INSTALLER Plan of Treatment Upcoming Encounters Date Type Department Care Team (Late st Contact Info) Description 03/19/2025 9:00 AM CDT Office Visit [facility] Oncology and Hematology [place] [address] [place] [address] Markell Godfrey MD [address] [facility] [address] [place] [address] Health Maintenance Due Date Last Done Comments Pre-Diabetes and Diabetes Screening 1960 PNEUMOCOCCAL VACCINE 50+ YEA RS (1 of 2 - PCV) 01/10/1979 COLORECTAL SCREENING 01/10/2005 Colorectal Cancer Screening 01/10/2005 FIT-DNA Q 3 years 01/10/2005 FIT/FOBT Q 1 year 01/10/2005 Flex Sig/CT Colonography Q 5 years 01/10/2005 Lung Cancer Screening 01/10/2010 ZOSTER VACCINE (1 of 2) 01/10/2010 RSV VACCINE (60+ or ) (1 - Risk 60-74 years 1-dose series) 2020 Medicare [place]) Prev entative Visit/Annual Wellness Visit 09/12/2024 Abdominal Aortic Aneurysm (AAA) Screening 01/10/2025 INFLUENZA VACCINE (#1) 2025 08/04/2022, 2019 DTAP/TDAP/TD VACCINES (2 - Td or Tdap) 07/19/2032 Insurance [employer] MEDICAID [facility]
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
--- OUTSIDE RECORDS SUMMARY | 2025-03-12 11:23 | XMS_ITS | Clinical Summary ---
Author Organization [facility] Address [address] [place] [address] Care Team Providers Care Duplicating Machine Mechanic Name Role Phone Mark Scott MD Primary Care Provider [phone]- [phone] Allergies Active Allergy Reactions Criticality Noted Date [...] patch on the skin daily [address] (PROTONIX) 40 mg EC tablet Take 1 tablet (40 mg total) by mouth daily Active acetaminophen (TYLENOL) 325 mg tablet Take 2 tablets (650 mg total) by mouth every 6 (six) hours 2 Active acyclovir (ZOVIRAX) 400 mg tablet TAKE 1 TABLET BY MOUTH DAILY FOR RASH Active amLODIPine (NORVASC) 10 mg tablet amlodipine 10 mg tablet 5 Active clobetasoL (TEMOVATE) 0.05 % cream Apply topically 5 Active diazePAM (VALIUM) 10 mg tablet TAKE 1 TABLET BY MOUTH AT BEDTIME FOR 14 DAYS Active nicotine (NICODERM CQ) [address] 1 patch on the skin daily for 24 hours 90 patch 1 5 Active nicotine (NICODERM CQ) [address] 1 patch on the skin daily for 24 hours 90 patch 1 5 Active nicotine (NICODERM CQ) [address] 1 patch on the skin daily for 24 hours 90 patch 1 5 Active fluticasone-ume clidin-vilanter (Trelegy Ellipta) 200-62.5-25 mcg inhaler Inhale 1 puff daily Rinse and spit after use 90 each 3 5 12/05/19 26 Active albuterol 2.5 mg /3 mL (0.083 %) nebulizer solution Take 3 mL (2.5 mg total) by nebulization every 6 (six) hours as needed for wheezing or shortness of breath OK to fill day supply 360 mL Active albuterol HFA (PROVENTIL HFA,VENTOLIN HFA,PROAIR HFA) 90 mcg/actuation inhaler Inhale 2 puffs every 6 (six) hours as needed for wheezing or shortness of breath 3 each 3 5 12/05/19 26 Active Active Problems Problem Noted Date Diagnosed [...] care Assessment & Plan (08/08/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 He is only smoking one per day - he has not smoked today at all. 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): He continues to smoke 1/2 to 3/4 pack cigarettes per day - Smoking cessation counseling and techniques reviewed at length - Avoid triggers and use distraction techniques - He is aware of the [place] Tobacco Quit line: 0-125-CUJN-YES for free services - 5 minutes spent [...] techniques - He is aware of the [place] Tobacco Quit line: 4-277-TPPJ-YES for free services - 4 minutes spent discussing cessation He has nicotine patches at home He is due for annual lung cancer screening in December of 2024 Assessment & Plan (03/27/2024 11:43 AM CDT): - Smoking cessation counseling and techniques reviewed at length - Avoid triggers and use distraction techniques - Participate in support groups - Information given regarding [place] Tobacco Quit line: 7-845-RLWB-YES for free services - 4 minutes spent discussing cessation Continue nicotine patches, order sent today Annual LDCT due 12/2024 Dyspnea 02/22/2024 Encounters Date Type Department Care Team Description 01/24/2025 Telephone [facility] Pulmonary at [address] [place] [address] Lorin Iglesias LPN Prior Auth 01/23/2025 Telephone [facility] Pulmonary at [address] [place] [address] Wilma Herrera LPN Paperwork for insurance from Last 3 Months Surgical History Surgery [...] Date Smoking Tobacco: Every Day Cigarettes 0.1 52.5 Started: 1972 Smokeless Tobacco: Never Tobacco Cessation:Ready [...] on file Legal Sex Male 11:08 AM EXTRACTOR OPERATOR HELPER Gender Identity Not on file Sexual [...] P M CDT Height 175.3 cm (5' 9) 12/04/2024 2:02 PM CDT Body Mass Index 29.33 12/04/2024 2:02 PM CDT Plan of Treatment Health Maintenance Due Date Last Done Comments Colon Cancer Screening-Colonoscopy 1960 Depression Screening 1960 Hepatitis C Screening 1960 Prostate Cancer Screening-PSA 1960 Hepatitis B Screening 01/10/1978 Covid-19 Vaccine (2 - Jansse n risk series) 12/12/2020 11/14/2020 Abdominal Aortic Aneurysm (A AA) Screen 01/10/2025 07/19/2022 Well Visit 65+ 01/10/2025 Fall Risk Assessment 03/06/2025 03/06/2024 Influenza Vaccine (Season Ended) 2025 08/04/2022, 06/23/2020, 08/13/2014 DTaP/Tdap/Td Vaccine (2 - Td or Tdap) 07/19/203203/2022 Pneumococcal vaccine 65+ Completed 07/05/2023 Zoster Vaccine Completed 09/14/2023, 07/05/2023 Medical Devices Implanted Type Area Attenuator Device Identifier Shelf Expiration Date Model / Serial / Lot Coloplast Macy [id number] Titan Lock-Out Inflatable Self Contain Fluid Fill Tube Standard Latex Free - Sn/A - [id number] Implanted:Qty: 1 on 11/10/2018 by Rick Gil MD at [facility] Other - see comments N/A: Penis Coloplast Macy 07/11/2023 [id number] / N/A / [id number] Description:Assembly Kit Following select items implanted: Connectors Rear tip extenders Coloplast Macy [id number] Titan Coloplast Lock-Out Inflatable Self Contain Fluid Fill Valve Latex Free - Sn/A - [id number] Implanted:Qty: 1 on 11/10/2018 by Rick Gil MD at [facility] Other - see comments Right: Abdomen Coloplast Macy 08/17/2023 [id number] / N/A / [id number] Description:[place] Coloplast Macy [id number] Titan Coloplast Lock-Out 18cm Pump Set Inflatable Fluid Fill Soft Latex Free - Sn/A - [id number] Implanted:Qty: 1 on 11/10/2018 by Rick Gil MD at [facility] Other - see comments Right: Penis Coloplast Macy 02/13/2023 [id number] / N/A / [id number] Cordis Mynxgrip 5fr Balloon Catheter Integrate Sealant Lock Latex Free [id number] - [id number] Implanted:Qty: 1 on 03/06/2024 by Mat Byrne MD at [facility] 01/18/2026 [id number] / / [id number] Insurance [facility] Care Teams Duplicating Machine Mechanic Relationship Specialty Start Date End Date Mark Scott MD [address] [place] [address] PCP - General 11/10/18
--- OUTSIDE RECORDS SUMMARY | 2025-03-12 11:23 | XMS_ITS | Patient Health Record ---
Author Organization [facility] Billing Info Address [address] [place] [address] Support Name Relationship Address Phone [facility] [address] [place] [address] Matias Benoit Guarantor Unknown Reason For Referral No Information Plan Of Treatment No Information
--- OUTSIDE RECORDS SUMMARY | 2025-03-12 11:23 | XMS_ITS ---
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 He is only smoking one per day - he has not smoked today at all. 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): He continues to smoke 1/2 to 3/4 pack cigarettes per day - Smoking cessation counseling and techniques reviewed at length - Avoid triggers and use distraction techniques - He is aware of the [place] Tobacco Quit line: 3-289-UVVK-YES for free services - 5 minutes spent [...] aware of the [place] Tobacco Quit line: 1-483-NGPQ-YES for free services - 4 minutes spent discussing cessation He has nicotine patches at home He is due for annual lung cancer screening in December of 2024 Assessment & Plan (03/27/2024 11:43 AM CDT): - Smoking cessation counseling and techniques reviewed at length - Avoid triggers and use distraction techniques - Participate in support groups - Information given regarding [place] Tobacco Quit line: 1-525-JEPT-YES for free services - 4 minutes spent [...]
--- OUTSIDE RECORDS SUMMARY | 2025-03-12 11:23 | XMS_ITS | Referral Summary ---
Author Organization [facility] Address [address] [place] [address] Care Team Providers Care Devil Tender Name Role Phone Mark Scott MD Primary Care Provider [phone] Encounters Date Type Department Care Team Description 01/24/2025 Telephone [facility] Pulmonary at [address] [place] [address] Lorin Iglesias LPN Prior Auth 01/23/2025 Telephone [facility] Pulmonary at [address] [place] [address] Wilma Herrera LPN Paperwork for insurance from Last 3 Months Allergies Active Allergy [...] Rinse and spit after use 90 each 5 12/05/19 26 Active albuterol 2.5 mg /3 mL (0.083 %) nebulizer solution Take 3 mL (2.5 mg total) by nebulization every 6 (six) hours as needed for wheezing or shortness of breath OK to fill day supply 360 mL 5 Active albuterol HFA (PROVENTIL HFA,VENTOLIN HFA,PROAIR HFA) 90 mcg/actuation inhaler Inhale 2 puffs every 6 (six) hours as needed for wheezing or shortness of breath 3 each 5 12/05/19 26 Active Active Problems Problem [...] care Assessment & Plan (08/08/2024 3: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 He is only smoking one per day - he has not smoked today at all. He is due for annual lung cancer screening in December of 2024 Assessment & Plan (08/08/2024 3:04 PM MASTER CHEF): He continues to smoke 1/2 to 3/4 pack cigarettes per day - Smoking cessation counseling and techniques reviewed at length - Avoid triggers and use distraction techniques - He is aware of the [place] Tobacco Quit line: 3-426-KRZC-YES for free services - 5 minutes spent [...] techniques - He is aware of the [place] Tobacco Quit line: 8-189-WABJ-YES for free services - 4 minutes spent discussing cessation He has nicotine patches at home He is due for annual lung cancer screening in December of 2024 Assessment & Plan (03/27/2024 11:43 AM CDT): - Smoking cessation counseling and techniques reviewed at length - Avoid triggers and use distraction techniques - Participate in support groups - Information given regarding [place] Tobacco Quit line: 0-785-HHPJ-YES for free services - 4 minutes spent [...] on file Legal Sex Male 11:08 AM MASTER CHEF Gender Identity Not on file Sexual Orientation [...] on file Medical Devices Implanted Type Area Cab Supervisor Device Identifier Shelf Expiration Date Model / Serial / Lot Coloplast Macy [id number] Titan Lock-Out Inflatable Self Contain Fluid Fill Tube Standard Latex Free - Sn/A - [id number] Implanted:Qty: 1 on 11/10/2018 by Rick Gil MD at [facility] Other - see comments N/A: Penis Coloplast Macy 07/11/2023 [id number] / N/A / [id number] Description:Assembly Kit Following select items implanted: Connectors Rear tip extenders Coloplast Macy [id number] Titan Coloplast Lock-Out Inflatable Self Contain Fluid Fill Valve Latex Free - Sn/A - [id number] Implanted:Qty: 1 on 11/10/2018 by Rick Gil MD at [facility] Other - see comments Right: Abdomen Coloplast Macy 08/17/2023 [id number] / N/A / [id number] Description:[place] Coloplast Macy [id number] Titan Coloplast Lock-Out 18cm Pump Set Inflatable Fluid Fill Soft Latex Free - Sn/A - [id number] Implanted:Qty: 1 on 11/10/2018 by Rick Gil MD at [facility] Other - see comments Right: Penis Coloplast Macy 02/13/2023 [id number] / N/A / [id number] Cordis Mynxgrip 5fr Balloon Catheter Integrate Sealant Lock Latex Free [id number] - [id number] Implanted:Qty: 1 on 03/06/2024 by Mat Byrne MD at [facility] 01/18/2026 [id number] / / [id number] [facility] Care Teams Devil Tender Relationship Specialty Start Date End Date Mark Scott MD [address] [place] [address] PCP - General 11/10/18
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
--- OUTSIDE RECORDS SUMMARY | 2025-03-12 11:23 | XMS_ITS | Encounter Summary ---
Author Organization [facility] Address [address] [place] [address] Care Team Providers Care Hide Cleaner Name Role Phone Unavailable Primary Care Provider Unavailabl e Encounter Details Date Type Department Care Team ([facility] Contact Info) Description 03/01/2025 Telephone [facility] Radiation Therapy [address] [place] [address] Charlotte Varner, BRIDGET Social History Tobacco Use Types Packs/Day Years Used Date Smoking Tobacco: Former Cigarettes 0.5 50.1 0 10/15/1974 - 11/30/2024 Alcohol Use Standard Drinks/Week Comments Yes 0 (1 standard drink = 0.6 oz pur e alcohol) ONLY DURING HOLIDAYS Sex and Gender Information Value Date Recorded Sex Assigned at Not on file Legal Sex Male 1:20 PM QUALITY ASSOCIATE Gender Identity Not on file Sexual Orientation Not on file documented as of this encounter Plan of Treatment Upcoming Encounters Date Type Department Care Team ([facility] Contact Info) Description 03/19/2025 9:00 AM CDT Office Visit [facility] Oncology and Hematology - Luis [address] [facility] [address] [place] [address] Markell Godfrey MD [address] [facility] [address] [place] [address] documented as of this encounter Visit Diagnoses Not on filedocumented in this encounter
[2025-03-12 11:31] LABS: Hematocrit 35.9 % (42.0-52.0); Hemoglobin 11.6 g/dL (14.0-18.0); Immature Granulocyte Percent A 1.0 % (0-0.5); Lymphocytes Absolute Auto 0.59 K/mm3 (0.9-3.2); Mean Corpuscular HGB Conc 32.3 g/dl (32-36); Mean Corpuscular Hemoglobin 28.0 pg (26-34); Mean Corpuscular Volume 86.5 fl (80-100); Nucleated Red Blood Cells Absolute Auto 0.000 K/mm3 (0.0-0.012); Nucleated Red Blood Cells Perc 0.0 % (0.0-0.2); Platelet Count Result 210 k/mm3 (150-375); Red Blood Count 4.15 M/mm3 (4.6-6.20); White Blood Count 4.2 K/mm3 (4.5-10.0)
[2025-03-12 12:39] LABS: Alanine Aminotransferase 19 U/L (6-50); Albumin Level 4.2 g/dL (3.5-5.1); Alkaline Phosphatase 72 U/L (38-126); Anion Gap 10 mmol/L (4-12); Aspartate Amino Transferase 32 U/L (17-59); Bilirubin,Total 0.4 mg/dL (0.2-1.3); Blood Urea Nitrogen 15 mg/dL (9-20); Calcium 9.4 mg/dL (8.4-10.2); Carbon Dioxide 27 mmol/L (22-30); Chloride 104 mmol/L (98-107); Estimated Glomerular Filt Rate > 60; Glucose 113 mg/dL (65-110); Potassium 4.0 mmol/L (3.4-5.0); Sodium 141 mmol/L (137-145); Total Protein 7.7 g/dL (6.3-8.2)
== END 2025-03-12 11:16 | disposition home or self-care (01) ==
PROVIDERS: PCP Family Medicine; Visit Provider Internal Medicine Hematology & Oncology
DX: C10.9 Malignant neoplasm of oropharynx, unspecified (principal)
CPT/HCPCS: 36415; 80053; 85025

== ENCOUNTER 2025-03-21 12:12 | Outpatient (CLI) | payer MEDICARE, SELFPAY ==
--- NOTE | ~2025-03-21 | PE_ITS ---
EXAMINATION: PET skull to mid thigh DATE: 03/21/2025 14:12 INDICATION: Oropharyngeal malignancy TECHNIQUE: Blood glucose level was 102 mg/dL. 9.717 mCi of 18-fluorodeoxyglucose (18-FDG) was adminis tered i.v. Low dose computed tomography (CT) images were acquired from the base of the brain to the p roximal thighs for attenuation correction and anatomic localization. Positron emission tomography (PE T) images were acquired in the same distribution beginning 60 minutes after injection. Images includi ng fused PET/CT images were reconstructed in axial, coronal, and sagittal planes. Automated exposure control technique was employed. The dose-length product was 1152.92mGy-cm. 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 T here is symmetric increased activity in the oral cavity, palatine tonsils, submandibular glands, kendrick ngeal muscles and ocular muscles without CT correlate, likely physiologic. The previously seen thicke unruly of the soft tissues in the region of the right parapharyngeal soft tissues near the base of the tongue has essentially resolved along the the associated asymmetric abnormal increased FDG activity. There is also been interval decrease in size and resolution of prior abnormal increased FDG uptake as sociated with a couple right level 2 jugular chain lymph nodes. For reference the previously 2.2 x 1. 6 cm lymph node posterior to the right sternocleidomastoid muscle with maximal SUV of 14.9 has decrea sed to 12 x 7 mm with maximal SUV of 2.9. There is slight increase in FDG activity, previously 2.6, c urrently 3.3 associated with a slightly more caudal 9 x 5 mm lymph nodes which is slightly decreased in size from 11 x 6 mm. Chest: Mild emphysema. 2.0 x 1.2 cm FDG avid nodule in the superior segment of the right lower lobe with max imal SUV of 3.1 which is without correlate on the prior study and could represent either pneumonia or metastatic disease. No other pulmonary nodules or pleural effusion. Heart size is normal. No pericar dial effusion. Thoracic aorta is normal in caliber. No pathologically enlarged thoracic lymphadenopat hy. Small sliding-type hiatal hernia. Abdomen/pelvis/proximal thighs: Physiologic renal accumulation and excretion of FDG activity in the kidneys, bladder and along portio ns of ureters. Prostatomegaly measuring 5.0 x 4.1 cm. The nodule prosthesis. Normal degree and hetero genous pattern of increased uptake throughout the liver without radiologic correlate or dominant FDG avid lesion. The gallbladder, pancreas, spleen and bilateral adrenal glands are normal. Mild uptake s cattered throughout the bowels without radiologic correlate, also likely physiologic. There are few s cattered diverticula along the sigmoid colon without adjacent from trace stranding to suggest diverti culitis. No other abnormal foci of increased FDG uptake or pathologically enlarged lymphadenopathy in the abdomen, pelvis or proximal thighs. Musculoskeletal: Moderate cervical, thoracic and lumbar spondylosis. Interspinous process fusion device at L4-L5. No s uspicious lytic, blastic or abnormally FDG avid bone lesions. Diffuse mild likely physiologic muscula r uptake without radiologic correlate at the bilateral shoulders and upper extremities. Asymmetric mi ld right-sided and moderate left-sided uptake overlying the bilateral greater trochanters without rad iologic correlate consistent with trochanteric bursitis. IMPRESSION: 1. 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 2. New 2.0 x 1.2 cm FDG avid nodules at the superior segment of the right upper lobe which without co rrelate on the prior study and would favor pneumonia over primary malignancy or metastatic disease. R ecommend short interval follow-up with low-dose noncontrast chest CT in a 6-12 weeks. 3. Prostatomegaly. Reviewed, dictated and finalized at location A. IMPRESSION: 1. Decrease in size and degree of FDG uptake associated with thickened soft tis sues at the right side of the oropharynx and a few loosely enlarged right upper cervical lymphadenopathy consistent with response to treatment of reported andrew pharyngeal cancer with local metastatic disease. 2. New 2.0 x 1.2 cm FDG avid nodules at the superior segment of the right upper lobe which without correlate on the prior study and would favor pneumonia over primary malignancy or metastatic disease. Recommend short interval follow-up w ith low-dose noncontrast chest CT in a 6-12 weeks. 3. Prostatomegaly.
--- OUTSIDE RECORDS SUMMARY | 2025-03-21 12:18 | XMS_ITS | Clinical Summary ---
Author Organization [facility] Herbie asencio Cosmo Address [facility] [address] [facility] [address] Care Team Providers Care Real Estate Salesperson Name Role Phone Unavailable Primary Care Provider [...] Encounters Date Type Department Care Team Description 03/13/2025 Telephone [facility] Oncology and Hematology - [address] [facility] [address] [place] [address] Markell Godfrey MD Pet Scan 03/13/2025 Orders Only [facility] Oncology and Hematology [facility] [address] [place] [address] Markell Godfrey MD 03/01/2025 Telephone [facility] Radiation Therapy [address] [place] [address] Charlotte Varner RN 01/28/2025 8:45 AM CDT Office Visit [facility] Oncology and Hematology [address] [place] [address] Markell Godfrey MD Oropharyngeal cancer (CMS/HCC) (Primary [...] on file Legal Sex Male 1:20 PM CLOTHING MANAGER Gender Identity Not on file Sexual [...] 175.3 cm (5' 9) 10/15/2024 1:25 PM CLOTHING MANAGER Body Mass Index 28.65 10/15/2024 1:25 PM CLOTHING MANAGER Plan of Treatment Upcoming Encounters Date Type Department Care Team (Late st Contact Info) Description 03/28/2025 9:30 AM CDT Office Visit [facility] Oncology and Hematology - Luis [address] [facility] [address] [place] [address] Markell Godfrey MD [address] [facility] [address] [place] [address] Health Maintenance Due Date Last [...] 60-74 years 1-dose series) 2020 [place] Prev entative Visit/Annual Wellness Visit 09/12/2024 Abdominal Aortic Aneurysm (AAA) Screening 01/10/2025 INFLUENZA VACCINE (#1) 2025 08/04/2022, 2019 DTAP/TDAP/TD VACCINES (2 - Td or Tdap) 07/19/2032 Procedures Procedure Name Priority Date/Time Associated Diagnosis Comments COMPREHENSIVE METABOLIC PANEL Routine 03/12/2025 7:45 AM CDT from Last 3 Months Results * COMPREHENSIVE METABOLIC PANEL (03/12/2025 7:45 AM CDT) Blood us Markell Godfrey MD CHEMISTRY ORDERABLES Final Resu lt from Last 3 Months Insurance [facility]
--- OUTSIDE RECORDS SUMMARY | 2025-03-21 12:18 | XMS_ITS | Continuity of Care Document ---
Author Organization [facility] Address [address] [place] [address] Phone Care Team Providers Care Impact Hammer Operator Name Role Phone Drew WEIR, Usman Unavailable [...] Providers Copied on Encounter [facility], [address], [place], [address], [place] tel:[phone] [facility] Lesion of ulnar nerve, left upper limb 3 Drew Mary. [address], [place], [address]. tel:[phone] OFFICE/OUTPA TIENT VISIT EST [facility], [address], [place], [address], [place] tel:[phone] [facility] Cubital tunnel syndrome, leftBody mass index [BMI] 28.0-28.9, adult - 3 Pinn[address]eni Usman. [address], [place], [address]. tel:[phone] Referring Provider: Miguel Rene, [address] [facility] [address], [place], [address]. tel:[phone] OFFICE/OUTPA TIENT VISIT EST [facility], [address], [place], [address], [place] tel:[phone] [facility] S/P right rotator cuff repair 3 Cezar Wyman. [address], [place], [address]. tel:[phone] Referring Provider: Miguel Rene, [address] [facility] [address], [place], [address]. tel:[phone] [facility], [address], [place], [address], [place] tel:[phone] [facility] S/P right rotator cuff repair 3 [address] Usman. [address], [place], [address]. tel:[phone] Referring Provider: Miguel Rene, [address] [facility] [address], [place], [address]. tel:[phone] [facility], [address], [place], [address], [place] tel:[phone] [facility] No Information 3 [address] Usman. [address], [place], [address]. tel:[phone] [facility], [address], [place], [address], [place] tel:[phone] [facility] S/P right rotator cuff repair 3 Cezar Wyman. [address], [place], [address]. tel:[phone] Referring Provider: Miguel Rene [address] [place] [address] [address], [place], [address]. tel:[phone] [facility], [address], [place], [address], [place] tel:[phone] [facility] S/P right rotator cuff repair 3 [address] Wyman. [address], [place], [address]. tel:[phone] Referring Provider: Miguel Rene, [address] [facility] [address], [place], [address]. tel:[phone] [facility], [address] [address] [facility] [address], [place], [address], [place] tel:[phone] [facility] S/P right rotator cuff repair 3 Drew Mary. [address], [place], [address]. tel:[phone] [facility], [address] [address], [place], [address], [place] tel:[phone] [facility] Complete tear of right rotator cuff, unspecified whether traumaticRigh t bicipital tenosynovitis Degenerative superior labral xytgfkpf-ks-l osterior (SLAP) tear of right shoulderOther sprain of right shoulder joint, initial encounterStra in of muscle, fascia and tendon of long head of biceps, right arm, initial encounterImpi ngement syndrome of right shoulderOsteo phyte, right shoulder 3 Drew Mary. [address], [place], [address]. tel:[phone] [facility], [address] [facility], [place], [address], [place] tel:[phone] [facility] Incomplete tear of right rotator cuff, unspecified whether traumatic 3 Drew Mary. [address], [place], [address]. tel:[phone] [facility], [address] [facility] [address], [place], [address], [place] tel:[phone] [facility] Incomplete tear of right rotator cuff, unspecified whether traumaticBody mass index [BMI] 28.0-28.9, adult 3 Drew Mary. [address], [place], [address]. tel:[phone] Referring Provider: Miguel Rene, [address] [place] [address] [address], [place], [address]. tel:[phone] Family History Family Member Type Diagnosis Age At Onset No Information Payers Payer name Insurance type Covered constitution party ID [place] rosado(s) [facility] [id number] Social History Type Description Quantity Date [...]
--- OUTSIDE RECORDS SUMMARY | 2025-03-21 12:18 | XMS_ITS | Patient Health Record ---
Author Organization [facility] Billing Info Address [address] [place] [address] Support Name Relationship Address Phone Lan Lucy Emergency Contact [address] [place] [address] Matias Benoit Guarantor Unknown Reason For Referral No Information Plan Of Treatment No Information
--- OUTSIDE RECORDS SUMMARY | 2025-03-21 12:18 | XMS_ITS | Clinical Summary ---
Author Organization [facility] Address [address] [place] [address] Care Team Providers Care Baby Counselor Name Role Phone Mark Scott MD Primary Care Provider [phone] Allergies Active Allergy Reactions Criticality Noted Date Comments Codeine Nausea & Vomiting Low 11/06/2018 Medications albuterol HFA (PROVENTIL HFA,VENTOLIN HFA,PROAIR HFA) 90 mcg/actuation inhaler Inhale 2 puffs every 6 (six) hours as needed for wheezing Active multivitamin tabletIndicat ions:Vitamin Deficiency Prevention Take 1 tablet by mouth daily Active cholecalcifer ol (VITAMIN D3) 2,000 unit tablet Take 1 tablet (2,000 Units total) by mouth daily Active vitamin E 400 unit capsule Take 1 capsule (400 Units total) by mouth daily Active ascorbic acid (ascorbic acid with aubree hips) 500 mg tablet,chewab le Take 1 tablet/chew tab (500 mg total) by mouth daily Active albuterol 2.5 mg /3 mL [...] for 24 hours 90 patch 1 12/05/19 Active nicotine (NICODERM CQ) [address] 1 patch on the skin daily for 24 hours 90 patch 1 12/05/19 Active nicotine (NICODERM CQ) [address] 1 patch on the skin daily for 24 hours 90 patch 1 12/05/19 Active albuterol 2.5 mg /3 mL (0.083 %) nebulizer solution Take 3 mL (2.5 mg total) by nebulization every 6 (six) hours as needed for wheezing or shortness of breath OK to fill day supply 360 mL 12/05/19 Active albuterol HFA (PROVENTIL HFA,VENTOLIN HFA,PROAIR HFA) 90 mcg/actuation inhaler Inhale 2 puffs every 6 (six) hours as needed for wheezing or shortness of breath 3 each 3 12/05/19 25 026 Active fluticasone-u meclidin-gerardo nter (Trelegy Ellipta) 200-62.5-25 mcg inhaler Inhale 1 puff daily 180 each 6 03/18/20 25 025 Active fluticasone-u meclidin-gerardo nter (Trelegy Ellipta) 200-62.5-25 mcg inhaler Inhale 1 puff daily 025 Discontinued(D uplicate order) fluticasone-u meclidin-gerardo nter (Trelegy Ellipta) 200-62.5-25 mcg inhaler Inhale 1 puff daily Rinse and spit after use 90 each 3 12/05/19 25 025 Discontinued Active Problems Problem Noted Date Diagnosed Date [...] care Assessment & Plan (08/08/2024 3:04 PM CHIEF PROCUREMENT OFFICER): Continue Trelegy Ellipta 200 daily He has [...] is currently in physical therapy, I recommend [place] after this is completed and he is [...] techniques - He is aware of the [place] Tobacco Quit line: 7-833-QQQF-YES for free services - 5 minutes spent discussing cessation He has nicotine patches at home and I have ordered several of each strength for him. He is only smoking one per day - he has not smoked today at all. He is due for annual lung cancer screening in December of 2024 Assessment & Plan (08/08/2024 3:04 PM CHIEF PROCUREMENT OFFICER): He continues to smoke 1/2 to 3/4 pack cigarettes per day - Smoking cessation counseling and techniques reviewed at length - Avoid triggers and use distraction techniques - He is aware of the [place] Tobacco Quit line: 3-342-UMYR-YES for free services - 5 minutes spent [...] techniques - He is aware of the [place] Tobacco Quit line: 7-455-CEAC-YES for free services - 4 minutes spent discussing cessation He has nicotine patches at home He is due for annual lung cancer screening in December of 2024 Assessment & Plan (03/27/2024 11:43 AM CDT): - Smoking cessation counseling and techniques reviewed at length - Avoid triggers and use distraction techniques - Participate in support groups - Information given regarding [place] Tobacco Quit line: 3-611-ULPX-YES for free services - 4 minutes spent discussing cessation Continue nicotine patches, order sent today Annual LDCT due 12/2024 Dyspnea 02/22/2024 Encounters Date Type Department Care Team Description 03/18/2025 Telephone [facility] Pulmonary at [address] [place] [address] Lorin Iglesias LPN Prior Auth (Trelelgy) 01/24/2025 Telephone [facility] Pulmonary at [address] [place] [address] Lorin Iglesias LPN Prior Auth 01/23/2025 Telephone [facility] Pulmonary at [address] [place] [address] Wilma Herrera LPN Paperwork for [...] on file Legal Sex Male 11:08 AM CHIEF PROCUREMENT OFFICER Gender Identity Not on file Sexual [...] Fall Risk Assessment 03/06/2025 03/06/2024 Influenza Vaccine (#1) 2025 , 06/23/2020, 08/13/2014 DTaP/Tdap/Td Vaccine (2 - Td or Tdap) 07/19/203203/2022 Pneumococcal vaccine 65+ Completed 07/05/2023 Zoster Vaccine Completed 09/14/2023, 07/05/2023 Medical Devices Implanted Type Area State Historical Society Director Device Identifier Shelf Expiration Date Model / Serial / Lot Coloplast Macy [id number] Titan Lock-Out Inflatable Self Contain Fluid Fill Tube Standard Latex Free - Sn/A - [id number] Implanted:Qty: 1 on 11/10/2018 by Rick Gil MD at [facility] Other - see comments N/A: Penis Coloplast Macy 07/11/2023 [id number] / N/A / [id number] Description:Assembly Kit Following select items implanted: Connectors Rear tip extenders Coloplast Macy [id number] Titan Coloplast Lock-Out Inflatable Self Contain Fluid Fill Valve Latex Free - Sn/A - [id number] Implanted:Qty: 1 on 11/10/2018 by Rick Gil MD at [facility] Other - see comments Right: Abdomen Coloplast Macy 08/17/2023 [id number] / N/A / [id number] Description:[place] Coloplast Macy [id number] Titan Coloplast Lock-Out 18cm Pump Set Inflatable Fluid Fill Soft Latex Free - Sn/A - [id number] Implanted:Qty: 1 on 11/10/2018 by Rick Gil MD at [facility] Other - see comments Right: Penis Coloplast Macy 02/13/2023 [id number] / N/A / [id number] Cordis Mynxgrip 5fr Balloon Catheter Integrate Sealant Lock Latex Free [id number] - [id number] Implanted:Qty: 1 on 03/06/2024 by Mat Byrne MD at [facility] 01/18/2026 [id number] / / [id number] Insurance [facility] Care Teams Baby Counselor Relationship Specialty Start Date End Date Mark Scott MD [address] [place] [address] PCP - General 11/10/18
--- OUTSIDE RECORDS SUMMARY | 2025-03-21 12:18 | XMS_ITS | Continuity of Care Document ---
Author Organization [facility] Address [address] [place] [address] [address] [place] [address] Phone Care Team Providers Care Inspector Set Up And Lay Out Name Role Phone Louann Hernandez Unavailable Unavailable Procedures Procedure Date Eye Exam & Treatment Refraction Advance Directives Directive Yes / No Effective Date File Name No Information Encounters Encounter Description Practice Location Reason(s) For Visit Diagnoses Date Provider Providers Copied on Encounter Merged with [facility], [address] [place] [address] [address], [place], [place], [id number], [place] tel:[phone] SEC [facility] No Information [address] , [address], [place], [address], [place]. tel:[phone] Family History Family Member Type Diagnosis Age At Onset No Information Payers Payer name Insurance type Covered constitution party ID Authoriza tion(s) [employer] SOI [id number] Social History Type Description Quantity Date Captured [...]
--- OUTSIDE RECORDS SUMMARY | 2025-03-21 12:18 | XMS_ITS | Referral Summary ---
Author Organization [facility] Address [address] [place] [address] Care Team Providers Care Hearing Examiner Name Role Phone Mark Scott MD Primary Care Provider [phone] Encounters Date Type Department Care Team Description 03/18/2025 Telephone [facility] Pulmonary at [address] [place] [address] Lorin Iglesias LPN Prior Auth (Trelelgy) 01/24/2025 Telephone [facility] Pulmonary at [address] [place] [address] Lorin Iglesias LPN Prior Auth 01/23/2025 Telephone [facility] Pulmonary at [address] [place] [address] Wilma Herrera LPN Paperwork for insurance [...] amlodipine 10 mg tablet 09/21/19 25 Active clobetasoL (TEMOVATE) 0.05 % cream Apply topically 10/15/19 25 Active diazePAM (VALIUM) 10 mg tablet TAKE 1 TABLET BY MOUTH AT BEDTIME FOR 14 DAYS Active nicotine (NICODERM CQ) [address] 1 patch on the skin daily for 24 hours 90 patch 1 12/05/19 25 Active nicotine (NICODERM CQ) [address] 1 patch on the skin daily for 24 hours 90 patch 1 12/05/19 25 Active nicotine (NICODERM CQ) [address] 1 patch on the skin daily for 24 hours 90 patch 1 12/05/19 25 Active albuterol 2.5 mg /3 mL (0.083 %) nebulizer solution Take 3 mL (2.5 mg total) by nebulization every 6 (six) hours as needed for wheezing or shortness of breath OK to fill supply 360 mL 11 12/05/19 25 Active albuterol HFA (PROVENTIL HFA,VENTOLIN HFA,PROAIR HFA) [...] care Assessment & Plan (08/08/2024 3:04 PM MANAGING MEMBER): Continue Trelegy Ellipta 200 daily He has [...] is currently in physical therapy, I recommend [place] after this is completed and he is [...] techniques - He is aware of the [place] Tobacco Quit line: 7-756-QEKR-YES for free services - 5 minutes spent discussing cessation He has nicotine patches at home and I have ordered several of each strength for him. He is only smoking one per day - he has not smoked today at all. He is due for annual lung cancer screening in December of 2024 Assessment & Plan (08/08/2024 3:04 PM MANAGING MEMBER): He continues to smoke 1/2 to 3/4 pack cigarettes per day - Smoking cessation counseling and techniques reviewed at length - Avoid triggers and use distraction techniques - He is aware of the [place] Tobacco Quit line: 6-120-RGWG-YES for free services - 5 minutes spent [...] techniques - He is aware of the [place] Tobacco Quit line: 4-084-PSED-YES for free services - 4 minutes spent discussing cessation He has nicotine patches at home He is due for annual lung cancer screening in December of 2024 Assessment & Plan (03/27/2024 11:43 AM CDT): - Smoking cessation counseling and techniques reviewed at length - Avoid triggers and use distraction techniques - Participate in support groups - Information given regarding [place] Tobacco Quit line: 3-323-MEJJ-YES for free services - 4 minutes spent [...] on file Legal Sex Male 11:08 AM MANAGING MEMBER Gender Identity Not on file Sexual Orientation [...] on file Medical Devices Implanted Type Area Entry Level Finance Device Identifier Shelf Expiration Date Model / Serial / Lot [employer] Macy [id number] Titan Lock-Out Inflatable Self Contain Fluid Fill Tube Standard Latex Free - Sn/A - [id number] Implanted:Qty: 1 on 11/10/2018 by Rick Gil MD at [facility] Other - see comments N/A: Penis Coloplast Macy 07/11/2023 [id number] / N/A / [id number] Description:Assembly Kit Following select items implanted: Connectors Rear tip extenders Coloplast Macy [id number] Titan Coloplast Lock-Out Inflatable Self Contain Fluid Fill Valve Latex Free - Sn/A - [id number] Implanted:Qty: 1 on 11/10/2018 by Rick Gil MD at [facility] Other - see comments Right: Abdomen Coloplast Macy 08/17/2023 [id number] / N/A / [id number] Description:[employer] Coloplast Macy [id number] Titan Coloplast Lock-Out 18cm Pump Set Inflatable Fluid Fill Soft Latex Free - Sn/A - [id number] Implanted:Qty: 1 on 11/10/2018 by Rick Gil MD at [facility] Other - see comments Right: Penis Coloplast Macy 02/13/2023 [id number] / N/A / [id number] Cordis Mynxgrip 5fr Balloon Catheter Integrate Sealant Lock Latex Free [id number] - [id number] Implanted:Qty: 1 on 03/06/2024 by Mat Byrne MD at [facility] 01/18/2026 [id number] / / [id number] Insurance [facility] Care Teams Hearing Examiner Relationship Specialty Start Date End Date Mark Scott MD [address] [place] [address] PCP - General 11/10/18
--- OUTSIDE RECORDS SUMMARY | 2025-03-21 12:18 | XMS_ITS | Clinical Summary ---
Author Organization [facility] Address [address] [place] [address] Care Team Providers Care Group Insurance Special Agent Name Role Phone Paul Rene MD Primary Care Provider Source Comments [facility],non-owned Affiliates and Associated Physician Practices is amultiple site organization consisting of ambulatory clinics and hospital sitesin [place], [place], [place] and [place]. This disclosure is being madepursuant to the Care Everywhere program and may not contain all information available regarding this patient. Last updated 18.[facility] Allergies Active Allergy Reactions Criticality Noted Date [...] on file Legal Sex Male 5:47 PM STRIPPER APPRENTICE Gender Identity Not on file Sexual Orientation Not on file Last Filed Vital Signs Vital Sign Reading Time Taken Comments Blood Pressure 145/82 07/21/2022 12:24 PM STRIPPER APPRENTICE Pulse 50 07/21/2022 12:24 PM STRIPPER APPRENTICE Temperature 36.4 C (97.6 F) 07/21/2022 12:24 PM STRIPPER APPRENTICE Respiratory Rate 18 07/21/2022 12:2 4 PM STRIPPER APPRENTICE Oxygen Saturation 91% 07/21/2022 12: 24 PM STRIPPER APPRENTICE Inhaled Oxygen Concentration - - Weight 86.1 kg (189 lb 13.1 oz) 07/20/2022 8:44 PM STRIPPER APPRENTICE Height 173.5 cm (5' 8.31) 07/20/2022 8:44 PM CS T Body Mass Index 28.6 07/20/2022 8:44 PM STRIPPER APPRENTICE Plan of Treatment Health Maintenance Due Date [...] PANEL (CALCIUM TOTAL) STAT 07/19/2022 3:18 PM STRIPPER APPRENTICE from Last 3 Months or Most Recently Relevant to Health Maintenance Results * (ABNORMAL) BASIC METABOLIC PANEL (CALCIUM TOTAL) (07/19/2022 3:18 PM STRIPPER APPRENTICE) BUN 13 7 - 26 mg/dL 07/19/2022 4:04 PM [facility] Creatinine 1.17(H) 0.71 - 1.16 mg/dL 07/19/2022 4:04 PM [facility] Sodium 140 136 - 145 mmol/L 07/19/2022 4:04 PM [facility] Potassium 3.9 3.5 - 4.5 mmol/L 07/19/2022 4:04 PM [facility] Chloride 108(H) 98 - 107 mmol/L 07/19/2022 4:04 PM [facility] CO2 23 22 - 29 mmol/L 07/19/2022 4:04 PM [facility] Glucose 95 70 - 115 mg/dL 07/19/2022 4:04 PM [facility] Calcium 9.1 8.4 - 10.2 mg/dL 07/19/2022 4:04 PM [facility] Anion Gap 13 8 - 18 07/19/2022 4:04 PM [facility] BUN/Creatinine Ratio 11 7 - 23 07/19/2022 4:04 PM [facility] Osmolality Calculated 290 270 - 300 mOsm/kg 07/19/2022 4:04 PM [facility] eGFR by CKD-EPI 70(L) >=90 mL/min/1.7 3 m2 07/19/2022 4:04 PM [facility] Blood BLOOD SPECIMEN / Unknown Venipuncture / Unknown 07/19/2022 3:18 PM STRIPPER APPRENTICE 07/19/2022 3:36 PM [facility] us Teo Steinberg MD LAB - CHEMISTRY ORDERABLES Final Result [facility] [address] [place] [address], [facility] [phone] from Last 3 Months or Most Recently Relevant to Health Maintenance Insurance [facility] AET[employer] MEDICARE ADV TPL [employer] LIABILITY Advance Directives * Full Code (Latest Code Status on File) Date Activated Date Inactivated Comments 07/20/2022 12:23 AM 07/21/2022 6:10 PM Care Teams Group Insurance Special Agent Relationship Specialty Start Date End Date Paul Rene MD [address] [place] [address] PCP - General 07/01/22
--- OUTSIDE RECORDS SUMMARY | 2025-03-21 12:18 | XMS_ITS ---
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 He is only smoking one per day - he has not smoked today at all. 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 MOLASSES): He continues to smoke 1/2 to 3/4 pack cigarettes per day - Smoking cessation counseling and techniques reviewed at length - Avoid triggers and use distraction techniques - He is aware of the [place] Tobacco Quit line: 4-254-MTVV-YES for free services - 5 minutes spent [...] aware of the [place] Tobacco Quit line: 6-010-KVSX-YES for free services - 4 minutes spent discussing cessation He has nicotine patches at home He is due for annual lung cancer screening in December of 2024 Assessment & Plan (03/27/2024 11:43 AM CDT): - Smoking cessation counseling and techniques reviewed at length - Avoid triggers and use distraction techniques - Participate in support groups - Information given regarding [place] Tobacco Quit line: 4-314-UZLM-YES for free services - 4 minutes spent [...]
--- OUTSIDE RECORDS SUMMARY | 2025-03-21 12:18 | XMS_ITS | Encounter Summary ---
Author Organization [facility] Address [address] [place] [address] Care Team Providers Care Library Consultant Name Role Phone Unavailable Primary Care Provider Unavailabl e Encounter Details Date Type Department Care Team ([facility] Contact Info) Description 03/01/2025 Telephone [facility] Radiation Therapy [address] [place] [address] Charlotte Varner, BRIDGET Social History Tobacco Use Types Packs/Day Years Used Date Smoking Tobacco: Former Cigarettes 0.5 50.1 0 10/15/1974 - 11/30/2024 Alcohol Use Standard Drinks/Week Comments Yes 0 (1 standard drink = 0.6 oz pur e alcohol) ONLY DURING HOLIDAYS Sex and Gender Information Value Date Recorded Sex Assigned at Not on file Legal Sex Male 1:20 PM PRODUCT DEVELOPER Gender Identity Not on file Sexual Orientation Not on file documented as of this encounter Plan of Treatment Upcoming Encounters Date Type Department Care Team ([facility] Contact Info) Description 03/28/2025 9:30 AM CDT Office Visit [facility] Oncology and Hematology - [place] [address] [facility] [facility] [[email or web address]] [address] [place] [address] Markell Godfrey MD [address] [place] [address] documented as of this encounter Visit Diagnoses Not on filedocumented in this encounter
== END 2025-03-21 12:13 | disposition home or self-care (01) ==
PROVIDERS: PCP Family Medicine; Visit Provider Internal Medicine Hematology & Oncology
DX: C10.2 Malignant neoplasm of lateral wall of oropharynx (principal); N40.0 Benign prostatic hyperplasia without lower urinary tract symptoms
CPT/HCPCS: 78815; A9552

== ENCOUNTER 2025-06-28 09:58 | Outpatient (CLI) | payer MEDICARE, MEDICAID, SELFPAY ==
--- NOTE | ~2025-06-28 | CT_ITS ---
EXAMINATION: CT soft tissue neck chest w DATE: 06/28/2025 10:44 INDICATION: Oropharyngeal cancer. TECHNIQUE: Computed tomography (CT) of the neck and chest was performed with 75 mL Omnipaque 350 intravenous contrast. Automated exposure control and iterative reconstruction technique were employed. The dose-length product was 799.12 mGy-cm. COMPARISON: Neck CT 10/04/2024, PET/CT 03/21/2025, 10/25/24 FINDINGS: CT NECK: There are nodules in the thyroid measuring up to 12 mm, likely not clinically significant. There is mucosal thickening in the pharynx and larynx and fat stranding in the neck, consistent with changes of radiation therapy. There are no pathologically enlarged lymph nodes. There is plaque in the proximal internal carotid arteries with 0% stenosis relative to normal distal artery lumen diameters. There is severe cervical spondylosis. CT CHEST: There is mild scarring at the lung apices. There are 2 mm and 4 mm nodules in right upper lobe, stable from 10/25/2024, likely benign. There is moderate emphysema. There is mild atelectasis bilaterally. No pleural effusion. The heart size is normal. There are coronary artery calcifications. No pericardial effusion. There is mild thoracic spondylosis. IMPRESSION: 1. No evidence of malignancy. 2. Moderate emphysema. Reviewed, dictated and finalized at location E.
--- OUTSIDE RECORDS SUMMARY | 2025-06-28 10:37 | XMS_ITS ---
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 He is only smoking one per day - he has not smoked today at all. 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): He continues to smoke 1/2 to 3/4 pack cigarettes per day - Smoking cessation counseling and techniques reviewed at length - Avoid triggers and use distraction techniques - He is aware of the [place] Tobacco Quit line: 3-331-CFBT-YES for free services - 5 minutes spent [...] techniques - He is aware of the [place] Tobacco Quit line: 0-923-UGKC-YES for free services - 4 minutes spent discussing cessation He has nicotine patches at home He is due for annual lung cancer screening in December of 2024 Assessment & Plan (03/27/2024 11:43 AM CDT): - Smoking cessation counseling and techniques reviewed at length - Avoid triggers and use distraction techniques - Participate in support groups - Information given regarding [place] Tobacco Quit line: 1-630-MUXB-YES for free services - 4 minutes spent discussing cessation Continue nicotine patches, order sent today Annual LDCT due 12/2024 Dyspnea 02/22/2024 Current Treatment and Therapy Plans No current plan information found. Past Treatment and Therapy Plans No past plan information found. Lifetime Dose Tracking * Chemical Lifetime Dose Automatic Entry Manual Entr y Fluoro Time 4.5 minutes 0 minutes 4.5 minutes Air kerma at the reference point (Ka,r) 306 mGy 0 mGy 306 mGy
--- OUTSIDE RECORDS SUMMARY | 2025-06-28 10:37 | XMS_ITS | Clinical Summary ---
Author Organization [facility] Herbie asencio Cosmo [place] [address] Care Team Providers Care Assigner Name Role Phone Unavailable Primary Care Provider [...] Encounters Date Type Department Care Team Description 04/04/2025 Abstract [facility] Oncology and Hematology - Luis [address] [place] [address] Markell Godfrey MD 03/28/2025 9:30 AM CDT Office Visit [facility] Oncology and Hematology 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 Gender Identity Not on file Sexual Orientation Not on file Last Filed Vital Signs Vital Sign Reading Time Taken Comments Blood Pressure 137/83 03/28/2025 9:31 AM CDT Pulse 86 03/28/2025 9:31 AM CDT Temperature 36.6 C (97.8 F) 03/28/2025 9:31 AM CDT Respiratory Rate 16 03/28/2025 9:31 AM CDT Oxygen Saturation 96% 03/28/2025 9:31 AM CDT Inhaled Oxygen Concentration - - Weight 84.8 kg (187 lb) 03/28/2025 9:31 AM CDT Height 175.3 cm (5' 9) 10/15/2024 1:25 PM PRINCIPAL TECHNOLOGIST Body Mass Index 27.62 10/15/2024 1:25 PM PRINCIPAL TECHNOLOGIST Plan of Treatment Upcoming Encounters Date Type Department Care Team (Late st Contact Info) Description 07/05/2025 10:45 AM CDT Office Visit [facility] Oncology and Hematology [facility] [place] [place] [address] [place] [address] Markell Godfrey MD [address] [facility] [address] [place] [address] Health Maintenance Due Date Last Done Comments Pre-Diabetes and Diabetes Screening 1960 PNEUMOCOCCAL VACCINE 50+ YEA RS (1 of 2 - PCV) 01/10/1979 COLORECTAL SCREENING 01/10/2005 Colorectal Cancer Screening 01/10/2005 FIT-DNA Q 3 years 01/10/2005 FIT/FOBT Q 1 year 01/10/2005 Flex Sig/CT Colonography Q 5 years 01/10/2005 Lung Cancer Screening 01/10/2010 RSV VACCINE (60+ or ) (1 - Risk 50-74 years 1-dose series) 01/10/2010 ZOSTER VACCINE (1 of 2) 01/10/2010 Medicare Advantage ([place]) Prev entative Visit/Annual Wellness Visit 09/12/2024 Abdominal Aortic Aneurysm (AAA) Screening 01/10/2025 INFLUENZA VACCINE (#1) 2025 08/04/2022, 2019 DTAP/TDAP/TD VACCINES (2 - Td or Tdap) 07/19/2032 Insurance
--- OUTSIDE RECORDS SUMMARY | 2025-06-28 10:37 | XMS_ITS | Clinical Summary ---
Author Organization [facility] Address [address] [place] [address] Care Team Providers Care Procedures Analyst Name Role Phone Mark Scott MD Primary Care Provider +1- [phone] Allergies Active Allergy Reactions Criticality Noted Date [...] 24 hours 90 patch 1 5 Active albuterol 2.5 mg /3 mL (0.083 %) nebulizer solution Take 3 mL (2.5 mg total) by nebulization every 6 (six) hours as needed for wheezing or shortness of breath OK to fill day supply 360 mL 11 5 Active albuterol HFA (PROVENTIL HFA,VENTOLIN HFA,PROAIR HFA) 90 mcg/actuation inhaler Inhale 2 puffs every 6 (six) hours as needed for wheezing or shortness of breath 3 each 3 5 12/05/19 26 Active fluticasone-ume clidin-vilanter (Trelegy Ellipta) 200-62.5-25 mcg inhaler Inhale 1 puff daily 180 each 6 5 Active Active Problems Problem Noted Date [...] care Assessment & Plan (08/08/2024 3:04 PM DUAL RATE SUPERVISOR): Continue Trelegy Ellipta 200 daily He has [...] is currently in physical therapy, I recommend [place] after this is completed and he is [...] aware of the [place] Tobacco Quit line: 3-915-FRCP-YES for free services - 5 minutes spent discussing cessation He has nicotine patches at home and I have ordered several of each strength for him. He is only smoking one per day - he has not smoked today at all. He is due for annual lung cancer screening in December of 2024 Assessment & Plan (08/08/2024 3:04 PM DUAL RATE SUPERVISOR): He continues to smoke 1/2 to 3/4 pack cigarettes per day - Smoking cessation counseling and techniques reviewed at length - Avoid triggers and use distraction techniques - He is aware of the [place] Tobacco Quit line: 4-803-DYOP-YES for free services - 5 minutes spent [...] aware of the [place] Tobacco Quit line: 5-601-UEKI-YES for free services - 4 minutes spent discussing cessation He has nicotine patches at home He is due for annual lung cancer screening in December of 2024 Assessment & Plan (03/27/2024 11:43 AM CDT): - Smoking cessation counseling and techniques reviewed at length - Avoid triggers and use distraction techniques - Participate in support groups - Information given regarding [place] Tobacco Quit line: 9-672-NBKH-YES for free services - 4 minutes spent discussing cessation Continue nicotine patches, order sent today Annual LDCT due 12/2024 Dyspnea 02/22/2024 Surgical History Surgery Date Site/Laterality Comments FOOT FRACTURE SURGERY Left WRIST FRACTURE SURGERY Right SKIN CANCER EXCISION back Medical History Medical History Date Comments COPD (chronic obstructive pulmonary disease) Tobacco abuse Skin cancer Erectile dysfunction Asthma Hypertension 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 Family History Medical History Relation Name Comments Arthritis Mother Relation Name Status Comments Mother Social History Tobacco Use Types Packs/Day Years Used Date Smoking Tobacco: Every Day Cigarettes 0.1 52.8 Started: 1972 Smokeless Tobacco: Never Tobacco Cessation:Ready [...] on file Legal Sex Male 11:08 AM DUAL RATE SUPERVISOR Gender Identity Not on file Sexual [...] Cancer Screening-PSA 1960 Hepatitis B Screening 01/10/1978 Abdominal Aortic Aneurysm (A AA) Screen 01/10/2025 07/19/2022 Well Visit 65+ 01/10/2025 Fall Risk Assessment 03/06/2025 03/06/2024 Covid-19 Vaccine (2 - season) 05/13/202501/2021 Influenza Vaccine (#1) 2025 2, 06/23/2020, 08/13/2014 DTaP/Tdap/Td Vaccine (2 - Td or Tdap) 07/19/203203/2022 Pneumococcal vaccine 65+ Completed 07/05/2023 Zoster Vaccine Completed 09/14/2023, 07/05/2023 Medical Devices Implanted Type Area Music Theory Teacher Device Identifier Shelf Expiration Date Model / Serial / Lot ColdateIITians Macy [id number] Titan Lock-Out Inflatable Self Contain Fluid Fill Tube Standard Latex Free - Sn/A - [id number] Implanted:Qty: 1 on 11/10/2018 by Rick Gil MD at [facility] Other - see comments N/A: Penis Coloplast Macy 07/11/2023 [id number] / N/A / [id number] Description:Assembly Kit Following select items implanted: Connectors Rear tip extenders Coloplast Macy [id number] Titan Coloplast Lock-Out Inflatable Self Contain Fluid Fill Valve Latex Free - Sn/A - [id number] Implanted:Qty: 1 on 11/10/2018 by Rick Gil MD at [facility] Other - see comments Right: Abdomen Coloplast Macy 08/17/2023 [id number] / N/A / [id number] Description:[place] Coloplast Macy [id number] Titan Coloplast Lock-Out 18cm Pump Set Inflatable Fluid Fill Soft Latex Free - Sn/A - [id number] Implanted:Qty: 1 on 11/10/2018 by Rick Gil MD at [facility] Other - see comments Right: Penis Coloplast Macy 02/13/2023 [id number] / N/A / [id number] Cordis Mynxgrip 5fr Balloon Catheter Integrate Sealant Lock Latex Free [id number] - [id number] Implanted:Qty: 1 on 03/06/2024 by Mat Byrne MD at [facility] 01/18/2026 [id number] / / [id number] Insurance [facility] Care Teams Procedures Analyst Relationship Specialty Start Date End Date Mark Scott MD [address] [place] [address] PCP - General 11/10/18
--- OUTSIDE RECORDS SUMMARY | 2025-06-28 10:37 | XMS_ITS | Clinical Summary ---
Author Organization [facility] Address [address] [place] [address] Care Team Providers Care Tube Draw Helper Name Role Phone Paul Rene MD Primary Care Provider Source Comments [facility],non-owned Affiliates and Associated Physician Practices is amultiple site organization consisting of ambulatory clinics and hospital sitesin [place], [place], [place] and [place]. This disclosure is being madepursuant to the Care Everywhere program and may not contain all information available regarding this patient. 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 Gender Identity Not on file Sexual Orientation Not on file Last Filed Vital Signs Vital Sign Reading Time Taken Comments Blood Pressure 145/82 07/21/2022 12:24 PM BARREL ENDSHAKE ADJUSTER Pulse 50 07/21/2022 12:24 PM BARREL ENDSHAKE ADJUSTER Temperature 36.4 C (97.6 F) 07/21/2022 12:24 PM BARREL ENDSHAKE ADJUSTER Respiratory Rate 18 07/21/2022 12:2 4 PM BARREL ENDSHAKE ADJUSTER Oxygen Saturation 91% 07/21/2022 12: 24 PM BARREL ENDSHAKE ADJUSTER Inhaled Oxygen Concentration - - Weight 86.1 kg (189 lb 13.1 oz) 07/20/2022 8:44 PM BARREL ENDSHAKE ADJUSTER Height 173.5 cm (5' 8.31) 07/20/2022 8:44 PM CS T Body Mass Index 28.6 07/20/2022 8:44 PM BARREL ENDSHAKE ADJUSTER Plan of Treatment Health Maintenance Due Date [...] YEAR 2024 AAA SCREENING 01/10/2025 INFLUENZA VACCINE (#1) 2025 0, 08/13/2014 SCREENING FOR DIABETES 07/19/2025 07/19/2022 DTAP/TDAP/TD [...] PANEL (CALCIUM TOTAL) STAT 07/19/2022 3:18 PM BARREL ENDSHAKE ADJUSTER from Last 3 Months or Most Recently Relevant to Health Maintenance Results * (ABNORMAL) BASIC METABOLIC PANEL (CALCIUM TOTAL) (07/19/2022 3:18 PM BARREL ENDSHAKE ADJUSTER) BUN 13 7 - 26 mg/dL 07/19/2022 4:04 PM [facility] Creatinine 1.17(H) 0.71 - 1.16 mg/dL 07/19/2022 4:04 PM [facility] Sodium 140 136 - 145 mmol/L 07/19/2022 4:04 PM [facility] Potassium 3.9 3.5 - 4.5 mmol/L 07/19/2022 4:04 PM [facility] Chloride 108(H) 98 - 107 mmol/L 07/19/2022 4:04 PM [facility] CO2 23 22 - 29 mmol/L 07/19/2022 4:04 PM [facility] Glucose 95 70 - 115 mg/dL 07/19/2022 4:04 PM [facility] Calcium 9.1 8.4 - 10.2 mg/dL [...] Unknown Venipuncture / Unknown 07/19/2022 3:18 PM BARREL ENDSHAKE ADJUSTER 07/19/2022 3:36 PM [facility] us Teo Steinberg MD LAB - CHEMISTRY ORDERABLES Final Result [facility] [address] [place] [address], [facility] [phone] from Last 3 Months or Most Recently Relevant to Health Maintenance Insurance [facility] A[employer] MEDICARE ADV TPL THIRD LIBERTARIAN LIABILITY Advance Directives * Full Code (Latest Code Status on File) Date Activated Date Inactivated Comments 07/20/2022 12:23 AM 07/21/2022 6:10 PM Care Teams Tube Draw Helper Relationship Specialty Start Date End Date Paul Rene MD [address] [place] [address] PCP - General 07/01/22
--- OUTSIDE RECORDS SUMMARY | 2025-06-28 10:37 | XMS_ITS | Patient Health Record ---
Author Organization [facility] Address [address] [place] [address] Care Team Providers Care Dynamite Cartridge Crimper Name Role Phone MonicoNick pathak Primary Care Provider [phone] Louis Webb MD Unavailable Unavailable Reason For Referral No Information Plan Of Treatment No Information Insurance Providers Payer Name Payer Address Payer Phone Subscriber Number Group Number Insured Name Patient Relationship to Insured Coverage Start Date Coverage End Date [employer] [address] [place] [address] [id number] Matias Lin Self - patient is the insured
--- OUTSIDE RECORDS SUMMARY | 2025-06-28 10:37 | XMS_ITS | Encounter Summary ---
Author Organization [facility] Address [address] [place] [address] Care Team Providers Care Tractor Trailer Mechanic Name Role Phone Unavailable Primary Care Provider Unavailabl e Encounter Details Date Type Department Care Team ([facility] Contact Info) Description 03/01/2025 Telephone [facility] Radiation Therapy [address] [place] [address] Charlotte Varner, BRIDGET Social History Tobacco Use Types Packs/Day Years Used Date Smoking Tobacco: Former Cigarettes 0.5 50.1 0 10/15/1974 - 11/30/2024 Alcohol Use Standard Drinks/Week Comments Yes 0 (1 standard drink = 0.6 oz pur e alcohol) ONLY DURING HOLIDAYS Sex and Gender Information Value Date Recorded Sex Assigned at Not on file 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
--- OUTSIDE RECORDS SUMMARY | 2025-06-28 10:37 | XMS_ITS | Patient Health Record ---
Author Organization [facility] Billing Info Address [address] [place] [address] Support Name Relationship Address Phone Lan Lucy Emergency Contact [address] [place] [address] Matias Benoit Guarantor Unknown [phone] Reason For Referral No Information Plan Of Treatment No Information
[2025-06-28 10:40] LABS: Estimated Glomerular Filt Rate > 60
== END 2025-06-28 09:59 | disposition home or self-care (01) ==
PROVIDERS: PCP Family Medicine; Visit Provider Internal Medicine Hematology & Oncology
DX: J43.9 Emphysema, unspecified (principal); C10.9 Malignant neoplasm of oropharynx, unspecified
CPT/HCPCS: 70491; 71260; Q9967

== ENCOUNTER 2025-07-05 09:58 | Outpatient (CLI) | payer MEDICARE, MEDICAID, SELFPAY ==
[2025-07-05 10:13] LABS: Hematocrit 38.9 % (42.0-52.0); Hemoglobin 12.5 g/dL (14.0-18.0); Immature Granulocyte Percent A 1.4 % (0-0.5); Lymphocytes Absolute Auto 0.97 K/mm3 (0.9-3.2); Mean Corpuscular HGB Conc 32.1 g/dl (32-36); Mean Corpuscular Hemoglobin 28.2 pg (26-34); Mean Corpuscular Volume 87.8 fl (80-100); Nucleated Red Blood Cells Absolute Auto 0.000 K/mm3 (0.0-0.012); Nucleated Red Blood Cells Perc 0.0 % (0.0-0.2); Platelet Count Result 184 k/mm3 (150-375); Red Blood Count 4.43 M/mm3 (4.6-6.20); White Blood Count 4.3 K/mm3 (4.5-10.0)
[2025-07-05 10:16] LABS: Blood Urea Nitrogen 21 mg/dL (8-26); Carbon Dioxide 30 mmol/L (22-30); Chloride 101 mmol/L (98-109); Estimated Glomerular Filt Rate > 60; Glucose 110 mg/dL (70-105); Ionized Calcium (POC) 1.22 mmol/L (1.11-1.31); Potassium 3.8 mmol/L (3.5-4.9); Sodium 138 mmol/L (138-146)
--- OUTSIDE RECORDS SUMMARY | 2025-07-05 10:17 | XMS_ITS ---
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 He is only smoking one per day - he has not smoked today at all. 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): He continues to smoke 1/2 to 3/4 pack cigarettes per day - Smoking cessation counseling and techniques reviewed at length - Avoid triggers and use distraction techniques - He is aware of the [place] Tobacco Quit line: 9-436-PFUS-YES for free services - 5 minutes spent [...] aware of the [place] Tobacco Quit line: 4-376-KUTL-YES for free services - 4 minutes spent discussing cessation He has nicotine patches at home He is due for annual lung cancer screening in December of 2024 Assessment & Plan (03/27/2024 11:43 AM CDT): - Smoking cessation counseling and techniques reviewed at length - Avoid triggers and use distraction techniques - Participate in support groups - Information given regarding [place] Tobacco Quit line: 4-068-KNZH-YES for free services - 4 minutes spent [...]
--- OUTSIDE RECORDS SUMMARY | 2025-07-05 10:17 | XMS_ITS | Patient Health Record ---
Author Organization [facility] Address [address] [place] [address] Care Team Providers Care Lay Out Drafter Name Role Phone MonicoNick pathak Primary Care Provider Louis Webb MD Unavailable Unavailable Reason For Referral No Information Plan Of Treatment No Information Insurance Providers Payer Name Payer Address Payer Phone Subscriber Number Group Number Insured Name Patient Relationship to Insured Coverage Start Date Coverage End Date [employer] [address] [place] [address] [phone] [id number] Matias Lin Self - patient is the insured
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
--- OUTSIDE RECORDS SUMMARY | 2025-07-05 10:18 | XMS_ITS | Clinical Summary ---
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 He is only smoking one per day - he has not smoked today at all. 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): He continues to smoke 1/2 to 3/4 pack cigarettes per day - Smoking cessation counseling and techniques reviewed at length - Avoid triggers and use distraction techniques - He is aware of the [place] Tobacco Quit line: 3-778-AUUW-YES for free services - 5 minutes spent [...] techniques - He is aware of the [place] Tobacco Quit line: 6-425-WSKN-YES for free services - 4 minutes spent discussing cessation He has nicotine patches at home He is due for annual lung cancer screening in December of 2024 Assessment & Plan (03/27/2024 11:43 AM CDT): - Smoking cessation counseling and techniques reviewed at length - Avoid triggers and use distraction techniques - Participate in support groups - Information given regarding [place] Tobacco Quit line: 5-532-JHSG-YES for free services - 4 minutes spent [...] on file Legal 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 Gender Identity Not on file Sexual [...] 09/14/2023, 07/05/2023 Medical Devices Implanted Type Area Obstetrician/Gynecologist Device Identifier Shelf Expiration Date Model / Serial / Lot ColDataNitro Macy [id number] Titan Lock-Out Inflatable Self Contain Fluid Fill Tube Standard Latex Free - Sn/A - [id number] Implanted:Qty: 1 on 11/10/2018 by Rick Gil MD at [facility] Other - see comments N/A: Penis Coloplast Macy 07/11/2023 [id number] / N/A / [id number] Description:Assembly Kit Following select items implanted: Connectors Rear tip extenders Coloplast Macy [id number] Titan Coloplast Lock-Out Inflatable Self Contain Fluid Fill Valve Latex Free - Sn/A - [id number] Implanted:Qty: 1 on 11/10/2018 by Rick Gil MD at [facility] Other - see comments Right: Abdomen Coloplast Macy 08/17/2023 [id number] / N/A / [id number] Description:[place] Coloplast Macy [id number] Titan Coloplast Lock-Out 18cm Pump Set Inflatable Fluid Fill Soft Latex Free - Sn/A - [id number] Implanted:Qty: 1 on 11/10/2018 by Rick Gil MD at [facility] Other - see comments Right: Penis Coloplast Macy 02/13/2023 [id number] / N/A / [id number] Cordis Mynxgrip 5fr Balloon Catheter Integrate Sealant Lock Latex Free [id number] - [id number] Implanted:Qty: 1 on 03/06/2024 by Mat Byrne MD at [facility] 01/18/2026 [id number] / / [id number] Insurance [facility] Care Teams Subway Repair Supervisor Relationship Specialty Start Date End Date Mark Scott MD [address] [place] [address] PCP - General 11/10/18
--- OUTSIDE RECORDS SUMMARY | 2025-07-05 10:18 | XMS_ITS | Patient Health Record ---
Author Organization [facility] Billing Info Address [address] [place] [address] Support Name Relationship Address Phone Lan Lucy Emergency Contact [address] [place] [address] Matias Benoit Guarantor Unknown [phone] Reason For Referral No Information Plan Of Treatment No Information
--- OUTSIDE RECORDS SUMMARY | 2025-07-05 10:18 | XMS_ITS | Clinical Summary ---
Author Organization [facility] [employer] Address [address] [place] [address] Care Team Providers Care Assistant Program Director Name Role Phone Paul Rene MD Primary Care Provider Source Comments [facility] [employer],non-owned Affiliates and Associated Physician Practices is amultiple site organization consisting of ambulatory clinics and hospital sitesin [place], [place], [place] and [place]. This disclosure is being madepursuant to the Care Everywhere program and may not contain all information available regarding this patient. 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6 07/20/2022 8:44 PM COCOA BEAN CLEANER Plan of Treatment Health Maintenance Due [...] 01/10/1979 ZOSTER VACCINE (1 of 2) 01/10/1979 DEPRESSION SCREENING 09/12/2024 MEDICARE AWV CALENDAR YEAR 2024 AAA SCREENING 01/10/2025 COVID-19 VACCINE (2 - 2024-2 6 season) 2025 11/14/2020 INFLUENZA VACCINE (#1) 2025 0, 08/13/2014 SCREENING [...] PANEL (CALCIUM TOTAL) STAT 07/19/2022 3:18 PM [employer]OCOA BEAN CLEANER from Last 3 Months or Most Recently Relevant to Health Maintenance Results * (ABNORMAL) BASIC METABOLIC PANEL (CALCIUM TOTAL) (07/19/2022 3:18 PM COCOA BEAN CLEANER) BUN 13 7 - 26 mg/dL 07/19/2022 4:04 PM [facility] Creatinine 1.17(H) 0.71 - 1.16 mg/dL 07/19/2022 4:04 PM [facility] Sodium 140 136 - 145 mmol/L 07/19/2022 4:04 PM [facility] Potassium 3.9 3.5 - 4.5 mmol/L 07/19/2022 4:04 PM [facility] Chloride 108(H) 98 - 107 mmol/L 07/19/2022 4:04 PM [facility] CO2 23 22 - 29 mmol/L 07/19/2022 4:04 PM [facility] Glucose 95 70 - 115 mg/dL [...] Unknown Venipuncture / Unknown 07/19/2022 3:18 PM COCOA BEAN CLEANER 07/19/2022 3:36 PM [facility] us Teo Steinberg MD LAB - CHEMISTRY ORDERABLES Final Result [facility] [address] [place] [address], [facility] [phone] from Last 3 Months or Most Recently Relevant to Health Maintenance Insurance [facility] [employer] MEDICARE ADV TPL [employer] Advance Directives * Full Code (Latest Code Status on File) Date Activated Date Inactivated Comments 07/20/2022 12:23 AM 07/21/2022 6:10 PM Care Teams Assistant Program Director Relationship Specialty Start Date End Date Paul Rene MD [address] [place] [address] PCP - General 07/01/22
[2025-07-05 10:45] LABS: Alanine Aminotransferase 21 U/L (6-50); Albumin Level 4.0 g/dL (3.5-5.1); Alkaline Phosphatase 64 U/L (38-126); Anion Gap 6 mmol/L (4-12); Aspartate Amino Transferase 18 U/L (17-59); Bilirubin,Total 0.3 mg/dL (0.2-1.3); Blood Urea Nitrogen 21 mg/dL (9-20); Calcium 9.0 mg/dL (8.4-10.2); Carbon Dioxide 25 mmol/L (22-30); Chloride 104 mmol/L (98-107); Estimated Glomerular Filt Rate > 60; Glucose 111 mg/dL (65-110); Potassium 3.9 mmol/L (3.4-5.0); Sodium 135 mmol/L (137-145); Total Protein 6.9 g/dL (6.3-8.2)
== END 2025-07-05 09:59 | disposition home or self-care (01) ==
LOC: ANHLAB 09:59
PROVIDERS: PCP Family Medicine; Visit Provider Internal Medicine Hematology & Oncology
DX: C10.9 Malignant neoplasm of oropharynx, unspecified (principal)
CPT/HCPCS: 36415; 80047; 80053; 85025